=== PATIENT | female | born 1960 | race Caucasian/White ===

== ENCOUNTER 2017-03-19 18:19 | Emergency (ER) | payer MEDICAID ==
--- NOTE | 2017-03-19 20:09 | EDM.PDOCBH ---
ED HPI GENERAL MEDICAL PROBLEM - General Chief Complaint: Drug or Alcohol Abuse Stated Complaint: EVAL Time Seen by Provider: 03/19/17 19:39 Source of Information: Reports: Patient, Family, RN Notes Reviewed History Limitations: Reports: Intoxication - History of Present Illness INITIAL COMMENTS - FREE TEXT/NARRATIVE: 56-year-old female presents emergency department today with her parents concern about alcohol use, she has a long history of alcohol abuse and intoxication she has been drinking today parents found a half gallon of gin empty bottle into full half gallons of [place] at her apartment they believe she was drinking today she did admit to that she denies any suicidal ideation or homicidal ideation she has a history of alcohol withdrawal has been through treatment multiple times she is unwilling to go to treatment at this time. She is willing to provide blood work and urine Denies Pain Score (Numeric/FACES): 0 - Related Data Allergies Allergy/AdvReac Type Severity Reaction Status Date / Time Fish Containing Products Allergy Anaphylactic Verified 03/19/17 18:44 Shock nut - unspecified Allergy Anaphylactic Verified 03/19/17 18:44 Shock Home Meds: Home Meds Albuterol Sulfate [Ventolin Hfa] 1 - 2 puff INH Q4H PRN 03/19/17 [History] Doxepin [SINEquan] 50 mg PO BEDTIME 03/19/17 [History] EPINEPHrine [Epinephrine] 1 mg INJECT ASDIRECTED 03/19/17 [History] QUEtiapine [SEROquel] 100 mg PO BEDTIME 03/19/17 [History] Past Medical History HEENT History: Reports: Impaired Vision Respiratory History: Reports: Asthma 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: Psychiatric History: Reports: Addiction, Anxiety, Depression - Infectious Disease History Infectious Disease History: Reports: Chicken Pox - Past Surgical History HEENT Surgical History: Reports: Tonsillectomy Social & Family History - Tobacco Use Smoking Status *Q: Current Some Day Smoker Years of Tobacco use: 30 Packs/Tins Daily: 0.5 - Caffeine Use Caffeine Use: Reports: Coffee - Alcohol Use Days Per Week of Alcohol Use: 7 Number of Drinks Per Day: 7 Total Drinks Per Week: 49 - Recreational Drug Use Recreational Drug Use: No ED ROS GENERAL - Review of Systems Review Of Systems: See Below Constitutional: Reports: No Symptoms HEENT: Reports: No Symptoms Respiratory: Reports: No Symptoms Cardiovascular: Reports: No Symptoms GI/Abdominal: Reports: No Symptoms : Reports: No Symptoms Psychiatric: Reports: Agitation, Cravings, Depression. Denies: Homicidal Ideation, Suicidal Ideation ED EXAM, BEHAVIORAL HEALTH - Physical Exam Exam: See Below Exam Limited By: Intoxication General Appearance: Alert, No Apparent Distress Respiratory/Chest: No Respiratory Distress Psychiatric: Alert, Depressed Mood, Inattentive, Poor Eye Contact. No: Homicidal Thoughts, Suicidal Plan, Suicidal Thoughts, Auditory Hallucinations, Visual Hallucinations, Grandiose Thoughts, Pressured Speech, Paranoid Thoughts COURSE, BEHAVIORAL HEALTH COMP - Course Vital Signs: Last Vital Signs Temp 96.8 F 03/19/17 18:42 Pulse 101 H 03/19/17 18:42 Resp 16 03/19/17 18:42 BP 136/87 03/19/17 18:42 Pulse Ox 94 L 03/19/17 18:42 Orders, Labs, Meds: Laboratory Tests 03/19/17 03/19/17 03/19/17 Range/Units 20:18 20:18 20:18 WBC 3.2 L (4.5-11.0) K/uL RBC 4.32 (3.30-5.50) M/uL Hgb 14.2 (12.0-15.0) g/dL Hct 40.9 (36.0-48.0) % MCV 95 (80-98) fL MCH 33 H (27-31) pg MCHC 35 (32-36) % Plt Count 283 (150-400) K/uL Neut % (Auto) 46 (36-66) % Lymph % (Auto) 40 (24-44) % [place] % (Auto) 8 H (2-6) % Eos % (Auto) 4 (2-4) % Baso % (Auto) 4 H (0-1) % Sodium 146 (140-148) mmol/L Potassium 3.5 L (3.6-5.2) mmol/L Chloride 106 (100-108) mmol/L Carbon Dioxide 27 (21-32) mmol/L Anion Gap 16.5 H (5.0-14.0) mmol/L BUN 5 L (7-18) mg/dL Creatinine 0.6 (0.6-1.0) mg/dL Est Cr Clr Drug Dosing 78.06 mL/min Estimated GFR (MDRD) > 60 (>60) Glucose 90 (74-106) mg/dL Calcium 8.5 (8.5-10.1) mg/dL Total Bilirubin 0.6 (0.2-1.0) mg/dL AST 59 H (15-37) U/L ALT 45 (12-78) U/L Alkaline Phosphatase 126 H (46-116) U/L Total Protein 6.9 (6.4-8.2) g/dL Albumin 3.5 (3.4-5.0) g/dL Globulin 3.4 (2.3-3.5) g/dL Albumin/Globulin Ratio 1.0 L (1.2-2.2) TSH, Ultra Sensitive 7.955 H (0.358-3.740) uIU/mL Urine Color Urine Appearance Urine pH (4.5-8.0) Ur Specific [place] (1.008-1.030) Urine Protein (NEGATIVE) mg/dL Urine Glucose (UA) (NEGATIVE) mg/dL Urine Ketones (NEGATIVE) mg/dL Urine Occult Blood (NEGATIVE) Urine Nitrite (NEGATIVE) Urine Bilirubin (NEGATIVE) Urine Urobilinogen (NORMAL) mg/dL Ur Leukocyte Esterase (NEGATIVE) Urine RBC (0-5) Urine WBC (0-5) Ur Epithelial Cells Amorphous Sediment Urine Bacteria Urine Mucus Salicylates (2.0-20.0) mg/dL Urine Opiates Screen (NEGATIVE) Ur Oxycodone Screen (NEGATIVE) Urine Methadone Screen (NEGATIVE) Ur Propoxyphene Screen (NEGATIVE) Acetaminophen 0.0 L (10.0-30.0) ug/mL Ur Barbiturates Screen (NEGATIVE) Ur Tricyclics Screen (NEGATIVE) Ur Phencyclidine Scrn (NEGATIVE) Ur Amphetamine Screen (NEGATIVE) U Methamphetamines Scrn (NEGATIVE) Urine MDMA Screen (NEGATIVE) U Benzodiazepines Scrn (NEGATIVE) U Cocaine Metab Screen (NEGATIVE) U Marijuana (THC) Screen (NEGATIVE) Ethyl Alcohol mg/dL 03/19/17 03/19/17 03/19/17 Range/Units 20:18 20:18 22:16 WBC (4.5-11.0) K/uL RBC (3.30-5.50) M/uL Hgb (12.0-15.0) g/dL Hct (36.0-48.0) % MCV (80-98) fL MCH (27-31) pg MCHC (32-36) % Plt Count (150-400) K/uL Neut % (Auto) (36-66) % Lymph % (Auto) (24-44) % [place] % (Auto) (2-6) % Eos % (Auto) (2-4) % Baso % (Auto) (0-1) % Sodium (140-148) mmol/L Potassium (3.6-5.2) mmol/L Chloride (100-108) mmol/L Carbon Dioxide (21-32) mmol/L Anion Gap (5.0-14.0) mmol/L BUN (7-18) mg/dL Creatinine (0.6-1.0) mg/dL Est Cr Clr Drug Dosing mL/min Estimated GFR (MDRD) (>60) Glucose (74-106) mg/dL Calcium (8.5-10.1) mg/dL Total Bilirubin (0.2-1.0) mg/dL AST (15-37) U/L ALT (12-78) U/L Alkaline Phosphatase (46-116) U/L Total Protein (6.4-8.2) g/dL Albumin (3.4-5.0) g/dL Globulin (2.3-3.5) g/dL Albumin/Globulin Ratio (1.2-2.2) TSH, Ultra Sensitive (0.358-3.740) uIU/mL Urine Color Urine Appearance Urine pH (4.5-8.0) Ur Specific [place] (1.008-1.030) Urine Protein (NEGATIVE) mg/dL Urine Glucose (UA) (NEGATIVE) mg/dL Urine Ketones (NEGATIVE) mg/dL Urine Occult Blood (NEGATIVE) Urine Nitrite (NEGATIVE) Urine Bilirubin (NEGATIVE) Urine Urobilinogen (NORMAL) mg/dL Ur Leukocyte Esterase (NEGATIVE) Urine RBC (0-5) Urine WBC (0-5) Ur Epithelial Cells Amorphous Sediment Urine Bacteria Urine Mucus Salicylates 1.1 L (2.0-20.0) mg/dL Urine Opiates Screen Negative (NEGATIVE) Ur Oxycodone Screen Negative (NEGATIVE) Urine Methadone Screen Negative (NEGATIVE) Ur Propoxyphene Screen Negative (NEGATIVE) Acetaminophen (10.0-30.0) ug/mL Ur Barbiturates Screen Negative (NEGATIVE) Ur Tricyclics Screen Positive H (NEGATIVE) Ur Phencyclidine Scrn Negative (NEGATIVE) Ur Amphetamine Screen Negative (NEGATIVE) U Methamphetamines Scrn Negative (NEGATIVE) Urine MDMA Screen Negative (NEGATIVE) U Benzodiazepines Scrn Negative (NEGATIVE) U Cocaine Metab Screen Negative (NEGATIVE) U Marijuana (THC) Screen Negative (NEGATIVE) Ethyl Alcohol 396 mg/dL 03/19/17 03/19/17 Range/Units 22:16 22:35 WBC (4.5-11.0) K/uL RBC (3.30-5.50) M/uL Hgb (12.0-15.0) g/dL Hct (36.0-48.0) % MCV (80-98) fL MCH (27-31) pg MCHC (32-36) % Plt Count (150-400) K/uL Neut % (Auto) (36-66) % Lymph % (Auto) (24-44) % [place] % (Auto) (2-6) % Eos % (Auto) (2-4) % Baso % (Auto) (0-1) % Sodium (140-148) mmol/L Potassium (3.6-5.2) mmol/L Chloride (100-108) mmol/L Carbon Dioxide (21-32) mmol/L Anion Gap (5.0-14.0) mmol/L BUN (7-18) mg/dL Creatinine (0.6-1.0) mg/dL Est Cr Clr Drug Dosing mL/min Estimated GFR (MDRD) (>60) Glucose (74-106) mg/dL Calcium (8.5-10.1) mg/dL Total Bilirubin (0.2-1.0) mg/dL AST (15-37) U/L ALT (12-78) U/L Alkaline Phosphatase (46-116) U/L Total Protein (6.4-8.2) g/dL Albumin (3.4-5.0) g/dL Globulin (2.3-3.5) g/dL Albumin/Globulin Ratio (1.2-2.2) TSH, Ultra Sensitive (0.358-3.740) uIU/mL Urine Color Yellow Urine Appearance Clear Urine pH 8.0 (4.5-8.0) Ur Specific [place] 1.015 (1.008-1.030) Urine Protein Negative (NEGATIVE) mg/dL Urine Glucose (UA) Normal (NEGATIVE) mg/dL Urine Ketones Negative (NEGATIVE) mg/dL Urine Occult Blood Negative (NEGATIVE) Urine Nitrite Negative (NEGATIVE) Urine Bilirubin Negative (NEGATIVE) Urine Urobilinogen Normal (NORMAL) mg/dL Ur Leukocyte Esterase Negative (NEGATIVE) Urine RBC 0-5 (0-5) Urine WBC 0-5 (0-5) Ur Epithelial Cells Few Amorphous Sediment Few Urine Bacteria Rare Urine Mucus Few Salicylates (2.0-20.0) mg/dL Urine Opiates Screen (NEGATIVE) Ur Oxycodone Screen (NEGATIVE) Urine Methadone Screen (NEGATIVE) Ur Propoxyphene Screen (NEGATIVE) Acetaminophen (10.0-30.0) ug/mL Ur Barbiturates Screen (NEGATIVE) Ur Tricyclics Screen (NEGATIVE) Ur Phencyclidine Scrn (NEGATIVE) Ur Amphetamine Screen (NEGATIVE) U Methamphetamines Scrn (NEGATIVE) Urine MDMA Screen (NEGATIVE) U Benzodiazepines Scrn (NEGATIVE) U Cocaine Metab Screen (NEGATIVE) U Marijuana (THC) Screen (NEGATIVE) Ethyl Alcohol 297 mg/dL Departure - Departure Time of Disposition: 23:02 Disposition: DC/Tfer to Inpt Rehab Fac 62 Condition: Fair Clinical Impression: Alcohol abuse - Discharge Information Referrals: PCP,None [Primary Care Provider] - Forms: ED Department Discharge Additional Instructions: Please report to [facility] for further treatment - Assessment/Plan Plan: Assessment Acuity = acute Site and laterality = alcohol abuse and intoxication Etiology = EtOH Manifestations = memory issues Location of injury = Home Lab values = WBC low at 3.2 consistent with a leukopenia AST elevated 59 consistent elevated liver enzymes TSH elevated 7.955 uncertain etiology urine drug screen positive for tricyclics urinalysis unremarkable alcohol initially 396 after 2 hours 297 Plan She is in agreement to go to [facility] for detoxification family will consult social media specialist and pursue long-term alcohol treatment plans This note was dictated using [employer] voice recognition software please call with any questions on syntax or alina.
== END 2017-03-19 23:06 ==
LOC: JP.ED 18:19
DX: F10.129 Alcohol abuse with intoxication, unspecified (principal); J45.909 Unspecified asthma, uncomplicated; F32.9 Major depressive disorder, single episode, unspecified; F41.9 Anxiety disorder, unspecified; F17.210 Nicotine dependence, cigarettes, uncomplicated; Z91.013 Allergy to seafood; Z91.018 Allergy to other foods; Z79.899 Other long term (current) drug therapy; Y90.8 Blood alcohol level of 240 mg/100 ml or more
CPT/HCPCS: 36415; 80053; 80305; 81001; 84443; 85025; 99285; G0480

== ENCOUNTER 2017-04-29 14:57 | Emergency (ER) | payer MEDICAID ==
--- NOTE | 2017-04-29 15:38 | EDM.PDOCBH ---
ED HPI GENERAL MEDICAL PROBLEM - General Chief Complaint: Drug or Alcohol Abuse Stated Complaint: EVAL Time Seen by Provider: 04/29/17 15:25 Source of Information: Reports: Patient, Family History Limitations: Reports: Intoxication - History of Present Illness INITIAL COMMENTS - FREE TEXT/NARRATIVE: 56-year-old chronic alcoholic was brought in by her father after several days of heavy drinking. She was sent up to [facility] detox a month ago and the father has been working on getting a rule 25 to send the patient to nursing home treatment and he thinks he is close to getting it accepted. She wasn't answering her phone today however so he went into check on her and there were 4 bottles of hard liquor in the apartment, several of them empty. Patient herself is not complaining of vomiting or pain but admits to drinking. She is willing to go to detox. 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: Reports: Asthma 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: Psychiatric History: Reports: Addiction, Anxiety, Depression Other Psychiatric History: ADJUSTMENT DISORDER - Infectious Disease History Infectious Disease History: Reports: Chicken Pox - Past Surgical History HEENT Surgical History: Reports: Tonsillectomy Social & Family History - Tobacco Use Smoking Status *Q: Unknown Ever Smoked Years of Tobacco use: 30 Packs/Tins Daily: 0.5 - Caffeine Use Caffeine Use: Reports: Coffee - Alcohol Use Days Per Week of Alcohol Use: 7 Number of Drinks Per Day: 7 Total Drinks Per Week: 49 - Recreational Drug Use Recreational Drug Use: No ED ROS GENERAL - Review of Systems Review Of Systems: See Below Constitutional: Denies: Fever, Chills Respiratory: Denies: Shortness of Breath, Cough Cardiovascular: Denies: Chest Pain GI/Abdominal: Denies: Abdominal Pain, Nausea, Vomiting Skin: Reports: Other (Hypererythema of the face) Neurological: Reports: Other (Patient is suffering some significant short-term memory problems from the chronic alcoholism) Psychiatric: Reports: Anxiety ED EXAM, BEHAVIORAL HEALTH - Physical Exam Exam: See Below Exam Limited By: Intoxication General Appearance: Alert, No Apparent Distress Eye Exam: Bilateral Eye: EOMI (No jaundice) Throat/Mouth: Normal Inspection Respiratory/Chest: No Respiratory Distress, Lungs Clear Cardiovascular: Regular Rate, Rhythm, Extra Beats (Occasional ectopic beats) GI/Abdominal: Normal Bowel Sounds, Soft, Non-Tender Extremities: No: Pedal Edema Neurological: Alert, No Motor/Sensory Deficits, Oriented x 3 Psychiatric: Flat Affect COURSE, BEHAVIORAL HEALTH COMP - Course Vital Signs: Last Vital Signs Temp 98.2 F 04/29/17 17:13 Pulse 112 H 04/29/17 17:13 Resp 16 04/29/17 17:13 BP 117/77 04/29/17 17:13 Pulse Ox 95 04/29/17 17:13 Orders, Labs, Meds: Laboratory Tests 04/29/17 04/29/17 04/29/17 Range/Units 15:53 15:53 15:53 WBC 4.1 L (4.5-11.0) K/uL RBC 4.47 (3.30-5.50) M/uL Hgb 15.0 (12.0-15.0) g/dL Hct 43.0 (36.0-48.0) % MCV 96 (80-98) fL MCH 34 H (27-31) pg MCHC 35 (32-36) % Plt Count 213 (150-400) K/uL Neut % (Auto) 51 (36-66) % Lymph % (Auto) 39 (24-44) % [place] % (Auto) 4 (2-6) % Eos % (Auto) 4 (2-4) % Baso % (Auto) 2 H (0-1) % Sodium 144 (140-148) mmol/L Potassium 4.0 (3.6-5.2) mmol/L Chloride 104 (100-108) mmol/L Carbon Dioxide 21 (21-32) mmol/L Anion Gap 18.7 H (5.0-14.0) mmol/L BUN 9 D (7-18) mg/dL Creatinine 0.6 (0.6-1.0) mg/dL Est Cr Clr Drug Dosing 78.06 mL/min Estimated GFR (MDRD) > 60 (>60) Glucose 72 L (74-106) mg/dL Calcium 8.4 L (8.5-10.1) mg/dL Total Bilirubin 0.5 (0.2-1.0) mg/dL AST 48 H (15-37) U/L ALT 28 (12-78) U/L Alkaline Phosphatase 119 H (46-116) U/L Total Protein 7.3 (6.4-8.2) g/dL Albumin 3.5 (3.4-5.0) g/dL Globulin 3.8 H (2.3-3.5) g/dL Albumin/Globulin Ratio 0.9 L (1.2-2.2) Ethyl Alcohol 343 mg/dL Re-Assessment/Re-Exam: CBC, CMP and EtOH were obtained. Hopefully she can be transferred back out to [place] and when discharged will go directly to long-term treatment. EtOH is 0.363, the rest of her labs showed no significant issues preventing her from going to detox. Her father is willing to take her out there. Departure - Departure Time of Disposition: 17:16 Disposition: DC/Tfer to Other Condition: Fair Clinical Impression: Alcohol abuse Alcohol intoxication Qualifiers: Complication of substance-induced condition: with unspecified complication Qualified Code(s): F10.929 - Alcohol use, unspecified with intoxication, unspecified - Discharge Information Instructions: Alcohol Intoxication, [id number] Referrals: Sagrario Arevalo MD [Primary Care Provider] - Forms: ED Department Discharge Care Plan Goals: Patient will be transferred to [place] by her father for detox and hopefully extended chemical dependency treatment very soon.
== END 2017-04-29 17:17 | disposition other institution (70) ==
LOC: JP.ED 14:57
DX: F10.129 Alcohol abuse with intoxication, unspecified (principal); Y90.8 Blood alcohol level of 240 mg/100 ml or more; Z91.013 Allergy to seafood; Z91.018 Allergy to other foods
CPT/HCPCS: 36415; 80053; 85025; 99284; G0480

== ENCOUNTER 2017-08-01 13:24 | Emergency (ER) | payer MEDICAID ==
--- NOTE | 2017-08-01 13:59 | EDM.PDOC ---
ED HPI GENERAL MEDICAL PROBLEM - General Chief Complaint: Drug or Alcohol Abuse Stated Complaint: DRINKING NEEDS HELP Time Seen by Provider: 08/01/17 13:50 Source of Information: Reports: Patient, Family History Limitations: Reports: No Limitations - History of Present Illness INITIAL COMMENTS - FREE TEXT/NARRATIVE: pt has a long history of etoh abuse and many failures in terms of treatment. She did go through a period of a 2 year sobrietry. She has moved to a apartment and was trying to do outpt treatment. She has failed to continue to go and she is very intoxicated today. She has grown children and they do not live around here. Onset: Other ( Pt has a etoh problem for a number of years. ) Duration: Week(s): Location: Reports: Generalized Associated Symptoms: Reports: Other (pt has been drinking for a number of days. 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: Psychiatric History: Reports: Addiction, Anxiety, Depression Other Psychiatric History: ADJUSTMENT DISORDER - Infectious Disease History Infectious Disease History: Reports: Chicken Pox - Past Surgical History HEENT Surgical History: Reports: Tonsillectomy Social & Family History - Caffeine Use Caffeine Use: Reports: Coffee ED ROS GENERAL - Review of Systems Review Of Systems: See Below Constitutional: Reports: No Symptoms HEENT: Reports: No Symptoms Respiratory: Reports: No Symptoms Cardiovascular: Reports: No Symptoms Endocrine: Reports: No Symptoms GI/Abdominal: Reports: No Symptoms, Other (pt has not been eating well. ) : Reports: No Symptoms Musculoskeletal: Reports: No Symptoms Skin: Reports: No Symptoms Neurological: Reports: Other ( at first she was not willing to communicate but she did open open and talk. She is will to go to detox. ) - Physical Exam Exam: See Below Text/Narrative:: Pt is intoxicated but she is communicating. She is willinf to go to detox and treatment. Her dad is with her and is considering a committment. I discussed with her the possibly of a skilled nursing house. Exam Limited By: No Limitations General Appearance: Alert, Anxious, Other (pupils equal and reactive) Ears: Normal TMs Nose: Normal Inspection Throat/Mouth: Normal Inspection Head Exam: Atraumatic Neck: Normal Inspection Respiratory/Chest: No Respiratory Distress Cardiovascular: Regular Rate, Rhythm GI/Abdominal: Soft, Non-Tender (Female) Exam: Deferred Rectal (Female) Exam: Deferred Neuro Exam (Abbreviated): Alert, Oriented, Normal Cognition, Other (pt is intoxicated) Back Exam: Normal Inspection Extremities: Normal Inspection Psychiatric: Normal Affect Course - Vital Signs Last Recorded V/S: Last Vital Signs Temp 36.2 C 08/01/17 14:00 Pulse 125 H 08/01/17 14:00 Resp 18 08/01/17 14:00 BP 165/112 H 08/01/17 14:00 Pulse Ox 96 08/01/17 14:00 - Orders/Labs/Meds Orders: Active Orders 24 hr Category Date Time Status CULTURE URINE [RM] Stat Lab 08/01/17 14:58 Received DRUG SCREEN, URINE [URCHEM] Stat Lab 08/01/17 14:20 Ordered UA W/MICROSCOPIC [URIN] Urgent Lab 08/01/17 14:20 Ordered Labs: Laboratory Tests 08/01/17 08/01/17 08/01/17 Range/Units 13:51 13:51 13:51 WBC 6.0 (4.5-11.0) K/uL RBC 5.62 H (3.30-5.50) M/uL Hgb 16.9 H (12.0-15.0) g/dL Hct 47.7 (36.0-48.0) % MCV 85 (80-98) fL MCH 30 (27-31) pg MCHC 35 (32-36) % Plt Count 279 (150-400) K/uL Neut % (Auto) 53 (36-66) % Lymph % (Auto) 33 (24-44) % [place] % (Auto) 5 (2-6) % Eos % (Auto) 7 H (2-4) % Baso % (Auto) 3 H (0-1) % Sodium 139 L (140-148) mmol/L Potassium 3.5 L (3.6-5.2) mmol/L Chloride 101 (100-108) mmol/L Carbon Dioxide 23 (21-32) mmol/L Anion Gap 18.5 H (5.0-14.0) mmol/L BUN 4 L D (7-18) mg/dL Creatinine 0.8 (0.6-1.0) mg/dL Est Cr Clr Drug Dosing 58.55 mL/min Estimated GFR (MDRD) > 60 (>60) Glucose 93 (74-106) mg/dL Calcium 8.3 L (8.5-10.1) mg/dL Total Bilirubin 0.6 (0.2-1.0) mg/dL AST 40 H (15-37) U/L ALT 31 (12-78) U/L Alkaline Phosphatase 117 H (46-116) U/L Total Protein 8.3 H (6.4-8.2) g/dL Albumin 4.1 (3.4-5.0) g/dL Globulin 4.2 H (2.3-3.5) g/dL Albumin/Globulin Ratio 1.0 L (1.2-2.2) Urine Color Urine Appearance Urine pH (4.5-8.0) Ur Specific [place] (1.008-1.030) Urine Protein (NEGATIVE) mg/dL Urine Glucose (UA) (NEGATIVE) mg/dL Urine Ketones (NEGATIVE) mg/dL Urine Occult Blood (NEGATIVE) Urine Nitrite (NEGATIVE) Urine Bilirubin (NEGATIVE) Urine Urobilinogen (NORMAL) mg/dL Ur Leukocyte Esterase (NEGATIVE) Urine RBC (0-5) Urine WBC (0-5) Ur Epithelial Cells Amorphous Sediment Urine Bacteria Urine Mucus Urine Opiates Screen (NEGATIVE) Ur Oxycodone Screen (NEGATIVE) Urine Methadone Screen (NEGATIVE) Ur Propoxyphene Screen (NEGATIVE) Ur Barbiturates Screen (NEGATIVE) Ur Tricyclics Screen (NEGATIVE) Ur Phencyclidine Scrn (NEGATIVE) Ur Amphetamine Screen (NEGATIVE) U Methamphetamines Scrn (NEGATIVE) Urine MDMA Screen (NEGATIVE) U Benzodiazepines Scrn (NEGATIVE) U Cocaine Metab Screen (NEGATIVE) U Marijuana (THC) Screen (NEGATIVE) Ethyl Alcohol 314 mg/dL 08/01/17 08/01/17 Range/Units 14:20 14:20 WBC (4.5-11.0) K/uL RBC (3.30-5.50) M/uL Hgb (12.0-15.0) g/dL Hct (36.0-48.0) % MCV (80-98) fL MCH (27-31) pg MCHC (32-36) % Plt Count (150-400) K/uL Neut % (Auto) (36-66) % Lymph % (Auto) (24-44) % [place] % (Auto) (2-6) % Eos % (Auto) (2-4) % Baso % (Auto) (0-1) % Sodium (140-148) mmol/L Potassium (3.6-5.2) mmol/L Chloride (100-108) mmol/L Carbon Dioxide (21-32) mmol/L Anion Gap (5.0-14.0) mmol/L BUN (7-18) mg/dL Creatinine (0.6-1.0) mg/dL Est Cr Clr Drug Dosing mL/min Estimated GFR (MDRD) (>60) Glucose (74-106) mg/dL Calcium (8.5-10.1) mg/dL Total Bilirubin (0.2-1.0) mg/dL AST (15-37) U/L ALT (12-78) U/L Alkaline Phosphatase (46-116) U/L Total Protein (6.4-8.2) g/dL Albumin (3.4-5.0) g/dL Globulin (2.3-3.5) g/dL Albumin/Globulin Ratio (1.2-2.2) Urine Color Yellow Urine Appearance Cloudy Urine pH 5.0 (4.5-8.0) Ur Specific [place] 1.010 (1.008-1.030) Urine Protein Trace (NEGATIVE) mg/dL Urine Glucose (UA) Normal (NEGATIVE) mg/dL Urine Ketones 50 H (NEGATIVE) mg/dL Urine Occult Blood Negative (NEGATIVE) Urine Nitrite Negative (NEGATIVE) Urine Bilirubin Negative (NEGATIVE) Urine Urobilinogen Normal (NORMAL) mg/dL Ur Leukocyte Esterase Large (NEGATIVE) Urine RBC 0-5 (0-5) Urine WBC 5-10 H (0-5) Ur Epithelial Cells Many Amorphous Sediment Not seen Urine Bacteria Rare Urine Mucus Not seen Urine Opiates Screen Negative (NEGATIVE) Ur Oxycodone Screen Negative (NEGATIVE) Urine Methadone Screen Negative (NEGATIVE) Ur Propoxyphene Screen Negative (NEGATIVE) Ur Barbiturates Screen Negative (NEGATIVE) Ur Tricyclics Screen Negative (NEGATIVE) Ur Phencyclidine Scrn Negative (NEGATIVE) Ur Amphetamine Screen Negative (NEGATIVE) U Methamphetamines Scrn Negative (NEGATIVE) Urine MDMA Screen Negative (NEGATIVE) U Benzodiazepines Scrn Negative (NEGATIVE) U Cocaine Metab Screen Negative (NEGATIVE) U Marijuana (THC) Screen Negative (NEGATIVE) Ethyl Alcohol mg/dL Meds: Medications Discontinued Medications Generic Name Dose Route Start Last Admin Trade Name Freq PRN Reason Stop Dose Admin Lorazepam 0.5 mg 08/01/17 15:14 Ativan PO 08/01/17 15:15 ONETIME ONE - Re-Assessments/Exams Free Text/Narrative Re-Assessment/Exam: 08/01/17 15:26 etoh was .315. Her other labs look ok. Her drug screen is neg. Departure - Departure Time of Disposition: 15:14 Disposition: Home, Self-Care 01 Condition: Fair Clinical Impression: Intoxication - Discharge Information Referrals: Sagrario Arevalo MD [Primary Care Provider] - Forms: ED Department Discharge Care Plan Goals: transfer [facility] - My Orders Last 24 Hours: My Active Orders 08/01/17 14:20 DRUG SCREEN, URINE [URCHEM] Stat UA W/MICROSCOPIC [URIN] Urgent 08/01/17 14:58 CULTURE URINE [RM] Stat - Assessment/Plan Last 24 Hours: My Active Orders 08/01/17 14:20 DRUG SCREEN, URINE [URCHEM] Stat UA W/MICROSCOPIC [URIN] Urgent 08/01/17 14:58 CULTURE URINE [RM] Stat
[2017-08-01] MEDS ORDERED: LORazepam 0.5 MG Tab PO ONE (15:14)
== END 2017-08-01 15:49 | disposition home or self-care (01) ==
LOC: JP.ED 13:24
DX: F10.129 Alcohol abuse with intoxication, unspecified (principal); Y90.8 Blood alcohol level of 240 mg/100 ml or more; F41.9 Anxiety disorder, unspecified; F32.9 Major depressive disorder, single episode, unspecified; J45.909 Unspecified asthma, uncomplicated; Z79.899 Other long term (current) drug therapy; Z91.013 Allergy to seafood; Z91.018 Allergy to other foods
CPT/HCPCS: 36415; 80053; 80305; 81001; 85025; 87086; 99284; A9270; G0480

== ENCOUNTER 2018-11-07 10:13 | Observation (INO) | payer MEDICAID ==
--- NOTE | 2018-11-07 10:42 | EDM.PDOC ---
ED HPI GENERAL MEDICAL PROBLEM - General Chief Complaint: Drug or Alcohol Abuse Stated Complaint: TOO MANY MEDS Time Seen by Provider: 11/07/18 10:33 Source of Information: Reports: EMS, Family History Limitations: Reports: Altered Mental Status - History of Present Illness INITIAL COMMENTS - FREE TEXT/NARRATIVE: Patient presents from home by EMS after being found poorly responsive by family this morning. Last known well time was last night. She was at her parents residents all day yesterday and had dinner with some last night. She wanted to return to her apartment and her parents brought her there later in the evening. She is a recovering alcoholic and has had some alcohol use incidents recently. She is under mandated rehabilitation for alcoholism and [place] [facility] [place] [facility] [place]. When family arrived at her apartment, found her as she is now. Patient is not an accurate historian and the majority of details are obtained from paramedics and also her parents, who arrived later. She gave some one-word answers to questions when I saw her on arrival. Later, her mother was at the bedside and patient would turn her head toward her mother and just repeat the word "mom" over and over. When asked if she hurts anywhere she says no. When asked if she had any questions for me she said no however given current mental status review of systems will be unreliable. An empty bottle of Lunesta with a fill date of 21 October, was found along with an empty bottle of naproxen tablets. Onset: Unknown/Unsure Severity: Moderate Treatments CLINICAL NEUROPSYCHOLOGIST: Reports: IV/IO - Related Data Allergies Allergy/AdvReac Type Severity Reaction Status Date / Time Fish Containing Products Allergy Anaphylactic Verified 11/07/18 10:24 Shock nut - unspecified Allergy Anaphylactic Verified 11/07/18 10:24 Shock Home Meds: Home Meds Albuterol Sulfate [Ventolin Hfa] 1 - 2 puff INH Q4H PRN 03/19/17 [History] Doxepin [SINEquan] 75 mg PO BEDTIME 03/19/17 [History] EPINEPHrine [Epinephrine] 1 mg INJECT ASDIRECTED 03/19/17 [History] Eszopiclone 2 mg PO BEDTIME 08/01/17 [History] Past Medical History HEENT History: Reports: Impaired Vision Respiratory History: Reports: Asthma RESEARCH STATISTICIAN History: Reports: Neurological History: Reports: Seizure Other Neuro History: with ETOH withdrawl Psychiatric History: Reports: Addiction, Anxiety, Depression Other Psychiatric History: ADJUSTMENT DISORDER Dermatologic History: Reports: Eczema - Infectious Disease History Infectious Disease History: Reports: Chicken Pox - Past Surgical History HEENT Surgical History: Reports: Tonsillectomy Social & Family History - Tobacco Use Smoking Status *Q: Unknown Ever Smoked - Caffeine Use Caffeine Use: Reports: Coffee ED ROS GENERAL - Review of Systems Review Of Systems: Unable To Obtain - Physical Exam Exam: See Below Exam Limited By: Altered Mental Status General Appearance: Lethargic Throat/Mouth: Normal Inspection Head Exam: Facial Ecchymosis (Right temporal, maxillary, mandibular region) Neck: Supple, Other (She moves her head from side to side and briefly flexes the neck voluntarily and does not appear to have any painful location.) Respiratory/Chest: No Respiratory Distress, Lungs Clear Cardiovascular: Regular Rate, Rhythm GI/Abdominal: Soft, Non-Tender Neuro Exam (Abbreviated): Confused, Slow to Respond Extremities: Other (Apparently nontender according to palpation however there are multiple small bruises and abrasions were the lower extremities. She was lying on cart in the emergency department with her ankles crossed by her own volition.) Psychiatric: Other (Diminished responsiveness as noted.) Skin Exam: Warm Course - Vital Signs Last Recorded V/S: Last Vital Signs Temp 35.2 C L 11/07/18 10:23 Pulse 119 H 11/07/18 15:16 Resp 22 H 11/07/18 15:16 BP 94/49 L 11/07/18 15:16 Pulse Ox 95 11/07/18 11:15 - Orders/Labs/Meds Orders: Active Orders 24 hr Category Date Time Status Patient Status Manage Transfer [TRANSFER] Routine ADT 11/07/18 14:52 Active Potassium Chloride 20 meq Med 11/07/18 15:00 Active Lidocaine 1% [Xylocaine 1%] 2 ml Sodium Chloride 0.9% [Normal Saline] 100 ml IV Q2H Sodium Chloride 0.9% [Normal Saline] 1,000 ml Med 11/07/18 11:00 Ordered IV ASDIRECTED Resuscitation Status Routine Resus Stat 11/07/18 14:55 Ordered Medication Orders Sodium Chloride (Normal Saline) 1,000 mls @ 250 mls/hr IV ASDIRECTED JUSTO Last Admin: 11/07/18 11:25 Dose: 250 mls/hr Potassium Chloride 20 meq/Lidocaine HCl 2 ml/ Sodium Chloride 112 mls @ 50 mls/ hr IV Q2H JUSTO Stop: 11/07/18 16:59 Last Admin: 11/07/18 15:27 Dose: 50 mls/hr Labs: Laboratory Tests 11/07/18 11/07/18 11/07/18 Range/Units 11:04 11:04 11:04 Sodium 139 L (140-148) mmol/L Potassium 2.8 L* (3.6-5.2) mmol/L Chloride 98 L (100-108) mmol/L Carbon Dioxide 21 (21-32) mmol/L Anion Gap 22.8 H (5.0-14.0) mmol/L BUN 18 D (7-18) mg/dL Creatinine 0.7 (0.6-1.0) mg/dL Est Cr Clr Drug Dosing 65.37 mL/min Estimated GFR (MDRD) > 60 (>60) Glucose 83 (74-106) mg/dL Calcium 8.8 (8.5-10.1) mg/dL Total Bilirubin 0.9 (0.2-1.0) mg/dL AST 22 (15-37) U/L ALT 26 (12-78) U/L Alkaline Phosphatase 82 (46-116) U/L Total Protein 7.9 (6.4-8.2) g/dL Albumin 4.2 (3.4-5.0) g/dL Globulin 3.7 H (2.3-3.5) g/dL Albumin/Globulin Ratio 1.1 L (1.2-2.2) Lipase 263 (73-393) U/L Urine Color (YELLOW) Urine Appearance (CLEAR) Urine pH (5.0-8.0) Ur Specific [place] (1.008-1.030) Urine Protein (NEGATIVE) mg/dL Urine Glucose (UA) (NEGATIVE) mg/dL Urine Ketones (NEGATIVE) mg/dL Urine Occult Blood (NEGATIVE) Urine Nitrite (NEGATIVE) Urine Bilirubin (NEGATIVE) Urine Urobilinogen (0.2-1.0) EU/dL Ur Leukocyte Esterase (NEGATIVE) Urine RBC (0-5) Urine WBC (0-5) Ur Epithelial Cells Amorphous Sediment Urine Bacteria Urine Mucus Salicylates 0.9 L (2.0-20.0) mg/dL Urine Opiates Screen (NEGATIVE) Ur Oxycodone Screen (NEGATIVE) Urine Methadone Screen (NEGATIVE) Ur Propoxyphene Screen (NEGATIVE) Acetaminophen 2.7 L (10.0-30.0) ug/mL Ur Barbiturates Screen (NEGATIVE) Ur Tricyclics Screen (NEGATIVE) Ur Phencyclidine Scrn (NEGATIVE) Ur Amphetamine Screen (NEGATIVE) U Methamphetamines Scrn (NEGATIVE) Urine MDMA Screen (NEGATIVE) U Benzodiazepines Scrn (NEGATIVE) U Cocaine Metab Screen (NEGATIVE) U Marijuana (THC) Screen (NEGATIVE) Ethyl Alcohol 458 mg/dL 11/07/18 11/07/18 Range/Units 11:24 11:24 Sodium (140-148) mmol/L Potassium (3.6-5.2) mmol/L Chloride (100-108) mmol/L Carbon Dioxide (21-32) mmol/L Anion Gap (5.0-14.0) mmol/L BUN (7-18) mg/dL Creatinine (0.6-1.0) mg/dL Est Cr Clr Drug Dosing mL/min Estimated GFR (MDRD) (>60) Glucose (74-106) mg/dL Calcium (8.5-10.1) mg/dL Total Bilirubin (0.2-1.0) mg/dL AST (15-37) U/L ALT (12-78) U/L Alkaline Phosphatase (46-116) U/L Total Protein (6.4-8.2) g/dL Albumin (3.4-5.0) g/dL Globulin (2.3-3.5) g/dL Albumin/Globulin Ratio (1.2-2.2) Lipase (73-393) U/L Urine Color Yellow (YELLOW) Urine Appearance Clear (CLEAR) Urine pH 5.5 (5.0-8.0) Ur Specific [place] 1.025 (1.008-1.030) Urine Protein Negative (NEGATIVE) mg/dL Urine Glucose (UA) Negative (NEGATIVE) mg/dL Urine Ketones 15 H (NEGATIVE) mg/dL Urine Occult Blood Negative (NEGATIVE) Urine Nitrite Negative (NEGATIVE) Urine Bilirubin Negative (NEGATIVE) Urine Urobilinogen 0.2 (0.2-1.0) EU/dL Ur Leukocyte Esterase Negative (NEGATIVE) Urine RBC Not seen (0-5) Urine WBC Not seen (0-5) Ur Epithelial Cells Not seen Amorphous Sediment Rare Urine Bacteria Not seen Urine Mucus Not seen Salicylates (2.0-20.0) mg/dL Urine Opiates Screen Negative (NEGATIVE) Ur Oxycodone Screen Presumptive positive H (NEGATIVE) Urine Methadone Screen Negative (NEGATIVE) Ur Propoxyphene Screen Negative (NEGATIVE) Acetaminophen (10.0-30.0) ug/mL Ur Barbiturates Screen Negative (NEGATIVE) Ur Tricyclics Screen Presumptive positive H (NEGATIVE) Ur Phencyclidine Scrn Negative (NEGATIVE) Ur Amphetamine Screen Negative (NEGATIVE) U Methamphetamines Scrn Negative (NEGATIVE) Urine MDMA Screen Negative (NEGATIVE) U Benzodiazepines Scrn Negative (NEGATIVE) U Cocaine Metab Screen Negative (NEGATIVE) U Marijuana (THC) Screen Negative (NEGATIVE) Ethyl Alcohol mg/dL Meds: Medications Generic Name Dose Route Start Last Admin Trade Name Freq PRN Reason Stop Dose Admin Sodium Chloride 1,000 mls @ 250 mls/hr 11/07/18 11:00 11/07/18 11:25 Normal Saline IV 250 mls/hr ASDIRECTED JUSTO Administration Potassium Chloride 20 meq/ 112 mls @ 50 mls/hr 11/07/18 15:00 11/07/18 15:27 Lidocaine HCl 2 ml/ Sodium IV 11/07/18 16:59 50 mls/hr Chloride Q2H JUSTO Administration Discontinued Medications Generic Name Dose Route Start Last Admin Trade Name Freq PRN Reason Stop Dose Admin Potassium Chloride 40 meq 11/07/18 14:50 11/07/18 15:27 Klor-Con M20 PO 11/07/18 14:51 40 meq ONETIME ONE Administration - Re-Assessments/Exams Free Text/Narrative Re-Assessment/Exam: 11/07/18 11:01 Patient will be given normal saline at 250 mL per hour. We will need to scan the brain and the facial bones. She is moving her head from side to side and flexing the neck without apparent pain or limitation. It is uncertain whether this was an accidental or intentional medication ingestion event? On return from CT scanning, she was verbalizing phrases rather than single word replies. 11/07/18 11:17 11/07/18 12:26 I returned to the room to review lab tests with the patient. When I called her name, she did open her eyes and listened to me. I explained that her blood alcohol was high and that her potassium level was low and that we would need to have her in the hospital to get her feeling better. She then sat up and stated that she needed to go and she needed to get her clothes on. I explained that I was concerned for her health and we needed to have her in the hospital. She became somewhat more agitated. Her mother came to the bedside and was able to calm her and get her to lie down again. I will review her case with hospital service. 11/07/18 15:34 Dr. Bain came to evaluate the patient. He spoke with her parents and also explained care plan with patient. She remained in stable condition while in the department. Departure - Departure Time of Disposition: 15:39 Disposition: Admitted As Inpatient 65 Condition: Fair Clinical Impression: Altered mental status, Contusion of face, Alcohol abuse, Hypokalemia Alcohol intoxication Qualifiers: Complication of substance-induced condition: with unspecified complication Qualified Code(s): F10.929 - Alcohol use, unspecified with intoxication, unspecified - Discharge Information Referrals: PCP,None [Primary Care Provider] - - My Orders Last 24 Hours: My Active Orders 11/07/18 11:00 Sodium Chloride 0.9% [Normal Saline] 1,000 ml IV ASDIRECTED - Assessment/Plan Last 24 Hours: My Active Orders 11/07/18 11:00 Sodium Chloride 0.9% [Normal Saline] 1,000 ml IV ASDIRECTED
[2018-11-07] MEDS ORDERED: Sodium Chloride 0.9% 1,000 ML IV SCH ×2 (11:00→15:52)
[2018-11-07 11:27] LABS: ACETAMINOPHEN 2.7 ug/mL (10.0-30.0)
--- NOTE | 2018-11-07 12:17 | CRLCT ---
INDICATION: Altered level of consciousness Technique: Non-contrast head CT scan. Findings: No abnormal foci of altered attenuation in the brain parenchyma. No midline shift or mass effect. No hydrocephalus. No abnormal extra-axial fluid collections. No abnormalities identified in the visualized portions of the paranasal sinuses, skull, and scalp. Impression: No evidence of acute intracranial abnormalities. Dictated by: Agustin Smith MD @ 11/07/2018 12:15:37 (Electronically Signed)
--- NOTE | 2018-11-07 12:24 | CRLCT ---
INDICATION: Facial trauma. TECHNIQUE: Noncontrast CT scan of the facial bones with re-formatted images obtained. FINDINGS: No facial bone fractures identified. The paranasal sinuses are well pneumatized and show no air-fluid levels or significant mucous membrane thickening. No other bony or soft tissue abnormalities are identified. Impression : 1. No facial bone fractures identified. Dictated by Agustin Smith MD @ 11/07/2018 12:23:20 PM Dictated by: Agustin Smith MD @ 11/07/2018 12:23:32 (Electronically Signed)
[2018-11-07] MEDS ORDERED: Potassium Chloride 20 MEQ Tab.ER PO ONE (14:50)
[2018-11-07] MEDS ORDERED: Potassium Chloride 20 MEQ, Lidocaine 1% 2 ML in Sodium Chloride 0.9% 100 ML IV SCH (15:00)
--- NOTE | 2018-11-07 15:04 | PCM.HP.2 ---
H&P History of Present Illness - General Date of Service: 11/07/18 Admit Problem/Dx: Admission Diagnosis/Problem Admission Diagnosis/Problem Alcohol intoxication Source of Information: Patient, Family, Provider History Limitations: Reports: No Limitations - History of Present Illness Initial Comments - Free Text/Narative: CC: unresponsive HPI: Mary presents to the emergency room today after being found unresponsive at her home by her parents. Her parents report that they found her yesterday morning very intoxicated. They brought her to their home for the day to let her sober up but took her home about 7 PM. The patient does report to drinking last night but is not sure how much she drank. When her parents found her this morning she had empty pill bottles including Lunesta laying next to her. When I ask her why she took these medications she does not answer. I specifically asked if she took them to hurt herself and she did not answer the question. Initially she was very unresponsive this morning but has perked up as the day has progressed. She does admit to feeling depressed and feels hopeless and helpless. When specifically asked if she is suicidal she says she has not. Her father is very concerned that she took the pills in an attempt to harm herself but she does not say that she did. She keeps telling me that she just wants to sleep. She says that "everything" gets better when she sleeps. She will not further elaborate on that. I asked about anxiety or depression or something else that causes her to want to sleep or be intoxicated and she will not further elaborate. She has a long history of heavy alcohol use and abuse. She has been through treatment multiple times. She has had periods of sobriety following treatment. Last treatment was about 3 months ago. Her parents report that they check on her every day for nearly every day but she does have her own apartment and they do not see her every day. They seem very frustrated and saddened by her long-standing heavy alcohol use and father has discussed the potential for pursuing civil commitment. In the emergency room she was noted to be very intoxicated with a blood alcohol level of more than 400. Urine drug screen was positive for tricyclics and oxycodone. The patient is elusive when asked about these medications specifically. Initially she was obtunded and unable to speak in 1 and 2 and 3 word sentences. She is able to communicate now. Was control has been contacted and they recommended hydration and repeat laboratory testing but did not think there would be any adverse effects from her ingestion other than somnolence. She will be admitted to the intensive care unit for close monitoring. She does have a history of seizures with alcohol withdrawal. Potassium was also low at 2.8. - Related Data Allergies/Adverse Reactions: Allergies Allergy/AdvReac Type Severity Reaction Status Date / Time Fish Containing Products Allergy Anaphylactic Verified 11/07/18 10:24 Shock nut - unspecified Allergy Anaphylactic Verified 11/07/18 10:24 Shock Home Medications: Home Meds Albuterol Sulfate [Ventolin Hfa] 1 - 2 puff INH Q4H PRN 03/19/17 [History] Doxepin [SINEquan] 75 mg PO BEDTIME 03/19/17 [History] EPINEPHrine [Epinephrine] 1 mg INJECT ASDIRECTED 03/19/17 [History] Eszopiclone 2 mg PO BEDTIME 08/01/17 [History] Past Medical History HEENT History: Reports: Impaired Vision Respiratory History: Reports: Asthma [employer] History: Reports: Neurological History: Reports: Seizure Other Neuro History: with ETOH withdrawl Psychiatric History: Reports: Addiction, Anxiety, Depression Other Psychiatric History: ADJUSTMENT DISORDER Dermatologic History: Reports: Eczema - Infectious Disease History Infectious Disease History: Reports: Chicken Pox - Past Surgical History HEENT Surgical History: Reports: Tonsillectomy Social & Family History - Family History Cardiac: Denies: CAD - Tobacco Use Smoking Status *Q: Unknown Ever Smoked - Caffeine Use Caffeine Use: Reports: Coffee - Alcohol Use Alcohol Use History: Yes H&P Review of Systems - Review of Systems: Review Of Systems: See Below Free Text/Narrative: A complete 12 point review of systems was obtained. Pertinent positives and negatives are noted in the history of present illness. All other systems were reviewed and were negative except as noted. Exam - Exam Exam: See Below - Vital Signs Vital Signs: Last Vital Signs Temp 35.2 C L 11/07/18 10:23 Pulse 104 H 11/07/18 12:45 Resp 21 H 11/07/18 12:45 BP 99/52 L 11/07/18 12:45 Pulse Ox 95 11/07/18 11:15 Weight: 58.6 kg - Exam Quality Assessment: No: Supplemental Oxygen General: Alert, Oriented, Cooperative, Mild Distress HEENT: Conjunctiva Clear. No: Mucosa Moist & [place] (dry), Scleral Icterus Neck: Supple, Trachea Midline Lungs: Clear to Auscultation, Normal Respiratory Effort Cardiovascular: Regular Rhythm, Tachycardia GI/Abdominal Exam: Normal Bowel Sounds, Soft, Non-Tender, No Distention. No: Hepatomegaly Extremities: No Pedal Edema. No: Increased Warmth Peripheral Pulses: 2+: Dorsalis Pedis (L), Dorsalis Pedis (R) Skin: Warm, Dry Neuro Extensive - Mental Status: Alert, Oriented x3, Nl Response to Commands Neuro Extensive - Motor, Sensory, Reflexes: No: Dysarthria, Abnormal Motor Psychiatric: Alert, Anxious, Other (tearful ) - Patient Data Lab Results Last 24 hrs: Laboratory Results - last 24 hr 11/07/18 11/07/18 11/07/18 Range/Units 11:04 11:04 11:04 Sodium 139 L (140-148) mmol/L Potassium 2.8 L* (3.6-5.2) mmol/L Chloride 98 L (100-108) mmol/L Carbon Dioxide 21 (21-32) mmol/L Anion Gap 22.8 H (5.0-14.0) mmol/L BUN 18 D (7-18) mg/dL Creatinine 0.7 (0.6-1.0) mg/dL Est Cr Clr Drug Dosing 65.37 mL/min Estimated GFR (MDRD) > 60 (>60) Glucose 83 (74-106) mg/dL Calcium 8.8 (8.5-10.1) mg/dL Total Bilirubin 0.9 (0.2-1.0) mg/dL AST 22 (15-37) U/L ALT 26 (12-78) U/L Alkaline Phosphatase 82 (46-116) U/L Total Protein 7.9 (6.4-8.2) g/dL Albumin 4.2 (3.4-5.0) g/dL Globulin 3.7 H (2.3-3.5) g/dL Albumin/Globulin Ratio 1.1 L (1.2-2.2) Lipase 263 (73-393) U/L Urine Color (YELLOW) Urine Appearance (CLEAR) Urine pH (5.0-8.0) Ur Specific [place] (1.008-1.030) Urine Protein (NEGATIVE) mg/dL Urine Glucose (UA) (NEGATIVE) mg/dL Urine Ketones (NEGATIVE) mg/dL Urine Occult Blood (NEGATIVE) Urine Nitrite (NEGATIVE) Urine Bilirubin (NEGATIVE) Urine Urobilinogen (0.2-1.0) EU/dL Ur Leukocyte Esterase (NEGATIVE) Urine RBC (0-5) Urine WBC (0-5) Ur Epithelial Cells Amorphous Sediment Urine Bacteria Urine Mucus Salicylates 0.9 L (2.0-20.0) mg/dL Urine Opiates Screen (NEGATIVE) Ur Oxycodone Screen (NEGATIVE) Urine Methadone Screen (NEGATIVE) Ur Propoxyphene Screen (NEGATIVE) Acetaminophen 2.7 L (10.0-30.0) ug/mL Ur Barbiturates Screen (NEGATIVE) Ur Tricyclics Screen (NEGATIVE) Ur Phencyclidine Scrn (NEGATIVE) Ur Amphetamine Screen (NEGATIVE) U Methamphetamines Scrn (NEGATIVE) Urine MDMA Screen (NEGATIVE) U Benzodiazepines Scrn (NEGATIVE) U Cocaine Metab Screen (NEGATIVE) U Marijuana (THC) Screen (NEGATIVE) Ethyl Alcohol 458 mg/dL 11/07/18 11/07/18 Range/Units 11:24 11:24 Sodium (140-148) mmol/L Potassium (3.6-5.2) mmol/L Chloride (100-108) mmol/L Carbon Dioxide (21-32) mmol/L Anion Gap (5.0-14.0) mmol/L BUN (7-18) mg/dL Creatinine (0.6-1.0) mg/dL Est Cr Clr Drug Dosing mL/min Estimated GFR (MDRD) (>60) Glucose (74-106) mg/dL Calcium (8.5-10.1) mg/dL Total Bilirubin (0.2-1.0) mg/dL AST (15-37) U/L ALT (12-78) U/L Alkaline Phosphatase (46-116) U/L Total Protein (6.4-8.2) g/dL Albumin (3.4-5.0) g/dL Globulin (2.3-3.5) g/dL Albumin/Globulin Ratio (1.2-2.2) Lipase (73-393) U/L Urine Color Yellow (YELLOW) Urine Appearance Clear (CLEAR) Urine pH 5.5 (5.0-8.0) Ur Specific [place] 1.025 (1.008-1.030) Urine Protein Negative (NEGATIVE) mg/dL Urine Glucose (UA) Negative (NEGATIVE) mg/dL Urine Ketones 15 H (NEGATIVE) mg/dL Urine Occult Blood Negative (NEGATIVE) Urine Nitrite Negative (NEGATIVE) Urine Bilirubin Negative (NEGATIVE) Urine Urobilinogen 0.2 (0.2-1.0) EU/dL Ur Leukocyte Esterase Negative (NEGATIVE) Urine RBC Not seen (0-5) Urine WBC Not seen (0-5) Ur Epithelial Cells Not seen Amorphous Sediment Rare Urine Bacteria Not seen Urine Mucus Not seen Salicylates (2.0-20.0) mg/dL Urine Opiates Screen Negative (NEGATIVE) Ur Oxycodone Screen Presumptive positive H (NEGATIVE) Urine Methadone Screen Negative (NEGATIVE) Ur Propoxyphene Screen Negative (NEGATIVE) Acetaminophen (10.0-30.0) ug/mL Ur Barbiturates Screen Negative (NEGATIVE) Ur Tricyclics Screen Presumptive positive H (NEGATIVE) Ur Phencyclidine Scrn Negative (NEGATIVE) Ur Amphetamine Screen Negative (NEGATIVE) U Methamphetamines Scrn Negative (NEGATIVE) Urine MDMA Screen Negative (NEGATIVE) U Benzodiazepines Scrn Negative (NEGATIVE) U Cocaine Metab Screen Negative (NEGATIVE) U Marijuana (THC) Screen Negative (NEGATIVE) Ethyl Alcohol mg/dL Result Diagrams: 11/07/18 11:04 *Q Meaningful Use (ADM) - VTE Risk Assess *Q Each Risk Factor Represents 1 Point: Age 41 - 59 years Total Score 1 Point Risk Factors: 1 Each Risk Factor Represents 2 Points: None Total Score 2 Point Risk Factors: 0 Each Risk Factor Represents 3 Points: None Total Score 3 Point Risk Factors: 0 Each Risk Factor Represents 5 Points: None Total Score 5 Point Risk Factors: 0 Venous Thromboembolism Risk Factor Score *Q: 1 - Problem List (1) Alcohol abuse with intoxication SNOMED Code(s): 36091902 ICD Code: F10.129 - ALCOHOL ABUSE WITH INTOXICATION, UNSPECIFIED Status: Acute Current Visit: Yes (2) Major depression SNOMED Code(s): 952768703 ICD Code: F32.9 - MAJOR DEPRESSIVE DISORDER, SINGLE EPISODE, UNSPECIFIED Status: Suspected Current Visit: Yes Qualifiers: Major depression recurrence: recurrent Active/Remission status: currently active Major depression episode severity: severe Psychotic features: without psychotic features Qualified Code(s): F33.2 - Major depressive disorder, recurrent severe without psychotic features (3) Hypokalemia SNOMED Code(s): 20142201 ICD Code: E87.6 - HYPOKALEMIA Status: Acute Current Visit: Yes Problem List Initiated/Reviewed/Updated: Yes Orders Last 24hrs: Active Orders 24 hr Category Date Time Status Patient Status Manage Transfer [TRANSFER] Routine ADT 11/07/18 14:52 Ordered Potassium Chloride 20 meq Med 11/07/18 15:00 Active Lidocaine 1% [Xylocaine 1%] 2 ml Sodium Chloride 0.9% [Normal Saline] 100 ml IV Q2H Sodium Chloride 0.9% [Normal Saline] 1,000 ml Med 11/07/18 11:00 Active IV ASDIRECTED Resuscitation Status Routine Resus Stat 11/07/18 14:55 Ordered Medication Orders Sodium Chloride (Normal Saline) 1,000 mls @ 250 mls/hr IV ASDIRECTED JUSTO Last Admin: 11/07/18 11:25 Dose: 250 mls/hr Potassium Chloride 20 meq/Lidocaine HCl 2 ml/ Sodium Chloride 112 mls @ 50 mls/ hr IV Q2H JUSTO Stop: 11/07/18 16:59 Assessment/Plan Comment:: ASSESSMENT AND PLAN - Alcohol abuse with intoxication - long-standing history of use with multiple attempts at treatment. Patient continues to drink in large quantities when she is able. She continues to be intoxicated. -Supplement thiamine and folate -Hydration -Seizure precautions -CIWAA protocol -Gabapentin 400 mg 3 times a day -Reassess tomorrow when she is sober Suspected major depression - patient makes a statement saying she has hopeless and helpless. She does not admit to being suicidal at this time. Her father is concerned that the pill ingestion was an attempt at suicide but she does not endorse this currently. So far she has been elusive about the reason for her drinking but appears to be depressed. She will need to be reevaluated when she is sober. Crisis team evaluation may be considered as well. -Recheck acetaminophen, salicylate and hepatic panel labs this evening -Reassess in the morning Hypokalemia - she is receiving supplementation currently and we will recheck her labs in the morning and provide additional supplementation if needed. Maintenance issues - - DVT prophylaxis - mechanical - GI prophylaxis - not indicated - Nutrition - regular diet - Calvillo catheter - not indicated CODE STATUS - full code Admission justification - patient will be referred observation status for close monitoring, seizure precautions and reevaluation when she is sober Disposition - disposition pending at this time Primary care physician - she has received psychological care through a [facility] Surendra Bain M.D. - Mortality Measure Prognosis:: Poor
[2018-11-07] MEDS ORDERED: Ondansetron 4 MG Tab.DIS PO PRN (15:52)
[2018-11-07] MEDS ORDERED: Acetaminophen 325 MG Tab PO PRN (15:52)
[2018-11-07] MEDS ORDERED: Magnesium Hydroxide 400 MG/5 ML Susp 30 ML Cup PO PRN (15:52)
[2018-11-07] MEDS ORDERED: LORazepam 2 MG/ML SDV IV SCH (15:52)
[2018-11-07] MEDS ORDERED: Ibuprofen 600 MG Tab PO PRN (15:52)
[2018-11-07] MEDS ORDERED: Ondansetron 4 MG/2 ML SDV IV PRN (15:52)
[2018-11-07] MEDS: LORazepam 1 MG Tab PO SCH ×2 (16:44→20:31)
[2018-11-07] MEDS: Folic Acid 1 MG Tab PO SCH (17:17)
[2018-11-07] MEDS: Gabapentin 400 MG Cap PO SCH ×2 (17:17→20:28)
[2018-11-07] MEDS: Thiamine 100 MG Tab PO SCH (17:18)
[2018-11-07 17:40] LABS: ACETAMINOPHEN 1.4 ug/mL (10.0-30.0)
[2018-11-07] MEDS ORDERED: Melatonin 3 MG Tab PO SCH (21:00)
[2018-11-08] MEDS: LORazepam 1 MG Tab PO SCH (01:49)
[2018-11-08] MEDS: Thiamine 100 MG Tab PO SCH (08:32)
[2018-11-08] MEDS: Gabapentin 400 MG Cap PO SCH ×2 (08:32→13:21)
[2018-11-08] MEDS: Folic Acid 1 MG Tab PO SCH (08:32)
--- NOTE | 2018-11-08 10:09 | PCM.PN ---
- Patient Data Vitals - Most Recent: Last Vital Signs Temp 35.8 C 11/08/18 01:50 Pulse 86 11/08/18 08:00 Resp 25 H 11/08/18 08:00 BP 135/89 11/08/18 04:00 Pulse Ox 95 11/08/18 04:00 Weight - Most Recent: 58.6 kg I&O - Last 24 Hours: Intake & Output 11/07/18 11/08/18 11/08/18 22:59 06:59 14:59 Intake Total 899 1364 Balance 899 1364 Lab Results Last 24 Hours: Laboratory Results - last 24 hr 11/07/18 11/07/18 11/07/18 Range/Units 11:04 11:04 11:04 WBC (4.5-11.0) K/uL RBC (3.30-5.50) M/uL Hgb (12.0-15.0) g/dL Hct (36.0-48.0) % MCV (80-98) fL MCH (27-31) pg MCHC (32-36) % Plt Count (150-400) K/uL PT (9.5-12.0) sec INR (0.80-1.20) Sodium 139 L (140-148) mmol/L Potassium 2.8 L* (3.6-5.2) mmol/L Chloride 98 L (100-108) mmol/L Carbon Dioxide 21 (21-32) mmol/L Anion Gap 22.8 H (5.0-14.0) mmol/L BUN 18 D (7-18) mg/dL Creatinine 0.7 (0.6-1.0) mg/dL Est Cr Clr Drug Dosing 65.37 mL/min Estimated GFR (MDRD) > 60 (>60) Glucose 83 (74-106) mg/dL Calcium 8.8 (8.5-10.1) mg/dL Total Bilirubin 0.9 (0.2-1.0) mg/dL Direct Bilirubin (0.0-0.2) mg/dL Indirect Bilirubin AST 22 (15-37) U/L ALT 26 (12-78) U/L Alkaline Phosphatase 82 (46-116) U/L Total Protein 7.9 (6.4-8.2) g/dL Albumin 4.2 (3.4-5.0) g/dL Globulin 3.7 H (2.3-3.5) g/dL Albumin/Globulin Ratio 1.1 L (1.2-2.2) Lipase 263 (73-393) U/L Urine Color (YELLOW) Urine Appearance (CLEAR) Urine pH (5.0-8.0) Ur Specific [place] (1.008-1.030) Urine Protein (NEGATIVE) mg/dL Urine Glucose (UA) (NEGATIVE) mg/dL Urine Ketones (NEGATIVE) mg/dL Urine Occult Blood (NEGATIVE) Urine Nitrite (NEGATIVE) Urine Bilirubin (NEGATIVE) Urine Urobilinogen (0.2-1.0) EU/dL Ur Leukocyte Esterase (NEGATIVE) Urine RBC (0-5) Urine WBC (0-5) Ur Epithelial Cells Amorphous Sediment Urine Bacteria Urine Mucus Salicylates 0.9 L (2.0-20.0) mg/dL Urine Opiates Screen (NEGATIVE) Ur Oxycodone Screen (NEGATIVE) Urine Methadone Screen (NEGATIVE) Ur Propoxyphene Screen (NEGATIVE) Acetaminophen 2.7 L (10.0-30.0) ug/mL Ur Barbiturates Screen (NEGATIVE) Ur Tricyclics Screen (NEGATIVE) Ur Phencyclidine Scrn (NEGATIVE) Ur Amphetamine Screen (NEGATIVE) U Methamphetamines Scrn (NEGATIVE) Urine MDMA Screen (NEGATIVE) U Benzodiazepines Scrn (NEGATIVE) U Cocaine Metab Screen (NEGATIVE) U Marijuana (THC) Screen (NEGATIVE) Ethyl Alcohol 458 mg/dL 11/07/18 11/07/18 11/07/18 Range/Units 11:24 11:24 17:00 WBC (4.5-11.0) K/uL RBC (3.30-5.50) M/uL Hgb (12.0-15.0) g/dL Hct (36.0-48.0) % MCV (80-98) fL MCH (27-31) pg MCHC (32-36) % Plt Count (150-400) K/uL PT 10.4 (9.5-12.0) sec INR 0.96 (0.80-1.20) Sodium (140-148) mmol/L Potassium (3.6-5.2) mmol/L Chloride (100-108) mmol/L Carbon Dioxide (21-32) mmol/L Anion Gap (5.0-14.0) mmol/L BUN (7-18) mg/dL Creatinine (0.6-1.0) mg/dL Est Cr Clr Drug Dosing mL/min Estimated GFR (MDRD) (>60) Glucose (74-106) mg/dL Calcium (8.5-10.1) mg/dL Total Bilirubin (0.2-1.0) mg/dL Direct Bilirubin (0.0-0.2) mg/dL Indirect Bilirubin AST (15-37) U/L ALT (12-78) U/L Alkaline Phosphatase (46-116) U/L Total Protein (6.4-8.2) g/dL Albumin (3.4-5.0) g/dL Globulin (2.3-3.5) g/dL Albumin/Globulin Ratio (1.2-2.2) Lipase (73-393) U/L Urine Color Yellow (YELLOW) Urine Appearance Clear (CLEAR) Urine pH 5.5 (5.0-8.0) Ur Specific [place] 1.025 (1.008-1.030) Urine Protein Negative (NEGATIVE) mg/dL Urine Glucose (UA) Negative (NEGATIVE) mg/dL Urine Ketones 15 H (NEGATIVE) mg/dL Urine Occult Blood Negative (NEGATIVE) Urine Nitrite Negative (NEGATIVE) Urine Bilirubin Negative (NEGATIVE) Urine Urobilinogen 0.2 (0.2-1.0) EU/dL Ur Leukocyte Esterase Negative (NEGATIVE) Urine RBC Not seen (0-5) Urine WBC Not seen (0-5) Ur Epithelial Cells Not seen Amorphous Sediment Rare Urine Bacteria Not seen Urine Mucus Not seen Salicylates (2.0-20.0) mg/dL Urine Opiates Screen Negative (NEGATIVE) Ur Oxycodone Screen Presumptive positive H (NEGATIVE) Urine Methadone Screen Negative (NEGATIVE) Ur Propoxyphene Screen Negative (NEGATIVE) Acetaminophen (10.0-30.0) ug/mL Ur Barbiturates Screen Negative (NEGATIVE) Ur Tricyclics Screen Presumptive positive H (NEGATIVE) Ur Phencyclidine Scrn Negative (NEGATIVE) Ur Amphetamine Screen Negative (NEGATIVE) U Methamphetamines Scrn Negative (NEGATIVE) Urine MDMA Screen Negative (NEGATIVE) U Benzodiazepines Scrn Negative (NEGATIVE) U Cocaine Metab Screen Negative (NEGATIVE) U Marijuana (THC) Screen Negative (NEGATIVE) Ethyl Alcohol mg/dL 11/07/18 11/07/1819 Range/Units 17:00 17:00 05:06 WBC 6.9 (4.5-11.0) K/uL RBC 3.71 (3.30-5.50) M/uL Hgb 11.7 L D (12.0-15.0) g/dL Hct 35.6 L (36.0-48.0) % MCV 96 (80-98) fL MCH 32 H (27-31) pg MCHC 33 (32-36) % Plt Count 201 (150-400) K/uL PT (9.5-12.0) sec INR (0.80-1.20) Sodium (140-148) mmol/L Potassium (3.6-5.2) mmol/L Chloride (100-108) mmol/L Carbon Dioxide (21-32) mmol/L Anion Gap (5.0-14.0) mmol/L BUN (7-18) mg/dL Creatinine (0.6-1.0) mg/dL Est Cr Clr Drug Dosing mL/min Estimated GFR (MDRD) (>60) Glucose (74-106) mg/dL Calcium (8.5-10.1) mg/dL Total Bilirubin 0.7 (0.2-1.0) mg/dL Direct Bilirubin 0.22 H (0.0-0.2) mg/dL Indirect Bilirubin 0.48 AST 27 (15-37) U/L ALT 26 (12-78) U/L Alkaline Phosphatase 75 (46-116) U/L Total Protein 7.0 (6.4-8.2) g/dL Albumin 3.7 (3.4-5.0) g/dL Globulin 3.3 (2.3-3.5) g/dL Albumin/Globulin Ratio 1.1 L (1.2-2.2) Lipase (73-393) U/L Urine Color (YELLOW) Urine Appearance (CLEAR) Urine pH (5.0-8.0) Ur Specific [place] (1.008-1.030) Urine Protein (NEGATIVE) mg/dL Urine Glucose (UA) (NEGATIVE) mg/dL Urine Ketones (NEGATIVE) mg/dL Urine Occult Blood (NEGATIVE) Urine Nitrite (NEGATIVE) Urine Bilirubin (NEGATIVE) Urine Urobilinogen (0.2-1.0) EU/dL Ur Leukocyte Esterase (NEGATIVE) Urine RBC (0-5) Urine WBC (0-5) Ur Epithelial Cells Amorphous Sediment Urine Bacteria Urine Mucus Salicylates 1.0 L (2.0-20.0) mg/dL Urine Opiates Screen (NEGATIVE) Ur Oxycodone Screen (NEGATIVE) Urine Methadone Screen (NEGATIVE) Ur Propoxyphene Screen (NEGATIVE) Acetaminophen 1.4 L (10.0-30.0) ug/mL Ur Barbiturates Screen (NEGATIVE) Ur Tricyclics Screen (NEGATIVE) Ur Phencyclidine Scrn (NEGATIVE) Ur Amphetamine Screen (NEGATIVE) U Methamphetamines Scrn (NEGATIVE) Urine MDMA Screen (NEGATIVE) U Benzodiazepines Scrn (NEGATIVE) U Cocaine Metab Screen (NEGATIVE) U Marijuana (THC) Screen (NEGATIVE) Ethyl Alcohol mg/dL 11/08/18 Range/Units 05:06 WBC (4.5-11.0) K/uL RBC (3.30-5.50) M/uL Hgb (12.0-15.0) g/dL Hct (36.0-48.0) % MCV (80-98) fL MCH (27-31) pg MCHC (32-36) % Plt Count (150-400) K/uL PT (9.5-12.0) sec INR (0.80-1.20) Sodium 142 (140-148) mmol/L Potassium 3.7 (3.6-5.2) mmol/L Chloride 110 H (100-108) mmol/L Carbon Dioxide 21 (21-32) mmol/L Anion Gap 14.7 H (5.0-14.0) mmol/L BUN 20 H (7-18) mg/dL Creatinine 0.7 (0.6-1.0) mg/dL Est Cr Clr Drug Dosing 65.30 mL/min Estimated GFR (MDRD) > 60 (>60) Glucose 100 (74-106) mg/dL Calcium 8.2 L (8.5-10.1) mg/dL Total Bilirubin (0.2-1.0) mg/dL Direct Bilirubin (0.0-0.2) mg/dL Indirect Bilirubin AST (15-37) U/L ALT (12-78) U/L Alkaline Phosphatase (46-116) U/L Total Protein (6.4-8.2) g/dL Albumin (3.4-5.0) g/dL Globulin (2.3-3.5) g/dL Albumin/Globulin Ratio (1.2-2.2) Lipase (73-393) U/L Urine Color (YELLOW) Urine Appearance (CLEAR) Urine pH (5.0-8.0) Ur Specific [place] (1.008-1.030) Urine Protein (NEGATIVE) mg/dL Urine Glucose (UA) (NEGATIVE) mg/dL Urine Ketones (NEGATIVE) mg/dL Urine Occult Blood (NEGATIVE) Urine Nitrite (NEGATIVE) Urine Bilirubin (NEGATIVE) Urine Urobilinogen (0.2-1.0) EU/dL Ur Leukocyte Esterase (NEGATIVE) Urine RBC (0-5) Urine WBC (0-5) Ur Epithelial Cells Amorphous Sediment Urine Bacteria Urine Mucus Salicylates (2.0-20.0) mg/dL Urine Opiates Screen (NEGATIVE) Ur Oxycodone Screen (NEGATIVE) Urine Methadone Screen (NEGATIVE) Ur Propoxyphene Screen (NEGATIVE) Acetaminophen (10.0-30.0) ug/mL Ur Barbiturates Screen (NEGATIVE) Ur Tricyclics Screen (NEGATIVE) Ur Phencyclidine Scrn (NEGATIVE) Ur Amphetamine Screen (NEGATIVE) U Methamphetamines Scrn (NEGATIVE) Urine MDMA Screen (NEGATIVE) U Benzodiazepines Scrn (NEGATIVE) U Cocaine Metab Screen (NEGATIVE) U Marijuana (THC) Screen (NEGATIVE) Ethyl Alcohol mg/dL Med Orders - Current: Current Medications Acetaminophen (Tylenol) 650 mg PO Q4H PRN PRN Reason: Pain (Mild 1-3)/fever Folic Acid (Folic Acid) 1 mg PO DAILY [facility] Last Admin: 11/08/18 08:32 Dose: 1 mg Gabapentin (Neurontin) 400 mg PO TID [facility] Last Admin: 11/08/18 08:32 Dose: 400 mg Ibuprofen (Motrin) 600 mg PO Q6H PRN PRN Reason: Pain/Fever Lorazepam (Ativan) 0 mg IV ASDIRECTED [facility]; Protocol Lorazepam (Ativan) 0 mg PO ASDIRECTED [facility]; Protocol Last Admin: 11/08/18 01:49 Dose: 1 mg Magnesium Hydroxide (Milk Of Magnesia) 30 ml PO Q12H PRN PRN Reason: Constipation Melatonin (Melatonin) 9 mg PO BEDTIME [facility] Last Admin: 11/07/18 20:28 Dose: 9 mg Ondansetron HCl (Zofran Odt) 4 mg PO Q6H PRN PRN Reason: Nausea able to take PO Ondansetron HCl (Zofran) 4 mg IV Q6H PRN PRN Reason: Nausea/Vomiting Senna/Docusate Sodium (Senna Plus) 1 tab PO BID PRN PRN Reason: Constipation Thiamine HCl (Vitamin B-1) 100 mg PO DAILY [facility] Last Admin: 11/08/18 08:32 Dose: 100 mg Discontinued Medications Sodium Chloride (Normal Saline) 1,000 mls @ 250 mls/hr IV ASDIRECTED [facility] Last Admin: 11/07/18 11:25 Dose: 250 mls/hr Potassium Chloride 20 meq/Lidocaine HCl 2 ml/ Sodium Chloride 112 mls @ 50 mls/ hr IV Q2H [facility] Stop: 11/07/18 16:59 Last Admin: 11/07/18 15:27 Dose: 50 mls/hr Sodium Chloride (Normal Saline) 1,000 mls @ 100 mls/hr IV ASDIRECTED [facility] Last Admin: 11/08/18 01:46 Dose: 100 mls/hr Potassium Chloride (Klor-Con M20) 40 meq PO ONETIME ONE Stop: 11/07/18 14:51 Last Admin: 11/07/18 15:27 Dose: 40 meq - Problem List & Annotations (1) Alcohol abuse with intoxication SNOMED Code(s): 09443949 Code(s): F10.129 - ALCOHOL ABUSE WITH INTOXICATION, UNSPECIFIED Status: Acute Current Visit: Yes (2) Major depression SNOMED Code(s): 919406330 Code(s): F32.9 - MAJOR DEPRESSIVE DISORDER, SINGLE EPISODE, UNSPECIFIED Status: Suspected Current Visit: Yes Qualifiers: Major depression recurrence: recurrent Active/Remission status: currently active Major depression episode severity: severe Psychotic features: without psychotic features Qualified Code(s): F33.2 - Major depressive disorder, recurrent severe without psychotic features (3) Hypokalemia SNOMED Code(s): 70547264 Code(s): E87.6 - HYPOKALEMIA Status: Acute Current Visit: Yes - My Orders Last 24 Hours: My Active Orders 11/07/18 14:55 Resuscitation Status Routine 11/07/18 15:52 Patient Status [ADT] Routine Antiembolic Devices [RC] .Routine Bedrest Bedside Commode [RC] ASDIRECTED CIWAA Assessment [RC] Q4H Cardiac Monitoring [RC] Q6H Intake and Output [RC] QSHIFT Notify Provider Vital Signs [RC] ASDIRECTED Notify Provider [RC] PRN Oxygen Therapy [RC] PRN VTE/DVT Education [RC] Per Unit Routine Vital Signs [RC] Q4H Acetaminophen [Tylenol] 650 mg PO Q4H PRN Docusate Sodium/Sennosides [Senna Plus] 1 tab PO BID PRN Ibuprofen [Motrin] 600 mg PO Q6H PRN LORazepam [Ativan] See Protocol IV ASDIRECTED LORazepam [Ativan] See Protocol PO ASDIRECTED Magnesium Hydroxide [Milk of Magnesia] 30 ml PO Q12H PRN Ondansetron [Zofran ODT] 4 mg PO Q6H PRN Ondansetron [Zofran] 4 mg IV Q6H PRN Seizure Precautions [OM.PC] Routine Sequential Compression Device [OM.PC] Routine 11/07/18 17:00 Folic Acid 1 mg PO DAILY Gabapentin [Neurontin] 400 mg PO TID Thiamine [Vitamin B-1] 100 mg PO DAILY 11/07/18 21:00 Melatonin 9 mg PO BEDTIME 11/07/18 Dinner Regular Diet [DIET] 11/08/18 10:09 Discontinue Telemetry Monitoring [Cardiac Monitoring Discontinue] [RC] Click to Edit - Plan Plan:: ASSESSMENT AND PLAN - Alcohol abuse with intoxication - long-standing history of use with multiple attempts at treatment. Patient continues to drink in large quantities when she is able. She continues to be intoxicated. -Supplement thiamine and folate -Hydration -Seizure precautions -CIWAA protocol -Gabapentin 400 mg 3 times a day -Reassess tomorrow when she is sober Suspected major depression - patient makes a statement saying she has hopeless and helpless. She does not admit to being suicidal at this time. Her father is concerned that the pill ingestion was an attempt at suicide but she does not endorse this currently. So far she has been elusive about the reason for her drinking but appears to be depressed. She will need to be reevaluated when she is sober. Crisis team evaluation may be considered as well. -Recheck acetaminophen, salicylate and hepatic panel labs this evening -Reassess in the morning Hypokalemia - she is receiving supplementation currently and we will recheck her labs in the morning and provide additional supplementation if needed. Maintenance issues - - DVT prophylaxis - mechanical - GI prophylaxis - not indicated - Nutrition - regular diet - Calvillo catheter - not indicated CODE STATUS - full code Admission justification - patient will be referred observation status for close monitoring, seizure precautions and reevaluation when she is sober Disposition - disposition pending at this time Primary care physician - she has received psychological care through [facility] Surendra Bain M.D.
--- NOTE | 2018-11-08 14:22 | PCM.DCSUM1 ---
Discharge Summary - Hospital Course Brief History: 58-year-old female with history of alcohol abuse and dependence who presented after being found unresponsive and very intoxicated in her apartment. She was admitted for management of alcohol intoxication and further evaluation of her mental health. Diagnosis: Stroke: No - Discharge Data Discharge Date: 11/08/18 Discharge Disposition: Home, Self-Care 01 Condition: Fair - Referral to Home Health Primary Care Physician: PCP None - Discharge Diagnosis/Problem(s) (1) Alcohol abuse with intoxication SNOMED Code(s): 56900546 ICD Code: F10.129 - ALCOHOL ABUSE WITH INTOXICATION, UNSPECIFIED Status: Acute (2) Major depression SNOMED Code(s): 298737620 ICD Code: F32.9 - MAJOR DEPRESSIVE DISORDER, SINGLE EPISODE, UNSPECIFIED Status: Suspected Qualifiers: Major depression recurrence: recurrent Active/Remission status: currently active Major depression episode severity: severe Psychotic features: without psychotic features Qualified Code(s): F33.2 - Major depressive disorder, recurrent severe without psychotic features (3) Hypokalemia SNOMED Code(s): 23231524 ICD Code: E87.6 - HYPOKALEMIA Status: Acute - Patient Summary/Data Hospital Course: Mary presented to the emergency room by ambulance after her father found her unresponsive in her apartment. There was reportedly to empty pill bottles around her when she was found and it was unclear if she had intended to harm herself with medications. Upon arrival to the emergency room she was extremely intoxicated with an alcohol level greater than 400. Her other course of the emergency room stay she did clear some but remained intoxicated though she was more conversant. In the emergency room she did not endorse that she tried to hurt herself with the medications. She was somewhat elusive with questions. We elected to admit her to the intensive care unit for overnight observation. Poison control did recommend supportive cares and repeat laboratory testing. Also noted in the emergency room was hypokalemia which was replaced. Overnight following admission there were no acute issues. The patient did not sleep well but was otherwise stable. By the morning after admission she is sober and more alert and interactive. She does not admit to feeling suicidal. She does not admit that she took any pills to harm herself. She is willing to go to treatment. She does not have an up-to-date rule 25 assessment. We had several discussions with her outpatient mental health treatment facility as well as the [facility]. Additional conversations with her mother and father. We have elected to treat this as an outpatient. She will be going home and will be staying with her parents. The [facility] will be contacting her early next week for a rule 25. Hopefully we can get her into inpatient alcohol treatment and preferably a dual diagnosis facility in the near future. - Patient Instructions Diet: Regular Diet as Tolerated Activity: As Tolerated Showering/Bathing: May Shower Notify Provider of: Increased Pain, Nausea and/or Vomiting Other/Special Instructions: You will be contacted by [facility] next week regarding an appointment for a Rule 25 - Discharge Plan *PRESCRIPTION DRUG MONITORING PROGRAM REVIEWED*: Not Applicable *COPY OF PRESCRIPTION DRUG MONITORING REPORT IN PATIENT MONICA: Not Applicable Prescriptions/Med Rec: Eszopiclone [Lunesta] 2 mg PO BEDTIME #7 tab Home Medications: Home Meds Albuterol Sulfate [Ventolin Hfa] 1 - 2 puff INH Q4H PRN 03/19/17 [History] Doxepin [SINEquan] 75 mg PO BEDTIME 03/19/17 [History] EPINEPHrine [Epinephrine] 1 mg INJECT ASDIRECTED 03/19/17 [History] Eszopiclone 2 mg PO BEDTIME 08/01/17 [History] Eszopiclone [Lunesta] 2 mg PO BEDTIME #7 tab 11/08/18 [Rx] Oxygen Therapy Mode: Room Air Referrals: PCP,None [Primary Care Provider] - (f/u as scheduled with [facility]) - Discharge Summary/Plan Comment DC Time >30 min.: Yes (50 - coordinating outpatient follow up ) - Patient Data Vitals - Most Recent: Last Vital Signs Temp 35.8 C 11/08/18 01:50 Pulse 86 11/08/18 08:00 Resp 25 H 11/08/18 08:00 BP 135/89 11/08/18 04:00 Pulse Ox 95 11/08/18 04:00 Weight - Most Recent: 58.6 kg I&O - Last 24 hours: Intake & Output 11/07/18 11/08/18 11/08/18 22:59 06:59 14:59 Intake Total 899 1364 Balance 899 1364 Lab Results - Last 24 hrs: Laboratory Results - last 24 hr 11/07/18 11/07/1811/07/19 Range/Units 17:00 17:00 17:00 WBC (4.5-11.0) K/uL RBC (3.30-5.50) M/uL Hgb (12.0-15.0) g/dL Hct (36.0-48.0) % MCV (80-98) fL MCH (27-31) pg MCHC (32-36) % Plt Count (150-400) K/uL PT 10.4 (9.5-12.0) sec INR 0.96 (0.80-1.20) Sodium (140-148) mmol/L Potassium (3.6-5.2) mmol/L Chloride (100-108) mmol/L Carbon Dioxide (21-32) mmol/L Anion Gap (5.0-14.0) mmol/L BUN (7-18) mg/dL Creatinine (0.6-1.0) mg/dL Est Cr Clr Drug Dosing mL/min Estimated GFR (MDRD) (>60) Glucose (74-106) mg/dL Calcium (8.5-10.1) mg/dL Total Bilirubin 0.7 (0.2-1.0) mg/dL Direct Bilirubin 0.22 H (0.0-0.2) mg/dL Indirect Bilirubin 0.48 AST 27 (15-37) U/L ALT 26 (12-78) U/L Alkaline Phosphatase 75 (46-116) U/L Total Protein 7.0 (6.4-8.2) g/dL Albumin 3.7 (3.4-5.0) g/dL Globulin 3.3 (2.3-3.5) g/dL Albumin/Globulin Ratio 1.1 L (1.2-2.2) Salicylates 1.0 L (2.0-20.0) mg/dL Acetaminophen 1.4 L (10.0-30.0) ug/mL 11/08/18 11/08/18 Range/Units 05:06 05:06 WBC 6.9 (4.5-11.0) K/uL RBC 3.71 (3.30-5.50) M/uL Hgb 11.7 L D (12.0-15.0) g/dL Hct 35.6 L (36.0-48.0) % MCV 96 (80-98) fL MCH 32 H (27-31) pg MCHC 33 (32-36) % Plt Count 201 (150-400) K/uL PT (9.5-12.0) sec INR (0.80-1.20) Sodium 142 (140-148) mmol/L Potassium 3.7 (3.6-5.2) mmol/L Chloride 110 H (100-108) mmol/L Carbon Dioxide 21 (21-32) mmol/L Anion Gap 14.7 H (5.0-14.0) mmol/L BUN 20 H (7-18) mg/dL Creatinine 0.7 (0.6-1.0) mg/dL Est Cr Clr Drug Dosing 65.30 mL/min Estimated GFR (MDRD) > 60 (>60) Glucose 100 (74-106) mg/dL Calcium 8.2 L (8.5-10.1) mg/dL Total Bilirubin (0.2-1.0) mg/dL Direct Bilirubin (0.0-0.2) mg/dL Indirect Bilirubin AST (15-37) U/L ALT (12-78) U/L Alkaline Phosphatase (46-116) U/L Total Protein (6.4-8.2) g/dL Albumin (3.4-5.0) g/dL Globulin (2.3-3.5) g/dL Albumin/Globulin Ratio (1.2-2.2) Salicylates (2.0-20.0) mg/dL Acetaminophen (10.0-30.0) ug/mL Med Orders - Current: Current Medications Acetaminophen (Tylenol) 650 mg PO Q4H PRN PRN Reason: Pain (Mild 1-3)/fever Folic Acid (Folic Acid) 1 mg PO DAILY [facility] Last Admin: 11/08/18 08:32 Dose: 1 mg Gabapentin (Neurontin) 400 mg PO TID [facility] Last Admin: 11/08/18 13:21 Dose: 400 mg Ibuprofen (Motrin) 600 mg PO Q6H PRN PRN Reason: Pain/Fever Lorazepam (Ativan) 0 mg IV ASDIRECTED [facility]; Protocol Lorazepam (Ativan) 0 mg PO ASDIRECTED [facility]; Protocol Last Admin: 11/08/18 01:49 Dose: 1 mg Magnesium Hydroxide (Milk Of Magnesia) 30 ml PO Q12H PRN PRN Reason: Constipation Melatonin (Melatonin) 9 mg PO BEDTIME [facility] Last Admin: 11/07/18 20:28 Dose: 9 mg Ondansetron HCl (Zofran Odt) 4 mg PO Q6H PRN PRN Reason: Nausea able to take PO Ondansetron HCl (Zofran) 4 mg IV Q6H PRN PRN Reason: Nausea/Vomiting Senna/Docusate Sodium (Senna Plus) 1 tab PO BID PRN PRN Reason: Constipation Thiamine HCl (Vitamin B-1) 100 mg PO DAILY [facility] Last Admin: 11/08/18 08:32 Dose: 100 mg Discontinued Medications Sodium Chloride (Normal Saline) 1,000 mls @ 250 mls/hr IV ASDIRECTED [facility] Last Admin: 11/07/18 11:25 Dose: 250 mls/hr Potassium Chloride 20 meq/Lidocaine HCl 2 ml/ Sodium Chloride 112 mls @ 50 mls/ hr IV Q2H [facility] Stop: 11/07/18 16:59 Last Admin: 11/07/18 15:27 Dose: 50 mls/hr Sodium Chloride (Normal Saline) 1,000 mls @ 100 mls/hr IV ASDIRECTED [facility] Last Admin: 11/08/18 01:46 Dose: 100 mls/hr Potassium Chloride (Klor-Con M20) 40 meq PO ONETIME ONE Stop: 11/07/18 14:51 Last Admin: 11/07/18 15:27 Dose: 40 meq - Exam Quality Assessment: Denies: Supplemental Oxygen General: Reports: Alert, Oriented, Cooperative, No Acute Distress Lungs: Reports: Normal Respiratory Effort GI/Abdominal Exam: Soft, No Distention Extremities: No Pedal Edema Psy/Mental Status: Reports: Alert, Normal Affect. Denies: Agitated
== END 2018-11-08 14:41 | disposition home or self-care (01) ==
LOC: JP.ED 10:13 → JP.ICU 14:52
PROVIDERS: ADMIT Internal Medicine; ATTEND Internal Medicine
DX: F10.129 Alcohol abuse with intoxication, unspecified (principal); F33.2 Major depressive disorder, recurrent severe without psychotic features; E87.6 Hypokalemia; J45.909 Unspecified asthma, uncomplicated; Y90.8 Blood alcohol level of 240 mg/100 ml or more; Z91.013 Allergy to seafood; Z91.018 Allergy to other foods; Z79.899 Other long term (current) drug therapy
CPT/HCPCS: 36415; 70450; 70486; 80048; 80053; 80076; 80305; 80320; 80329; 81001; 83690; 85027; 85610; 96360; 96361; 99285; A9270; J2001; J3480; J7030; G0480

== ENCOUNTER 2018-11-19 15:11 | Emergency (ER) | payer MEDICAID ==
--- NOTE | 2018-11-19 17:00 | EDM.PDOCBH ---
<OfficerArsalan - Last Filed: 11/19/18 16:58> ED HPI GENERAL MEDICAL PROBLEM - General Chief Complaint: Drug or Alcohol Abuse Stated Complaint: DETOX Time Seen by Provider: 11/19/18 16:58 Source of Information: Reports: Patient, Family, RN Notes Reviewed History Limitations: Reports: Intoxication - History of Present Illness INITIAL COMMENTS - FREE TEXT/NARRATIVE: 58-year-old female presents to the emergency department today requesting detoxification, their daughter has a long extensive history of alcohol abuse and dependence has been to multiple teeth treatment programs as well as multiple detoxification facilities. They have been working with the [facility] she does have a social media content specialist as well as [employer]. She has had a rule 25 done she has a bed reserved for her for treatment at [place] in [facility]. She has been intoxicated for the last 5 days after long discussion she is willing to provide blood work and urine and do detoxification - Related Data Allergies Allergy/AdvReac Type Severity Reaction Status Date / Time Fish Containing Products Allergy Anaphylactic Verified 11/07/18 10:24 Shock latex Allergy Rash Verified 11/19/18 15:37 nut - unspecified Allergy Anaphylactic Verified 11/07/18 10:24 Shock Home Meds: Home Meds Albuterol Sulfate [Ventolin Hfa] 1 - 2 puff INH Q4H PRN 03/19/17 [History] Doxepin [SINEquan] 75 mg PO BEDTIME 03/19/17 [History] EPINEPHrine [Epinephrine] 1 mg INJECT ASDIRECTED 03/19/17 [History] Eszopiclone [Lunesta] 2 mg PO BEDTIME #7 tab 11/08/18 [Rx] Cyanocobalamin (Vitamin B-12) [Vitamin B-12] 1,000 mcg SL DAILY 11/19/18 [ History] Past Medical History HEENT History: Reports: Impaired Vision Respiratory History: Reports: Asthma 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: Neurological History: Reports: Seizure Other Neuro History: with ETOH withdrawl Psychiatric History: Reports: Addiction, Anxiety, Depression Other Psychiatric History: ADJUSTMENT DISORDER Dermatologic History: Reports: Eczema - Infectious Disease History Infectious Disease History: Reports: Chicken Pox - Past Surgical History HEENT Surgical History: Reports: Tonsillectomy Social & Family History - Tobacco Use Smoking Status *Q: Current Every Day Smoker Years of Tobacco use: 30 Packs/Tins Daily: 0.4 - Caffeine Use Caffeine Use: Reports: None - Alcohol Use Days Per Week of Alcohol Use: 7 Number of Drinks Per Day: 10 Total Drinks Per Week: 70 - Recreational Drug Use Recreational Drug Use: No ED ROS GENERAL - Review of Systems Review Of Systems: See Below Respiratory: Reports: No Symptoms Cardiovascular: Reports: No Symptoms GI/Abdominal: Reports: No Symptoms Psychiatric: Denies: Homicidal Ideation, Suicidal Ideation ED EXAM, BEHAVIORAL HEALTH - Physical Exam Exam: See Below Exam Limited By: Intoxication General Appearance: Alert, No Apparent Distress Respiratory/Chest: No Respiratory Distress Psychiatric: Alert, Oriented, Restless, Poor Eye Contact. No: Homicidal Thoughts, Suicidal Plan, Suicidal Thoughts COURSE, BEHAVIORAL HEALTH COMP - Course Vital Signs: Last Vital Signs Temp 36.3 C 11/19/18 15:41 Pulse 114 H 11/19/18 18:40 Resp 14 11/19/18 18:40 BP 130/80 11/19/18 18:40 Pulse Ox 95 11/19/18 18:40 Orders, Labs, Meds: Laboratory Tests 11/19/18 11/19/18 11/19/18 Range/Units 17:09 17:10 17:10 WBC 7.3 (4.5-11.0) K/uL RBC 4.49 (3.30-5.50) M/uL Hgb 14.4 D (12.0-15.0) g/dL Hct 42.4 (36.0-48.0) % MCV 94 (80-98) fL MCH 32 H (27-31) pg MCHC 34 (32-36) % Plt Count 314 (150-400) K/uL Neut % (Auto) 57 (36-66) % Lymph % (Auto) 31 (24-44) % Creek % (Auto) 7 H (2-6) % Eos % (Auto) 4 (2-4) % Baso % (Auto) 1 (0-1) % Sodium 141 (140-148) mmol/L Potassium 4.0 (3.6-5.2) mmol/L Chloride 100 (100-108) mmol/L Carbon Dioxide 25 (21-32) mmol/L Anion Gap 16.5 H (5.0-14.0) mmol/L BUN 9 D (7-18) mg/dL Creatinine 0.7 (0.6-1.0) mg/dL Est Cr Clr Drug Dosing 65.30 mL/min Estimated GFR (MDRD) > 60 (>60) Glucose 93 (74-106) mg/dL Calcium 8.6 (8.5-10.1) mg/dL Total Bilirubin 0.6 (0.2-1.0) mg/dL AST 30 (15-37) U/L ALT 30 (12-78) U/L Alkaline Phosphatase 97 (46-116) U/L Total Protein 8.2 (6.4-8.2) g/dL Albumin 4.1 (3.4-5.0) g/dL Globulin 4.1 H (2.3-3.5) g/dL Albumin/Globulin Ratio 1.0 L (1.2-2.2) Urine Opiates Screen Negative (NEGATIVE) Ur Oxycodone Screen Negative (NEGATIVE) Urine Methadone Screen Negative (NEGATIVE) Ur Propoxyphene Screen Negative (NEGATIVE) Ur Barbiturates Screen Negative (NEGATIVE) Ur Tricyclics Screen Presumptive positive H (NEGATIVE) Ur Phencyclidine Scrn Negative (NEGATIVE) Ur Amphetamine Screen Negative (NEGATIVE) U Methamphetamines Scrn Negative (NEGATIVE) Urine MDMA Screen Negative (NEGATIVE) U Benzodiazepines Scrn Negative (NEGATIVE) U Cocaine Metab Screen Negative (NEGATIVE) U Marijuana (THC) Screen Negative (NEGATIVE) Ethyl Alcohol mg/dL 11/19/18 Range/Units 17:10 WBC (4.5-11.0) K/uL RBC (3.30-5.50) M/uL Hgb (12.0-15.0) g/dL Hct (36.0-48.0) % MCV (80-98) fL MCH (27-31) pg MCHC (32-36) % Plt Count (150-400) K/uL Neut % (Auto) (36-66) % Lymph % (Auto) (24-44) % Creek % (Auto) (2-6) % Eos % (Auto) (2-4) % Baso % (Auto) (0-1) % Sodium (140-148) mmol/L Potassium (3.6-5.2) mmol/L Chloride (100-108) mmol/L Carbon Dioxide (21-32) mmol/L Anion Gap (5.0-14.0) mmol/L BUN (7-18) mg/dL Creatinine (0.6-1.0) mg/dL Est Cr Clr Drug Dosing mL/min Estimated GFR (MDRD) (>60) Glucose (74-106) mg/dL Calcium (8.5-10.1) mg/dL Total Bilirubin (0.2-1.0) mg/dL AST (15-37) U/L ALT (12-78) U/L Alkaline Phosphatase (46-116) U/L Total Protein (6.4-8.2) g/dL Albumin (3.4-5.0) g/dL Globulin (2.3-3.5) g/dL Albumin/Globulin Ratio (1.2-2.2) Urine Opiates Screen (NEGATIVE) Ur Oxycodone Screen (NEGATIVE) Urine Methadone Screen (NEGATIVE) Ur Propoxyphene Screen (NEGATIVE) Ur Barbiturates Screen (NEGATIVE) Ur Tricyclics Screen (NEGATIVE) Ur Phencyclidine Scrn (NEGATIVE) Ur Amphetamine Screen (NEGATIVE) U Methamphetamines Scrn (NEGATIVE) Urine MDMA Screen (NEGATIVE) U Benzodiazepines Scrn (NEGATIVE) U Cocaine Metab Screen (NEGATIVE) U Marijuana (THC) Screen (NEGATIVE) Ethyl Alcohol 249 mg/dL Medications Discontinued Medications Generic Name Dose Route Start Last Admin Trade Name Freq PRN Reason Stop Dose Admin Lorazepam 1 mg 11/19/18 18:08 11/19/18 18:13 Ativan PO 11/19/18 18:09 1 mg ONETIME ONE Administration Departure - Departure Disposition: DC/Tfer to Other 70 Clinical Impression: Alcohol abuse with intoxication Alcohol withdrawal syndrome Qualifiers: Complication of substance-induced condition: uncomplicated Qualified Code(s): F10.230 - Alcohol dependence with withdrawal, uncomplicated - Discharge Information Referrals: PCP,None [Primary Care Provider] - Forms: ED Department Discharge Additional Instructions: To [facility] for detox <Michael Couch G - Last Filed: 11/19/18 18:53> Departure - Departure Time of Disposition: 18:52 Condition: Fair - Discharge Information *PRESCRIPTION DRUG MONITORING PROGRAM REVIEWED*: No *COPY OF PRESCRIPTION DRUG MONITORING REPORT IN PATIENT MONICA: No
[2018-11-19] MEDS ORDERED: LORazepam 1 MG Tab PO ONE (18:08)
== END 2018-11-19 19:19 | disposition other institution (70) ==
LOC: JP.ED 15:11
DX: F10.230 Alcohol dependence with withdrawal, uncomplicated (principal); F10.229 Alcohol dependence with intoxication, unspecified; Y90.8 Blood alcohol level of 240 mg/100 ml or more; J45.909 Unspecified asthma, uncomplicated; F41.9 Anxiety disorder, unspecified; F32.9 Major depressive disorder, single episode, unspecified; F17.210 Nicotine dependence, cigarettes, uncomplicated; Z91.018 Allergy to other foods; Z91.040 Latex allergy status; Z91.013 Allergy to seafood
CPT/HCPCS: 36415; 80053; 80305; 80320; 85025; 99285; A9270; G0480

== ENCOUNTER 2019-04-02 10:16 | Inpatient (IN) | payer MEDICAID ==
--- NOTE | 2019-04-02 11:06 | EDM.PDOCBH ---
ED HPI GENERAL MEDICAL PROBLEM - General Chief Complaint: Drug or Alcohol Abuse Stated Complaint: DRINKING FOR PAST FEW DAYS Time Seen by Provider: 04/02/19 10:50 Source of Information: Reports: Family, Old Records, Other (social science instructor) History Limitations: Reports: Uncooperative - History of Present Illness INITIAL COMMENTS - FREE TEXT/NARRATIVE: 58 yo female chronic alcoholic is brought in by her father and social science instructor for medical clearance with a request that she be sent to [facility] on a 72 hr hold. They are ultimately hoping for a [facility] commitment for her ongoing abuse issues. Has been noncompliant with her medications. Is currently living on her own. Has expressed suicidal ideations recently. Onset: Unknown/Unsure Duration: Chronic, Waxing/Waning Location: Reports: Generalized Quality: Reports: Other (no reported pain) Severity: Severe Improves with: Reports: Other (alcohol abstinence) Worsens with: Reports: Other (alcohol use) Context: Reports: Other (see HPI) Associated Symptoms: Reports: Other (suicidal ideations ) Treatments FLOORS BUFFER: Reports: Other (see below) (none) - Related Data Allergies Allergy/AdvReac Type Severity Reaction Status Date / Time Fish Containing Products Allergy Anaphylactic Verified 04/02/19 10:36 Shock latex Allergy Rash Verified 04/02/19 10:36 nut - unspecified Allergy Anaphylactic Verified 04/02/19 10:36 Shock Home Meds: Home Meds Albuterol Sulfate [Ventolin Hfa] 1 - 2 puff INH Q4H PRN 03/19/17 [History] Doxepin [SINEquan] 75 mg PO BEDTIME 03/19/17 [History] EPINEPHrine [Epinephrine] 1 mg INJECT ASDIRECTED 03/19/17 [History] Eszopiclone [Lunesta] 2 mg PO BEDTIME #7 tab 11/08/18 [Rx] Cyanocobalamin (Vitamin B-12) [Vitamin B-12] 1,000 mcg SL DAILY 11/19/18 [ History] QUEtiapine [SEROquel] 25 mg PO BEDTIME 04/02/19 [History] Vilazodone [Viibryd] 20 mg PO DAILY 04/02/19 [History] Past Medical History HEENT History: Reports: Impaired Vision Respiratory History: Reports: Asthma 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: Neurological History: Reports: Seizure Other Neuro History: with ETOH withdrawl Psychiatric History: Reports: Addiction, Anxiety, Depression Other Psychiatric History: ADJUSTMENT DISORDER Dermatologic History: Reports: Eczema - Infectious Disease History Infectious Disease History: Reports: Chicken Pox - Past Surgical History HEENT Surgical History: Reports: Tonsillectomy Social & Family History - Tobacco Use Smoking Status *Q: Current Every Day Smoker Years of Tobacco use: 15 Packs/Tins Daily: 0.5 - Caffeine Use Caffeine Use: Reports: Coffee - Recreational Drug Use Recreational Drug Use: No ED ROS GENERAL - Review of Systems Review Of Systems: See Below (refuses to interact with examiner) Constitutional: Reports: No Symptoms HEENT: Reports: No Symptoms Respiratory: Reports: No Symptoms Cardiovascular: Reports: No Symptoms GI/Abdominal: Reports: No Symptoms : Reports: No Symptoms Musculoskeletal: Reports: No Symptoms Skin: Reports: No Symptoms Neurological: Reports: No Symptoms Psychiatric: Reports: Other (denies suicidal ideation in the ED, but told others before her arrival that she had these thoughts. ) ED EXAM, BEHAVIORAL HEALTH - Physical Exam Exam: See Below Exam Limited By: No Limitations General Appearance: Alert, WD/WN, No Apparent Distress, Other (disheveled) Eye Exam: Bilateral Eye: Normal Inspection Ears: Normal External Exam, Normal Canal, Hearing Grossly Normal, Normal TMs Nose: Normal Inspection, No Blood Throat/Mouth: Normal Inspection, Normal Oropharynx, Normal Voice, No Airway Compromise Head: Atraumatic, Normocephalic, Other (chin bruising noted) Neck: Normal Inspection Respiratory/Chest: No Respiratory Distress, Lungs Clear, Normal Breath Sounds, No Accessory Muscle Use Cardiovascular: Regular Rate, Rhythm GI/Abdominal: Normal Bowel Sounds, Soft, Non-Tender, No Distention Back Exam: Normal Inspection. No: CVA Tenderness (R), CVA Tenderness (L) Extremities: Normal Inspection, Normal Range of Motion, Non-Tender, No Pedal Edema Neurological: Alert, Normal Mood/Affect, CN II-XII Intact, Normal Cognition, No Motor/Sensory Deficits, Oriented x 3 Psychiatric: Alert, Depressed Mood, Non-Communicative, Poor Eye Contact, Uncooperative Skin Exam: Warm, Dry, Intact, Normal color, No rash COURSE, BEHAVIORAL HEALTH COMP - Course Vital Signs: Last Vital Signs Temp 36.2 C 04/02/19 10:30 Pulse 111 H 04/02/19 10:30 Resp 18 04/02/19 10:30 BP 140/80 04/02/19 10:30 Pulse Ox 97 04/02/19 10:30 Orders, Labs, Meds: Active Orders 24 hr Category Date Time Status Sodium Chloride 0.9% [Normal Saline] 1,000 ml Med 04/02/19 13:40 Active IV .BOLUS Medication Orders Sodium Chloride (Normal Saline) 1,000 mls @ 1,000 mls/hr IV .BOLUS ONE Stop: 04/02/19 14:39 Laboratory Tests 04/02/19 04/02/19 04/02/19 Range/Units 11:34 11:34 12:04 WBC 6.8 (4.5-11.0) K/uL RBC 5.20 (3.30-5.50) M/uL Hgb 15.9 H (12.0-15.0) g/dL Hct 47.1 (36.0-48.0) % MCV 91 (80-98) fL MCH 31 (27-31) pg MCHC 34 (32-36) % Plt Count 264 (150-400) K/uL VBG pH (7.350-7.450) Sodium (140-148) mmol/L Potassium (3.6-5.2) mmol/L Chloride (100-108) mmol/L Carbon Dioxide (21-32) mmol/L Anion Gap (5.0-14.0) mmol/L BUN (7-18) mg/dL Creatinine (0.6-1.0) mg/dL Est Cr Clr Drug Dosing mL/min Estimated GFR (MDRD) (>60) Glucose (74-106) mg/dL Lactic Acid (0.4-2.0) mmol/L Calcium (8.5-10.1) mg/dL Total Bilirubin (0.2-1.0) mg/dL AST (15-37) U/L ALT (12-78) U/L Alkaline Phosphatase (46-116) U/L Total Protein (6.4-8.2) g/dL Albumin (3.4-5.0) g/dL Globulin (2.3-3.5) g/dL Albumin/Globulin Ratio (1.2-2.2) TSH, Ultra Sensitive (0.358-3.740) uIU/mL Urine Color Yellow (YELLOW) Urine Appearance Clear (CLEAR) Urine pH 5.5 (5.0-8.0) Ur Specific [place] 1.010 (1.008-1.030) Urine Protein Negative (NEGATIVE) mg/dL Urine Glucose (UA) Negative (NEGATIVE) mg/dL Urine Ketones 15 H (NEGATIVE) mg/dL Urine Occult Blood Trace-intact H (NEGATIVE) Urine Nitrite Negative (NEGATIVE) Urine Bilirubin Negative (NEGATIVE) Urine Urobilinogen 0.2 (0.2-1.0) EU/dL Ur Leukocyte Esterase Negative (NEGATIVE) Urine RBC 0-5 (0-5) Urine WBC Not seen (0-5) Ur Epithelial Cells Not seen Amorphous Sediment Rare Urine Bacteria Not seen Urine Mucus Not seen Salicylates (2.0-20.0) mg/dL Urine Opiates Screen Negative (NEGATIVE) Ur Oxycodone Screen Negative (NEGATIVE) Urine Methadone Screen Negative (NEGATIVE) Ur Propoxyphene Screen Negative (NEGATIVE) Acetaminophen (10.0-30.0) ug/mL Ur Barbiturates Screen Negative (NEGATIVE) Ur Tricyclics Screen Negative (NEGATIVE) Ur Phencyclidine Scrn Negative (NEGATIVE) Ur Amphetamine Screen Negative (NEGATIVE) U Methamphetamines Scrn Negative (NEGATIVE) Urine MDMA Screen Negative (NEGATIVE) U Benzodiazepines Scrn Negative (NEGATIVE) U Cocaine Metab Screen Negative (NEGATIVE) U Marijuana (THC) Screen Negative (NEGATIVE) Ethyl Alcohol mg/dL 04/02/19 04/02/19 04/02/19 Range/Units 12:04 12:04 12:04 WBC (4.5-11.0) K/uL RBC (3.30-5.50) M/uL Hgb (12.0-15.0) g/dL Hct (36.0-48.0) % MCV (80-98) fL MCH (27-31) pg MCHC (32-36) % Plt Count (150-400) K/uL VBG pH (7.350-7.450) Sodium 138 L (140-148) mmol/L Potassium 4.0 (3.6-5.2) mmol/L Chloride 96 L (100-108) mmol/L Carbon Dioxide 20 L (21-32) mmol/L Anion Gap 26.0 H (5.0-14.0) mmol/L BUN 15 D (7-18) mg/dL Creatinine 0.9 (0.6-1.0) mg/dL Est Cr Clr Drug Dosing 50.79 mL/min Estimated GFR (MDRD) > 60 (>60) Glucose 63 L (74-106) mg/dL Lactic Acid (0.4-2.0) mmol/L Calcium 8.7 (8.5-10.1) mg/dL Total Bilirubin 0.6 (0.2-1.0) mg/dL AST 33 (15-37) U/L ALT 38 (12-78) U/L Alkaline Phosphatase 82 (46-116) U/L Total Protein 8.6 H (6.4-8.2) g/dL Albumin 4.6 (3.4-5.0) g/dL Globulin 4.0 H (2.3-3.5) g/dL Albumin/Globulin Ratio 1.2 (1.2-2.2) TSH, Ultra Sensitive 2.610 (0.358-3.740) uIU/mL Urine Color (YELLOW) Urine Appearance (CLEAR) Urine pH (5.0-8.0) Ur Specific [place] (1.008-1.030) Urine Protein (NEGATIVE) mg/dL Urine Glucose (UA) (NEGATIVE) mg/dL Urine Ketones (NEGATIVE) mg/dL Urine Occult Blood (NEGATIVE) Urine Nitrite (NEGATIVE) Urine Bilirubin (NEGATIVE) Urine Urobilinogen (0.2-1.0) EU/dL Ur Leukocyte Esterase (NEGATIVE) Urine RBC (0-5) Urine WBC (0-5) Ur Epithelial Cells Amorphous Sediment Urine Bacteria Urine Mucus Salicylates (2.0-20.0) mg/dL Urine Opiates Screen (NEGATIVE) Ur Oxycodone Screen (NEGATIVE) Urine Methadone Screen (NEGATIVE) Ur Propoxyphene Screen (NEGATIVE) Acetaminophen 0.0 L (10.0-30.0) ug/mL Ur Barbiturates Screen (NEGATIVE) Ur Tricyclics Screen (NEGATIVE) Ur Phencyclidine Scrn (NEGATIVE) Ur Amphetamine Screen (NEGATIVE) U Methamphetamines Scrn (NEGATIVE) Urine MDMA Screen (NEGATIVE) U Benzodiazepines Scrn (NEGATIVE) U Cocaine Metab Screen (NEGATIVE) U Marijuana (THC) Screen (NEGATIVE) Ethyl Alcohol 290 mg/dL 04/02/19 04/02/19 04/02/19 Range/Units 12:04 12:36 12:37 WBC (4.5-11.0) K/uL RBC (3.30-5.50) M/uL Hgb (12.0-15.0) g/dL Hct (36.0-48.0) % MCV (80-98) fL MCH (27-31) pg MCHC (32-36) % Plt Count (150-400) K/uL VBG pH 7.353 (7.350-7.450) Sodium (140-148) mmol/L Potassium (3.6-5.2) mmol/L Chloride (100-108) mmol/L Carbon Dioxide (21-32) mmol/L Anion Gap (5.0-14.0) mmol/L BUN (7-18) mg/dL Creatinine (0.6-1.0) mg/dL Est Cr Clr Drug Dosing mL/min Estimated GFR (MDRD) (>60) Glucose (74-106) mg/dL Lactic Acid 7.0 H (0.4-2.0) mmol/L Calcium (8.5-10.1) mg/dL Total Bilirubin (0.2-1.0) mg/dL AST (15-37) U/L ALT (12-78) U/L Alkaline Phosphatase (46-116) U/L Total Protein (6.4-8.2) g/dL Albumin (3.4-5.0) g/dL Globulin (2.3-3.5) g/dL Albumin/Globulin Ratio (1.2-2.2) TSH, Ultra Sensitive (0.358-3.740) uIU/mL Urine Color (YELLOW) Urine Appearance (CLEAR) Urine pH (5.0-8.0) Ur Specific [place] (1.008-1.030) Urine Protein (NEGATIVE) mg/dL Urine Glucose (UA) (NEGATIVE) mg/dL Urine Ketones (NEGATIVE) mg/dL Urine Occult Blood (NEGATIVE) Urine Nitrite (NEGATIVE) Urine Bilirubin (NEGATIVE) Urine Urobilinogen (0.2-1.0) EU/dL Ur Leukocyte Esterase (NEGATIVE) Urine RBC (0-5) Urine WBC (0-5) Ur Epithelial Cells Amorphous Sediment Urine Bacteria Urine Mucus Salicylates 3.7 (2.0-20.0) mg/dL Urine Opiates Screen (NEGATIVE) Ur Oxycodone Screen (NEGATIVE) Urine Methadone Screen (NEGATIVE) Ur Propoxyphene Screen (NEGATIVE) Acetaminophen (10.0-30.0) ug/mL Ur Barbiturates Screen (NEGATIVE) Ur Tricyclics Screen (NEGATIVE) Ur Phencyclidine Scrn (NEGATIVE) Ur Amphetamine Screen (NEGATIVE) U Methamphetamines Scrn (NEGATIVE) Urine MDMA Screen (NEGATIVE) U Benzodiazepines Scrn (NEGATIVE) U Cocaine Metab Screen (NEGATIVE) U Marijuana (THC) Screen (NEGATIVE) Ethyl Alcohol mg/dL Medications Generic Name Dose Route Start Last Admin Trade Name Freq PRN Reason Stop Dose Admin Sodium Chloride 1,000 mls @ 1,000 mls/hr 04/02/19 13:40 Normal Saline IV 04/02/19 14:39 .BOLUS ONE Discontinued Medications Generic Name Dose Route Start Last Admin Trade Name Freq PRN Reason Stop Dose Admin Lorazepam 1 mg 04/02/19 11:16 04/02/19 11:23 Ativan PO 04/02/19 11:17 1 mg ONETIME ONE Administration Naproxen 250 mg 04/02/19 11:47 04/02/19 12:01 Naprosyn PO 04/02/19 11:48 250 mg NOW STA Administration Thiamine HCl 100 mg 04/02/19 12:46 Vitamin B-1 PO 04/02/19 12:47 ONETIME ONE Medical Clearance: 04/02/19 13:59 Called [facility] @ 1400h, will admit. Departure - Departure Time of Disposition: 14:20 Disposition: Admitted As Inpatient 66 Condition: Poor Clinical Impression: Alcoholic ketoacidosis, Chronic alcohol abuse, Medical non-compliance Alcohol intoxication Qualifiers: Complication of substance-induced condition: with unspecified complication Qualified Code(s): F10.929 - Alcohol use, unspecified with intoxication, unspecified - Discharge Information *PRESCRIPTION DRUG MONITORING PROGRAM REVIEWED*: Not Applicable *COPY OF PRESCRIPTION DRUG MONITORING REPORT IN PATIENT MONICA: Not Applicable Referrals: Milena Joe NP [Primary Care Provider] - Forms: ED Department Discharge Sepsis Event Note - Evaluation Sepsis Screening Result: No Definite Risk - Focused Exam Vital Signs: Vital Signs Temp Pulse Resp BP Pulse Ox 04/02/19 10:30 36.2 C 111 H 18 140/80 97 Date Exam was Performed: 04/02/19 Time Exam was Performed: 13:59 - My Orders Last 24 Hours: My Active Orders 04/02/19 13:40 Sodium Chloride 0.9% [Normal Saline] 1,000 ml IV .BOLUS - Assessment/Plan Last 24 Hours: My Active Orders 04/02/19 13:40 Sodium Chloride 0.9% [Normal Saline] 1,000 ml IV .BOLUS
[2019-04-02] MEDS ORDERED: LORazepam 1 MG Tab PO ONE (11:16)
[2019-04-02] MEDS ORDERED: Naproxen 250 MG Tab PO STA (11:47)
[2019-04-02] MEDS ORDERED: Thiamine 100 MG Tab PO ONE (12:46)
[2019-04-02] MEDS ORDERED: Sodium Chloride 0.9% 1,000 ML IV ONE (13:40)
--- NOTE | 2019-04-02 14:27 | PCM.HP.2 ---
H&P History of Present Illness - General Date of Service: 04/02/19 Admit Problem/Dx: Admission Diagnosis/Problem Admission Diagnosis/Problem Metabolic acidosis with increased anion gap and accumulation of organic acids Source of Information: Patient, Provider, RN Notes Reviewed History Limitations: Reports: Uncooperative - History of Present Illness Initial Comments - Free Text/Narative: Ms. Mack is a 58-year-old woman who was admitted through the emergency department after she had been found extremely intoxicated by her father. She has a known history of chronic alcohol abuse as well as depression. Family had reported ongoing heavy alcohol use, patient is very vague when questioned about her alcohol use. She is noted to have very flat affect and answers questions very briefly. She has been placed on a 72-hour hold because of recent suicidal ideation expressed to family. On evaluation for medical clearance in the emergency department is noted to have lactic acidosis with elevated anion gap and lactic acid level. There is no evidence of underlying infection or sepsis. Glucose level is within normal range and she has been hemodynamically stable, except for mild resting tachycardia, as well as afebrile. - Related Data Allergies/Adverse Reactions: Allergies Allergy/AdvReac Type Severity Reaction Status Date / Time Fish Containing Products Allergy Anaphylactic Verified 04/02/19 10:36 Shock latex Allergy Rash Verified 04/02/19 10:36 nut - unspecified Allergy Anaphylactic Verified 04/02/19 10:36 Shock Home Medications: Home Meds Albuterol Sulfate [Ventolin Hfa] 1 - 2 puff INH Q4H PRN 03/19/17 [History] Doxepin [SINEquan] 75 mg PO BEDTIME 03/19/17 [History] EPINEPHrine [Epinephrine] 1 mg INJECT ASDIRECTED 03/19/17 [History] Eszopiclone [Lunesta] 2 mg PO BEDTIME #7 tab 11/08/18 [Rx] Cyanocobalamin (Vitamin B-12) [Vitamin B-12] 1,000 mcg SL DAILY 11/19/18 [ History] QUEtiapine [SEROquel] 25 mg PO BEDTIME 04/02/19 [History] Vilazodone [Viibryd] 20 mg PO DAILY 04/02/19 [History] Past Medical History HEENT History: Reports: Impaired Vision Respiratory History: Reports: Asthma 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: Neurological History: Reports: Seizure Other Neuro History: with ETOH withdrawl Psychiatric History: Reports: Addiction, Anxiety, Depression Other Psychiatric History: ADJUSTMENT DISORDER Dermatologic History: Reports: Eczema - Infectious Disease History Infectious Disease History: Reports: Chicken Pox - Past Surgical History HEENT Surgical History: Reports: Tonsillectomy Social & Family History - Tobacco Use Smoking Status *Q: Current Every Day Smoker Years of Tobacco use: 15 Packs/Tins Daily: 0.5 - Caffeine Use Caffeine Use: Reports: Coffee - Recreational Drug Use Recreational Drug Use: No H&P Review of Systems - Review of Systems: Review Of Systems: See Below General: Reports: Malaise, Weakness. Denies: Fever, Chills HEENT: Reports: No Symptoms Pulmonary: Reports: No Symptoms Cardiovascular: Reports: No Symptoms Gastrointestinal: Reports: No Symptoms Genitourinary: Reports: No Symptoms Musculoskeletal: Reports: No Symptoms Skin: Reports: No Symptoms Psychiatric: Reports: Depression, Suicidal Ideation Neurological: Reports: No Symptoms Hematologic/Lymphatic: Reports: No Symptoms Immunologic: Reports: No Symptoms Exam - Exam Exam: See Below - Vital Signs Vital Signs: Last Vital Signs Temp 97.2 F 04/02/19 10:30 Pulse 111 H 04/02/19 10:30 Resp 18 04/02/19 10:30 BP 140/80 04/02/19 10:30 Pulse Ox 97 04/02/19 10:30 Weight: 120 lb 2.431 oz - Exam Quality Assessment: DVT Prophylaxis General: Alert, Oriented, Mild Distress. No: Cooperative HEENT: Conjunctiva Clear, Hearing Intact, Mucosa Moist & [place] Mel, Normal Nasal Septum, Posterior Pharynx Clear, Pupils Equal Neck: Supple, Trachea Midline, +2 Carotid Pulse wo Bruit Lungs: Clear to Auscultation, Normal Respiratory Effort Cardiovascular: Regular Rhythm, Normal S1, Normal S2, Tachycardia. No: Systolic Murmur, Diastolic Murmur GI/Abdominal Exam: Soft, Non-Tender, No Organomegaly, No Distention Back Exam: Normal Inspection, Full Range of Motion Extremities: Non-Tender, No Pedal Edema Skin: Warm, Dry, Intact Neurological: Cranial Nerves Intact, Strength Equal Bilateral, Normal Speech, Normal Tone, Sensation Intact. No: Focal Deficit Psychiatric: Alert, Depressed, Suicidal Ideation, Other (Flat affect). No: Normal Affect, Normal Mood - Patient Data Lab Results Last 24 hrs: Laboratory Results - last 24 hr 04/02/19 04/02/19 04/02/19 Range/Units 11:34 11:34 12:04 WBC 6.8 (4.5-11.0) K/uL RBC 5.20 (3.30-5.50) M/uL Hgb 15.9 H (12.0-15.0) g/dL Hct 47.1 (36.0-48.0) % MCV 91 (80-98) fL MCH 31 (27-31) pg MCHC 34 (32-36) % Plt Count 264 (150-400) K/uL VBG pH (7.350-7.450) Sodium (140-148) mmol/L Potassium (3.6-5.2) mmol/L Chloride (100-108) mmol/L Carbon Dioxide (21-32) mmol/L Anion Gap (5.0-14.0) mmol/L BUN (7-18) mg/dL Creatinine (0.6-1.0) mg/dL Est Cr Clr Drug Dosing mL/min Estimated GFR (MDRD) (>60) Glucose (74-106) mg/dL Lactic Acid (0.4-2.0) mmol/L Calcium (8.5-10.1) mg/dL Total Bilirubin (0.2-1.0) mg/dL AST (15-37) U/L ALT (12-78) U/L Alkaline Phosphatase (46-116) U/L Total Protein (6.4-8.2) g/dL Albumin (3.4-5.0) g/dL Globulin (2.3-3.5) g/dL Albumin/Globulin Ratio (1.2-2.2) TSH, Ultra Sensitive (0.358-3.740) uIU/mL Urine Color Yellow (YELLOW) Urine Appearance Clear (CLEAR) Urine pH 5.5 (5.0-8.0) Ur Specific [place] 1.010 (1.008-1.030) Urine Protein Negative (NEGATIVE) mg/dL Urine Glucose (UA) Negative (NEGATIVE) mg/dL Urine Ketones 15 H (NEGATIVE) mg/dL Urine Occult Blood Trace-intact H (NEGATIVE) Urine Nitrite Negative (NEGATIVE) Urine Bilirubin Negative (NEGATIVE) Urine Urobilinogen 0.2 (0.2-1.0) EU/dL Ur Leukocyte Esterase Negative (NEGATIVE) Urine RBC 0-5 (0-5) Urine WBC Not seen (0-5) Ur Epithelial Cells Not seen Amorphous Sediment Rare Urine Bacteria Not seen Urine Mucus Not seen Salicylates (2.0-20.0) mg/dL Urine Opiates Screen Negative (NEGATIVE) Ur Oxycodone Screen Negative (NEGATIVE) Urine Methadone Screen Negative (NEGATIVE) Ur Propoxyphene Screen Negative (NEGATIVE) Acetaminophen (10.0-30.0) ug/mL Ur Barbiturates Screen Negative (NEGATIVE) Ur Tricyclics Screen Negative (NEGATIVE) Ur Phencyclidine Scrn Negative (NEGATIVE) Ur Amphetamine Screen Negative (NEGATIVE) U Methamphetamines Scrn Negative (NEGATIVE) Urine MDMA Screen Negative (NEGATIVE) U Benzodiazepines Scrn Negative (NEGATIVE) U Cocaine Metab Screen Negative (NEGATIVE) U Marijuana (THC) Screen Negative (NEGATIVE) Ethyl Alcohol mg/dL 04/02/19 04/02/19 04/02/19 Range/Units 12:04 12:04 12:04 WBC (4.5-11.0) K/uL RBC (3.30-5.50) M/uL Hgb (12.0-15.0) g/dL Hct (36.0-48.0) % MCV (80-98) fL MCH (27-31) pg MCHC (32-36) % Plt Count (150-400) K/uL VBG pH (7.350-7.450) Sodium 138 L (140-148) mmol/L Potassium 4.0 (3.6-5.2) mmol/L Chloride 96 L (100-108) mmol/L Carbon Dioxide 20 L (21-32) mmol/L Anion Gap 26.0 H (5.0-14.0) mmol/L BUN 15 D (7-18) mg/dL Creatinine 0.9 (0.6-1.0) mg/dL Est Cr Clr Drug Dosing 50.79 mL/min Estimated GFR (MDRD) > 60 (>60) Glucose 63 L (74-106) mg/dL Lactic Acid (0.4-2.0) mmol/L Calcium 8.7 (8.5-10.1) mg/dL Total Bilirubin 0.6 (0.2-1.0) mg/dL AST 33 (15-37) U/L ALT 38 (12-78) U/L Alkaline Phosphatase 82 (46-116) U/L Total Protein 8.6 H (6.4-8.2) g/dL Albumin 4.6 (3.4-5.0) g/dL Globulin 4.0 H (2.3-3.5) g/dL Albumin/Globulin Ratio 1.2 (1.2-2.2) TSH, Ultra Sensitive 2.610 (0.358-3.740) uIU/mL Urine Color (YELLOW) Urine Appearance (CLEAR) Urine pH (5.0-8.0) Ur Specific [place] (1.008-1.030) Urine Protein (NEGATIVE) mg/dL Urine Glucose (UA) (NEGATIVE) mg/dL Urine Ketones (NEGATIVE) mg/dL Urine Occult Blood (NEGATIVE) Urine Nitrite (NEGATIVE) Urine Bilirubin (NEGATIVE) Urine Urobilinogen (0.2-1.0) EU/dL Ur Leukocyte Esterase (NEGATIVE) Urine RBC (0-5) Urine WBC (0-5) Ur Epithelial Cells Amorphous Sediment Urine Bacteria Urine Mucus Salicylates (2.0-20.0) mg/dL Urine Opiates Screen (NEGATIVE) Ur Oxycodone Screen (NEGATIVE) Urine Methadone Screen (NEGATIVE) Ur Propoxyphene Screen (NEGATIVE) Acetaminophen 0.0 L (10.0-30.0) ug/mL Ur Barbiturates Screen (NEGATIVE) Ur Tricyclics Screen (NEGATIVE) Ur Phencyclidine Scrn (NEGATIVE) Ur Amphetamine Screen (NEGATIVE) U Methamphetamines Scrn (NEGATIVE) Urine MDMA Screen (NEGATIVE) U Benzodiazepines Scrn (NEGATIVE) U Cocaine Metab Screen (NEGATIVE) U Marijuana (THC) Screen (NEGATIVE) Ethyl Alcohol 290 mg/dL 04/02/19 04/02/19 04/02/19 Range/Units 12:04 12:36 12:37 WBC (4.5-11.0) K/uL RBC (3.30-5.50) M/uL Hgb (12.0-15.0) g/dL Hct (36.0-48.0) % MCV (80-98) fL MCH (27-31) pg MCHC (32-36) % Plt Count (150-400) K/uL VBG pH 7.353 (7.350-7.450) Sodium (140-148) mmol/L Potassium (3.6-5.2) mmol/L Chloride (100-108) mmol/L Carbon Dioxide (21-32) mmol/L Anion Gap (5.0-14.0) mmol/L BUN (7-18) mg/dL Creatinine (0.6-1.0) mg/dL Est Cr Clr Drug Dosing mL/min Estimated GFR (MDRD) (>60) Glucose (74-106) mg/dL Lactic Acid 7.0 H (0.4-2.0) mmol/L Calcium (8.5-10.1) mg/dL Total Bilirubin (0.2-1.0) mg/dL AST (15-37) U/L ALT (12-78) U/L Alkaline Phosphatase (46-116) U/L Total Protein (6.4-8.2) g/dL Albumin (3.4-5.0) g/dL Globulin (2.3-3.5) g/dL Albumin/Globulin Ratio (1.2-2.2) TSH, Ultra Sensitive (0.358-3.740) uIU/mL Urine Color (YELLOW) Urine Appearance (CLEAR) Urine pH (5.0-8.0) Ur Specific [place] (1.008-1.030) Urine Protein (NEGATIVE) mg/dL Urine Glucose (UA) (NEGATIVE) mg/dL Urine Ketones (NEGATIVE) mg/dL Urine Occult Blood (NEGATIVE) Urine Nitrite (NEGATIVE) Urine Bilirubin (NEGATIVE) Urine Urobilinogen (0.2-1.0) EU/dL Ur Leukocyte Esterase (NEGATIVE) Urine RBC (0-5) Urine WBC (0-5) Ur Epithelial Cells Amorphous Sediment Urine Bacteria Urine Mucus Salicylates 3.7 (2.0-20.0) mg/dL Urine Opiates Screen (NEGATIVE) Ur Oxycodone Screen (NEGATIVE) Urine Methadone Screen (NEGATIVE) Ur Propoxyphene Screen (NEGATIVE) Acetaminophen (10.0-30.0) ug/mL Ur Barbiturates Screen (NEGATIVE) Ur Tricyclics Screen (NEGATIVE) Ur Phencyclidine Scrn (NEGATIVE) Ur Amphetamine Screen (NEGATIVE) U Methamphetamines Scrn (NEGATIVE) Urine MDMA Screen (NEGATIVE) U Benzodiazepines Scrn (NEGATIVE) U Cocaine Metab Screen (NEGATIVE) U Marijuana (THC) Screen (NEGATIVE) Ethyl Alcohol mg/dL Result Diagrams: 04/02/19 12:04 04/02/19 12:04 Sepsis Event Note - Evaluation Sepsis Screening Result: No Definite Risk - Focused Exam Vital Signs: Vital Signs Temp Pulse Resp BP Pulse Ox 04/02/19 10:30 97.2 F 111 H 18 140/80 97 Date Exam was Performed: 04/02/19 Time Exam was Performed: 15:02 *Q Meaningful Use (ADM) - VTE Risk Assess *Q Each Risk Factor Represents 1 Point: Age 41 - 59 years Total Score 1 Point Risk Factors: 1 Each Risk Factor Represents 2 Points: None Total Score 2 Point Risk Factors: 0 Each Risk Factor Represents 3 Points: None Total Score 3 Point Risk Factors: 0 Each Risk Factor Represents 5 Points: None Total Score 5 Point Risk Factors: 0 Venous Thromboembolism Risk Factor Score *Q: 1 Problem List Initiated/Reviewed/Updated: Yes Orders Last 24hrs: Active Orders 24 hr Category Date Time Status Patient Status Manage Transfer [TRANSFER] Routine ADT 04/02/19 14:13 Ordered LACTIC ACID [CHEM] Stat Lab 04/02/19 17:30 Ordered Sodium Chloride 0.9% [Normal Saline] 1,000 ml Med 04/02/19 13:40 Active IV .BOLUS Resuscitation Status Routine Resus Stat 04/02/19 14:17 Ordered Medication Orders Sodium Chloride (Normal Saline) 1,000 mls @ 1,000 mls/hr IV .BOLUS ONE Stop: 04/02/19 14:39 Last Admin: 04/02/19 14:18 Dose: 1,000 mls/hr Assessment/Plan Comment:: ASSESSMENT AND PLAN METABOLIC ACIDOSIS-associated with elevated anion gap and elevated lactic acid. No hyperglycemia and carbon dioxide level mildly low at 20. Likely related to poor nutrition, recent alcohol use, and dehydration. -IV fluids for hydration -Recheck BMP and lactic acid level later today and in a.m. ALCOHOL ABUSE-she is at high risk for alcohol withdrawal delirium -Monitor in ICU -Gabapentin 400 mg every 8 hours for 4 days, then 200 mg every 8 hours for 4 days -Alcohol withdrawal protocol -Banana bag SUICIDAL IDEATION-history of ongoing severe depression -72-hour hold -Suicide precautions -Transfer to inpatient psychiatric facility when medically stable MAINTENANCE ISSUES -DVT prophylaxis; SCUDs -GI prophylaxis; not indicated -[place] catheter; not indicated -Nutrition; regular diet -Nicotine dependence; not required CODE STATUS-FULL CODE ADMISSION STATUS-patient will be admitted to inpatient status, expect at least a 2 night hospital stay for evaluation and management of problems as outlined above. At the time of this admission I do not reasonably expected evaluation and management of this problem will require more than a 96 hour hospital stay. DISPOSITION-anticipate discharge to home after the hospital stay. PRIMARY CARE PROVIDER-Dr. Joe - Mortality Measure Prognosis:: Good
[2019-04-02] MEDS ORDERED: Ondansetron 4 MG/2 ML SDV IV PRN (15:11)
[2019-04-02] MEDS ORDERED: Albuterol 8 GM Inhaler INH PRN (15:11)
[2019-04-02] MEDS ORDERED: Albuterol 0.083% 2.5 MG/3 ML Neb Soln NEB PRN (15:11)
[2019-04-02] MEDS ORDERED: Acetaminophen 325 MG Tab PO PRN (15:11)
[2019-04-02] MEDS ORDERED: Sodium Chloride 0.9% 1,000 ML IV SCH ×2 (15:11)
[2019-04-02] MEDS ORDERED: LORazepam 2 MG/ML SDV IV SCH (15:11)
[2019-04-02] MEDS ORDERED: Polyethylene Glycol 3350 Powder 17 GM Packet PO PRN (15:11)
[2019-04-02] MEDS ORDERED: Sodium Chloride 0.9% 10 ML Syringe FLUSH PRN (15:11)
[2019-04-02] MEDS: Gabapentin 400 MG Cap PO SCH ×2 (15:41→23:52)
[2019-04-02] MEDS ORDERED: MVI, Adult with Vitamin K 10 ML, Thiamine 100 MG, Folic Acid 1 MG, Magnesium Sulfate 2 ... IV ONE ×5 (16:00)
[2019-04-02] MEDS: LORazepam 1 MG Tab PO SCH ×2 (17:30→21:45)
[2019-04-02] MEDS: Doxepin 25 MG Cap PO SCH (20:47)
[2019-04-02] MEDS: QUEtiapine 25 MG Tab PO SCH (20:47)
[2019-04-03] MEDS: Gabapentin 400 MG Cap PO SCH ×3 (07:35→22:07)
[2019-04-03] MEDS: Folic Acid 1 MG Tab PO SCH (09:31)
[2019-04-03] MEDS: Vilazodone 20 MG Tab PO SCH (09:32)
[2019-04-03] MEDS: Thiamine 100 MG Tab PO SCH (09:32)
[2019-04-03] MEDS: Cyanocobalamin (Vitamin B12) 1,000 MCG Tab SL SCH (09:32)
--- NOTE | 2019-04-03 09:52 | PCM.PN ---
- General Info Date of Service: 04/03/19 Subjective Update: Ms. Mack is been stable since admission yesterday. Metabolic acidosis has resolved after hydration. She is showing no evidence of significant alcohol withdrawal thus far. Further information obtained from family; she has had several failed to inpatient treatments for alcohol and has been unable to control her alcohol use. She has had previous suicide attempts with drug overdose. Recent history of suicidal ideation. She continues to have a very flat affect with minimal interaction. Functional Status: Reports: Tolerating Diet, Urinating - Review of Systems Pulmonary: Reports: No Symptoms Cardiovascular: Reports: No Symptoms Gastrointestinal: Reports: No Symptoms - Patient Data Vitals - Most Recent: Last Vital Signs Temp 97.5 F 04/03/19 07:10 Pulse 97 04/03/19 07:10 Resp 18 04/03/19 07:10 BP 131/87 04/03/19 07:10 Pulse Ox 98 04/03/19 07:10 Weight - Most Recent: 120 lb 2.431 oz I&O - Last 24 Hours: Intake & Output 04/02/19 04/03/19 04/03/19 22:59 06:59 14:59 Intake Total 2682 Balance 2682 Lab Results Last 24 Hours: Laboratory Results - last 24 hr 04/02/19 04/02/19 04/02/19 Range/Units 11:34 11:34 12:04 WBC 6.8 (4.5-11.0) K/uL RBC 5.20 (3.30-5.50) M/uL Hgb 15.9 H (12.0-15.0) g/dL Hct 47.1 (36.0-48.0) % MCV 91 (80-98) fL MCH 31 (27-31) pg MCHC 34 (32-36) % Plt Count 264 (150-400) K/uL VBG pH (7.350-7.450) Sodium (140-148) mmol/L Potassium (3.6-5.2) mmol/L Chloride (100-108) mmol/L Carbon Dioxide (21-32) mmol/L Anion Gap (5.0-14.0) mmol/L BUN (7-18) mg/dL Creatinine (0.6-1.0) mg/dL Est Cr Clr Drug Dosing mL/min Estimated GFR (MDRD) (>60) Glucose (74-106) mg/dL Lactic Acid (0.4-2.0) mmol/L Calcium (8.5-10.1) mg/dL Total Bilirubin (0.2-1.0) mg/dL AST (15-37) U/L ALT (12-78) U/L Alkaline Phosphatase (46-116) U/L Total Protein (6.4-8.2) g/dL Albumin (3.4-5.0) g/dL Globulin (2.3-3.5) g/dL Albumin/Globulin Ratio (1.2-2.2) TSH, Ultra Sensitive (0.358-3.740) uIU/mL Urine Color Yellow (YELLOW) Urine Appearance Clear (CLEAR) Urine pH 5.5 (5.0-8.0) Ur Specific Weed 1.010 (1.008-1.030) Urine Protein Negative (NEGATIVE) mg/dL Urine Glucose (UA) Negative (NEGATIVE) mg/dL Urine Ketones 15 H (NEGATIVE) mg/dL Urine Occult Blood Trace-intact H (NEGATIVE) Urine Nitrite Negative (NEGATIVE) Urine Bilirubin Negative (NEGATIVE) Urine Urobilinogen 0.2 (0.2-1.0) EU/dL Ur Leukocyte Esterase Negative (NEGATIVE) Urine RBC 0-5 (0-5) Urine WBC Not seen (0-5) Ur Epithelial Cells Not seen Amorphous Sediment Rare Urine Bacteria Not seen Urine Mucus Not seen Salicylates (2.0-20.0) mg/dL Urine Opiates Screen Negative (NEGATIVE) Ur Oxycodone Screen Negative (NEGATIVE) Urine Methadone Screen Negative (NEGATIVE) Ur Propoxyphene Screen Negative (NEGATIVE) Acetaminophen (10.0-30.0) ug/mL Ur Barbiturates Screen Negative (NEGATIVE) Ur Tricyclics Screen Negative (NEGATIVE) Ur Phencyclidine Scrn Negative (NEGATIVE) Ur Amphetamine Screen Negative (NEGATIVE) U Methamphetamines Scrn Negative (NEGATIVE) Urine MDMA Screen Negative (NEGATIVE) U Benzodiazepines Scrn Negative (NEGATIVE) U Cocaine Metab Screen Negative (NEGATIVE) U Marijuana (THC) Screen Negative (NEGATIVE) Ethyl Alcohol mg/dL 04/02/19 04/02/19 04/02/19 Range/Units 12:04 12:04 12:04 WBC (4.5-11.0) K/uL RBC (3.30-5.50) M/uL Hgb (12.0-15.0) g/dL Hct (36.0-48.0) % MCV (80-98) fL MCH (27-31) pg MCHC (32-36) % Plt Count (150-400) K/uL VBG pH (7.350-7.450) Sodium 138 L (140-148) mmol/L Potassium 4.0 (3.6-5.2) mmol/L Chloride 96 L (100-108) mmol/L Carbon Dioxide 20 L (21-32) mmol/L Anion Gap 26.0 H (5.0-14.0) mmol/L BUN 15 D (7-18) mg/dL Creatinine 0.9 (0.6-1.0) mg/dL Est Cr Clr Drug Dosing 50.79 mL/min Estimated GFR (MDRD) > 60 (>60) Glucose 63 L (74-106) mg/dL Lactic Acid (0.4-2.0) mmol/L Calcium 8.7 (8.5-10.1) mg/dL Total Bilirubin 0.6 (0.2-1.0) mg/dL AST 33 (15-37) U/L ALT 38 (12-78) U/L Alkaline Phosphatase 82 (46-116) U/L Total Protein 8.6 H (6.4-8.2) g/dL Albumin 4.6 (3.4-5.0) g/dL Globulin 4.0 H (2.3-3.5) g/dL Albumin/Globulin Ratio 1.2 (1.2-2.2) TSH, Ultra Sensitive 2.610 (0.358-3.740) uIU/mL Urine Color (YELLOW) Urine Appearance (CLEAR) Urine pH (5.0-8.0) Ur Specific Weed (1.008-1.030) Urine Protein (NEGATIVE) mg/dL Urine Glucose (UA) (NEGATIVE) mg/dL Urine Ketones (NEGATIVE) mg/dL Urine Occult Blood (NEGATIVE) Urine Nitrite (NEGATIVE) Urine Bilirubin (NEGATIVE) Urine Urobilinogen (0.2-1.0) EU/dL Ur Leukocyte Esterase (NEGATIVE) Urine RBC (0-5) Urine WBC (0-5) Ur Epithelial Cells Amorphous Sediment Urine Bacteria Urine Mucus Salicylates (2.0-20.0) mg/dL Urine Opiates Screen (NEGATIVE) Ur Oxycodone Screen (NEGATIVE) Urine Methadone Screen (NEGATIVE) Ur Propoxyphene Screen (NEGATIVE) Acetaminophen 0.0 L (10.0-30.0) ug/mL Ur Barbiturates Screen (NEGATIVE) Ur Tricyclics Screen (NEGATIVE) Ur Phencyclidine Scrn (NEGATIVE) Ur Amphetamine Screen (NEGATIVE) U Methamphetamines Scrn (NEGATIVE) Urine MDMA Screen (NEGATIVE) U Benzodiazepines Scrn (NEGATIVE) U Cocaine Metab Screen (NEGATIVE) U Marijuana (THC) Screen (NEGATIVE) Ethyl Alcohol 290 mg/dL 04/02/19 04/02/19 04/02/19 Range/Units 12:04 12:36 12:37 WBC (4.5-11.0) K/uL RBC (3.30-5.50) M/uL Hgb (12.0-15.0) g/dL Hct (36.0-48.0) % MCV (80-98) fL MCH (27-31) pg MCHC (32-36) % Plt Count (150-400) K/uL VBG pH 7.353 (7.350-7.450) Sodium (140-148) mmol/L Potassium (3.6-5.2) mmol/L Chloride (100-108) mmol/L Carbon Dioxide (21-32) mmol/L Anion Gap (5.0-14.0) mmol/L BUN (7-18) mg/dL Creatinine (0.6-1.0) mg/dL Est Cr Clr Drug Dosing mL/min Estimated GFR (MDRD) (>60) Glucose (74-106) mg/dL Lactic Acid 7.0 H (0.4-2.0) mmol/L Calcium (8.5-10.1) mg/dL Total Bilirubin (0.2-1.0) mg/dL AST (15-37) U/L ALT (12-78) U/L Alkaline Phosphatase (46-116) U/L Total Protein (6.4-8.2) g/dL Albumin (3.4-5.0) g/dL Globulin (2.3-3.5) g/dL Albumin/Globulin Ratio (1.2-2.2) TSH, Ultra Sensitive (0.358-3.740) uIU/mL Urine Color (YELLOW) Urine Appearance (CLEAR) Urine pH (5.0-8.0) Ur Specific Weed (1.008-1.030) Urine Protein (NEGATIVE) mg/dL Urine Glucose (UA) (NEGATIVE) mg/dL Urine Ketones (NEGATIVE) mg/dL Urine Occult Blood (NEGATIVE) Urine Nitrite (NEGATIVE) Urine Bilirubin (NEGATIVE) Urine Urobilinogen (0.2-1.0) EU/dL Ur Leukocyte Esterase (NEGATIVE) Urine RBC (0-5) Urine WBC (0-5) Ur Epithelial Cells Amorphous Sediment Urine Bacteria Urine Mucus Salicylates 3.7 (2.0-20.0) mg/dL Urine Opiates Screen (NEGATIVE) Ur Oxycodone Screen (NEGATIVE) Urine Methadone Screen (NEGATIVE) Ur Propoxyphene Screen (NEGATIVE) Acetaminophen (10.0-30.0) ug/mL Ur Barbiturates Screen (NEGATIVE) Ur Tricyclics Screen (NEGATIVE) Ur Phencyclidine Scrn (NEGATIVE) Ur Amphetamine Screen (NEGATIVE) U Methamphetamines Scrn (NEGATIVE) Urine MDMA Screen (NEGATIVE) U Benzodiazepines Scrn (NEGATIVE) U Cocaine Metab Screen (NEGATIVE) U Marijuana (THC) Screen (NEGATIVE) Ethyl Alcohol mg/dL 04/02/19 04/02/19 04/03/19 Range/Units 20:00 20:00 05:00 WBC (4.5-11.0) K/uL RBC (3.30-5.50) M/uL Hgb (12.0-15.0) g/dL Hct (36.0-48.0) % MCV (80-98) fL MCH (27-31) pg MCHC (32-36) % Plt Count (150-400) K/uL VBG pH (7.350-7.450) Sodium 139 L (140-148) mmol/L Potassium 3.7 (3.6-5.2) mmol/L Chloride 103 (100-108) mmol/L Carbon Dioxide 24 (21-32) mmol/L Anion Gap 15.7 H (5.0-14.0) mmol/L BUN 15 (7-18) mg/dL Creatinine 0.7 (0.6-1.0) mg/dL Est Cr Clr Drug Dosing 65.30 mL/min Estimated GFR (MDRD) > 60 (>60) Glucose 169 H (74-106) mg/dL Lactic Acid 2.7 H 0.9 (0.4-2.0) mmol/L Calcium 7.7 L (8.5-10.1) mg/dL Total Bilirubin (0.2-1.0) mg/dL AST (15-37) U/L ALT (12-78) U/L Alkaline Phosphatase (46-116) U/L Total Protein (6.4-8.2) g/dL Albumin (3.4-5.0) g/dL Globulin (2.3-3.5) g/dL Albumin/Globulin Ratio (1.2-2.2) TSH, Ultra Sensitive (0.358-3.740) uIU/mL Urine Color (YELLOW) Urine Appearance (CLEAR) Urine pH (5.0-8.0) Ur Specific Weed (1.008-1.030) Urine Protein (NEGATIVE) mg/dL Urine Glucose (UA) (NEGATIVE) mg/dL Urine Ketones (NEGATIVE) mg/dL Urine Occult Blood (NEGATIVE) Urine Nitrite (NEGATIVE) Urine Bilirubin (NEGATIVE) Urine Urobilinogen (0.2-1.0) EU/dL Ur Leukocyte Esterase (NEGATIVE) Urine RBC (0-5) Urine WBC (0-5) Ur Epithelial Cells Amorphous Sediment Urine Bacteria Urine Mucus Salicylates (2.0-20.0) mg/dL Urine Opiates Screen (NEGATIVE) Ur Oxycodone Screen (NEGATIVE) Urine Methadone Screen (NEGATIVE) Ur Propoxyphene Screen (NEGATIVE) Acetaminophen (10.0-30.0) ug/mL Ur Barbiturates Screen (NEGATIVE) Ur Tricyclics Screen (NEGATIVE) Ur Phencyclidine Scrn (NEGATIVE) Ur Amphetamine Screen (NEGATIVE) U Methamphetamines Scrn (NEGATIVE) Urine MDMA Screen (NEGATIVE) U Benzodiazepines Scrn (NEGATIVE) U Cocaine Metab Screen (NEGATIVE) U Marijuana (THC) Screen (NEGATIVE) Ethyl Alcohol mg/dL 04/03/19 Range/Units 05:11 WBC (4.5-11.0) K/uL RBC (3.30-5.50) M/uL Hgb (12.0-15.0) g/dL Hct (36.0-48.0) % MCV (80-98) fL MCH (27-31) pg MCHC (32-36) % Plt Count (150-400) K/uL VBG pH (7.350-7.450) Sodium 142 (140-148) mmol/L Potassium 4.5 (3.6-5.2) mmol/L Chloride 106 (100-108) mmol/L Carbon Dioxide 26 (21-32) mmol/L Anion Gap 9.8 (5.0-14.0) mmol/L BUN 11 (7-18) mg/dL Creatinine 0.7 (0.6-1.0) mg/dL Est Cr Clr Drug Dosing 65.30 mL/min Estimated GFR (MDRD) > 60 (>60) Glucose 82 (74-106) mg/dL Lactic Acid (0.4-2.0) mmol/L Calcium 7.8 L (8.5-10.1) mg/dL Total Bilirubin (0.2-1.0) mg/dL AST (15-37) U/L ALT (12-78) U/L Alkaline Phosphatase (46-116) U/L Total Protein (6.4-8.2) g/dL Albumin (3.4-5.0) g/dL Globulin (2.3-3.5) g/dL Albumin/Globulin Ratio (1.2-2.2) TSH, Ultra Sensitive (0.358-3.740) uIU/mL Urine Color (YELLOW) Urine Appearance (CLEAR) Urine pH (5.0-8.0) Ur Specific Weed (1.008-1.030) Urine Protein (NEGATIVE) mg/dL Urine Glucose (UA) (NEGATIVE) mg/dL Urine Ketones (NEGATIVE) mg/dL Urine Occult Blood (NEGATIVE) Urine Nitrite (NEGATIVE) Urine Bilirubin (NEGATIVE) Urine Urobilinogen (0.2-1.0) EU/dL Ur Leukocyte Esterase (NEGATIVE) Urine RBC (0-5) Urine WBC (0-5) Ur Epithelial Cells Amorphous Sediment Urine Bacteria Urine Mucus Salicylates (2.0-20.0) mg/dL Urine Opiates Screen (NEGATIVE) Ur Oxycodone Screen (NEGATIVE) Urine Methadone Screen (NEGATIVE) Ur Propoxyphene Screen (NEGATIVE) Acetaminophen (10.0-30.0) ug/mL Ur Barbiturates Screen (NEGATIVE) Ur Tricyclics Screen (NEGATIVE) Ur Phencyclidine Scrn (NEGATIVE) Ur Amphetamine Screen (NEGATIVE) U Methamphetamines Scrn (NEGATIVE) Urine MDMA Screen (NEGATIVE) U Benzodiazepines Scrn (NEGATIVE) U Cocaine Metab Screen (NEGATIVE) U Marijuana (THC) Screen (NEGATIVE) Ethyl Alcohol mg/dL Med Orders - Current: Current Medications Acetaminophen (Tylenol) 650 mg PO Q4H PRN PRN Reason: Pain (Mild 1-3)/fever Albuterol (Ventolin Hfa) 0 gm INH Q4H PRN PRN Reason: breath Albuterol (Proventil Neb Soln) 2.5 mg NEB Q4H PRN PRN Reason: Shortness Of Breath/wheezing Cyanocobalamin (Vitamin B12) 1,000 mcg SL DAILY [facility] Last Admin: 04/03/19 09:32 Dose: 1,000 mcg Doxepin HCl (Sinequan) 75 mg PO BEDTIME [facility] Last Admin: 04/02/19 20:47 Dose: 75 mg Eszopiclone (Lunesta) 2 mg PO BEDTIME [facility] Last Admin: 04/02/19 20:47 Dose: 2 mg Folic Acid (Folic Acid) 1 mg PO DAILY [facility] Last Admin: 04/03/19 09:31 Dose: 1 mg Gabapentin (Neurontin) 400 mg PO Q8H [facility] Stop: 04/06/19 07:01 Last Admin: 04/03/19 07:35 Dose: 400 mg Lorazepam (Ativan) 0 mg IV ASDIRECTED JUST[facility]; Protocol Lorazepam (Ativan) 0 mg PO ASDIRECTED [facility]; Protocol Last Admin: 04/02/19 21:45 Dose: 1 mg Ondansetron HCl (Zofran) 4 mg IV Q4H PRN PRN Reason: Nausea/Vomiting Polyethylene Glycol (Miralax) 17 gm PO DAILY PRN PRN Reason: Constipation Quetiapine Fumarate (Seroquel) 25 mg PO BEDTIME [facility] Last Admin: 04/02/19 20:47 Dose: 25 mg Sodium Chloride (Saline Flush) 10 ml FLUSH ASDIRECTED PRN PRN Reason: Keep Vein Open Thiamine HCl (Vitamin B-1) 100 mg PO DAILY [facility] Last Admin: 04/03/19 09:32 Dose: 100 mg Vilazodone HCl (Viibryd) 20 mg PO DAILY [facility] Last Admin: 04/03/19 09:32 Dose: 20 mg Discontinued Medications Sodium Chloride (Normal Saline) 1,000 mls @ 1,000 mls/hr IV .BOLUS ONE Stop: 04/02/19 14:39 Last Admin: 04/02/19 14:18 Dose: 1,000 mls/hr Multivitamins/Minerals 10 ml/Thiamine HCl 100 mg/ Folic Acid 1 mg/ Magnesium Sulfate 2 gm/ Sodium Chloride 1,015.2 mls @ 100 mls/hr IV ONETIME ONE Stop: 04/03/19 02:09 Last Admin: 04/02/19 16:24 Dose: 100 mls/hr Sodium Chloride (Normal Saline) 1,000 mls @ 250 mls/hr IV ASDIRECTED JUSTO Stop: 04/02/19 21:12 Last Admin: 04/02/19 15:42 Dose: 250 mls/hr Sodium Chloride (Normal Saline) 1,000 mls @ 125 mls/hr IV ASDIRECTED [facility] Stop: 04/02/19 20:30 Last Admin: 04/02/19 19:45 Dose: 125 mls/hr Lorazepam (Ativan) 1 mg PO ONETIME ONE Stop: 04/02/19 11:17 Last Admin: 04/02/19 11:23 Dose: 1 mg Naproxen (Naprosyn) 250 mg PO NOW STA Stop: 04/02/19 11:48 Last Admin: 04/02/19 12:01 Dose: 250 mg Thiamine HCl (Vitamin B-1) 100 mg PO ONETIME ONE Stop: 04/02/19 12:47 Last Admin: 04/02/19 14:20 Dose: 100 mg - Exam Quality Assessment: DVT Prophylaxis General: Alert, Oriented, No Acute Distress. No: Cooperative Lungs: Clear to Auscultation, Normal Respiratory Effort Cardiovascular: Regular Rate, Regular Rhythm, No Murmurs GI/Abdominal Exam: Soft, Non-Tender, No Organomegaly, No Distention Extremities: Non-Tender, No Pedal Edema Sepsis Event Note - Evaluation Sepsis Screening Result: No Definite Risk - Focused Exam Vital Signs: Vital Signs Temp Pulse Resp BP Pulse Ox 04/03/19 07:10 97.5 F 97 18 131/87 98 04/03/19 06:00 91 15 120/68 94 L 04/03/19 04:00 98.5 F 98 14 129/78 95 04/03/19 02:00 101 H 19 119/77 04/03/19 00:00 97.3 F 112 H 21 H 106/63 96 04/02/19 22:00 127 H 20 108/54 L 96 Date Exam was Performed: 04/03/19 Time Exam was Performed: 09:46 - Problem List Review Problem List Initiated/Reviewed/Updated: Yes - My Orders Last 24 Hours: My Active Orders 04/02/19 14:17 Resuscitation Status Routine 04/02/19 15:00 Gabapentin [Neurontin] 400 mg PO Q8H 04/02/19 15:11 Patient Status [ADT] Routine Ambulate [RC] QID CIWAA Assessment [RC] Q4H Cardiac Monitoring [RC] Q6H Height and Weight [RC] DAILY Intake and Output [RC] QSHIFT Notify Provider Vital Signs [RC] ASDIRECTED Notify Provider [RC] PRN Oxygen Therapy [RC] PRN Peripheral IV Care [RC] . DIRECTED Pulse Oximetry [RC] CONTINUOUS RT Aerosol Therapy [RC] ASDIRECTED Up With Assistance [RC] ASDIRECTED Up to Chair [RC] QID VTE/DVT Education [RC] Per Unit Routine Vital Signs [RC] Q2H Acetaminophen [Tylenol] 650 mg PO Q4H PRN Albuterol [Proventil Neb Soln] 2.5 mg NEB Q4H PRN Albuterol [Ventolin HFA] 0 gm INH Q4H PRN LORazepam [Ativan] See Protocol IV ASDIRECTED LORazepam [Ativan] See Protocol PO ASDIRECTED Ondansetron [Zofran] 4 mg IV Q4H PRN Sodium Chloride 0.9% [Saline Flush] 10 ml FLUSH ASDIRECTED PRN polyethylene glycoL 3350 [MiraLAX] 17 gm PO DAILY PRN Peripheral IV Insertion Adult [OM.PC] Routine Sequential Compression Device [OM.PC] Per Unit Routine 04/02/19 15:12 Suicide Precautions [OM.PC] Routine 04/02/19 21:00 Doxepin [SINEquan] 75 mg PO BEDTIME Eszopiclone [Lunesta] 2 mg PO BEDTIME QUEtiapine [SEROqueL] 25 mg PO BEDTIME 04/02/19 Lunch Regular Diet [DIET] 04/03/19 09:00 Cyanocobalamin (Vitamin B12) [Vitamin B12] 1,000 mcg SL DAILY Folic Acid 1 mg PO DAILY Thiamine [Vitamin B-1] 100 mg PO DAILY Vilazodone [Viibryd] 20 mg PO DAILY 04/03/19 09:43 Convert IV to Saline Lock [OM.PC] Routine - Plan Plan:: ASSESSMENT AND PLAN METABOLIC ACIDOSIS-resolved, she is now medically stable -Saline lock IV ALCOHOL ABUSE-she is at high risk for alcohol withdrawal delirium -Monitor in ICU -Gabapentin 400 mg every 8 hours for 4 days, then 200 mg every 8 hours for 4 days -Alcohol withdrawal protocol -Banana bag SUICIDAL IDEATION-history of ongoing severe depression -72-hour hold -Suicide precautions -Transfer to inpatient psychiatric facility MAINTENANCE ISSUES -DVT prophylaxis; SCUDs -GI prophylaxis; not indicated -Calvillo catheter; not indicated -Nutrition; regular diet -Nicotine dependence; not required CODE STATUS-FULL CODE ADMISSION STATUS-patient will be admitted to inpatient status, expect at least a 2 night hospital stay for evaluation and management of problems as outlined above. At the time of this admission I do not reasonably expected evaluation and management of this problem will require more than a 96 hour hospital stay. DISPOSITION-anticipate discharge to inpatient treatment PRIMARY CARE PROVIDER-Dr. Joe
[2019-04-03] MEDS: LORazepam 1 MG Tab PO SCH (15:35)
[2019-04-03] MEDS: QUEtiapine 25 MG Tab PO SCH (20:46)
[2019-04-03] MEDS: Doxepin 25 MG Cap PO SCH (20:47)
[2019-04-04] MEDS: Gabapentin 400 MG Cap PO SCH ×3 (07:55→22:16)
[2019-04-04] MEDS: Vilazodone 20 MG Tab PO SCH (08:00)
[2019-04-04] MEDS: Folic Acid 1 MG Tab PO SCH (08:00)
[2019-04-04] MEDS: Cyanocobalamin (Vitamin B12) 1,000 MCG Tab SL SCH (08:01)
[2019-04-04] MEDS: Thiamine 100 MG Tab PO SCH (08:01)
--- NOTE | 2019-04-04 09:28 | PCM.PN ---
- General Info Date of Service: 04/04/19 Subjective Update: Ms. Mack has been stable since yesterday, vital signs have been good and she has remained afebrile. No evidence of alcohol withdrawal. Functional Status: Reports: Tolerating Diet, Urinating - Review of Systems General: Reports: No Symptoms Pulmonary: Reports: No Symptoms Cardiovascular: Reports: No Symptoms Gastrointestinal: Reports: No Symptoms Psychiatric: Reports: Depression. Denies: Mood Lability, Agitation, Hallucinations - Patient Data Vitals - Most Recent: Last Vital Signs Temp 96.0 F L 04/04/19 04:57 Pulse 78 04/04/19 05:46 Resp 16 04/04/19 05:46 BP 117/84 04/04/19 04:57 Pulse Ox 96 04/04/19 05:46 Weight - Most Recent: 121 lb 14.65 oz I&O - Last 24 Hours: Intake & Output 04/03/19 04/04/19 04/04/19 22:59 06:59 14:59 Intake Total 700 Output Total 350 1000 Balance -350 -300 Med Orders - Current: Current Medications Acetaminophen (Tylenol) 650 mg PO Q4H PRN PRN Reason: Pain (Mild 1-3)/fever Albuterol (Ventolin Hfa) 0 gm INH Q4H PRN PRN Reason: breath Albuterol (Proventil Neb Soln) 2.5 mg NEB Q4H PRN PRN Reason: Shortness Of Breath/wheezing Cyanocobalamin (Vitamin B12) 1,000 mcg SL DAILY [facility] Last Admin: 04/04/19 08:01 Dose: 1,000 mcg Doxepin HCl (Sinequan) 75 mg PO BEDTIME [facility] Last Admin: 04/03/19 20:47 Dose: 75 mg Eszopiclone (Lunesta) 2 mg PO BEDTIME [facility] Last Admin: 04/03/19 20:46 Dose: 2 mg Folic Acid (Folic Acid) 1 mg PO DAILY [facility] Last Admin: 04/04/19 08:00 Dose: 1 mg Gabapentin (Neurontin) 400 mg PO Q8H [facility] Stop: 04/06/19 07:01 Last Admin: 04/04/19 07:55 Dose: 400 mg Lorazepam (Ativan) 0 mg IV ASDIRECTED [facility]; Protocol Lorazepam (Ativan) 0 mg PO ASDIRECTED [facility]; Protocol Last Admin: 04/03/19 15:35 Dose: 1 mg Ondansetron HCl (Zofran) 4 mg IV Q4H PRN PRN Reason: Nausea/Vomiting Polyethylene Glycol (Miralax) 17 gm PO DAILY PRN PRN Reason: Constipation Quetiapine Fumarate (Seroquel) 25 mg PO BEDTIME [facility] Last Admin: 04/03/19 20:46 Dose: 25 mg Sodium Chloride (Saline Flush) 10 ml FLUSH ASDIRECTED PRN PRN Reason: Keep Vein Open Thiamine HCl (Vitamin B-1) 100 mg PO DAILY [facility] Last Admin: 04/04/19 08:01 Dose: 100 mg Vilazodone HCl (Viibryd) 20 mg PO DAILY [facility] Last Admin: 04/04/19 08:00 Dose: 20 mg Discontinued Medications Sodium Chloride (Normal Saline) 1,000 mls @ 1,000 mls/hr IV .BOLUS ONE Stop: 04/02/19 14:39 Last Admin: 04/02/19 14:18 Dose: 1,000 mls/hr Multivitamins/Minerals 10 ml/Thiamine HCl 100 mg/ Folic Acid 1 mg/ Magnesium Sulfate 2 gm/ Sodium Chloride 1,015.2 mls @ 100 mls/hr IV ONETIME ONE Stop: 04/03/19 02:09 Last Admin: 04/02/19 16:24 Dose: 100 mls/hr Sodium Chloride (Normal Saline) 1,000 mls @ 250 mls/hr IV ASDIRECTED [facility] Stop: 04/02/19 21:12 Last Admin: 04/02/19 15:42 Dose: 250 mls/hr Sodium Chloride (Normal Saline) 1,000 mls @ 125 mls/hr IV ASDIRECTED [facility] Stop: 04/02/19 20:30 Last Admin: 04/02/19 19:45 Dose: 125 mls/hr Lorazepam (Ativan) 1 mg PO ONETIME ONE Stop: 04/02/19 11:17 Last Admin: 04/02/19 11:23 Dose: 1 mg Naproxen (Naprosyn) 250 mg PO NOW STA Stop: 04/02/19 11:48 Last Admin: 04/02/19 12:01 Dose: 250 mg Thiamine HCl (Vitamin B-1) 100 mg PO ONETIME ONE Stop: 04/02/19 12:47 Last Admin: 04/02/19 14:20 Dose: 100 mg - Exam Quality Assessment: DVT Prophylaxis General: Alert, Oriented, Cooperative, Mild Distress Lungs: Clear to Auscultation, Normal Respiratory Effort Cardiovascular: Regular Rate, Regular Rhythm, No Murmurs GI/Abdominal Exam: Soft, Non-Tender, No Organomegaly, No Distention Extremities: Non-Tender, No Pedal Edema Sepsis Event Note - Evaluation Sepsis Screening Result: No Definite Risk - Focused Exam Vital Signs: Vital Signs Temp Pulse Resp BP Pulse Ox 04/04/19 05:46 78 16 96 04/04/19 04:57 96.0 F L 80 14 117/84 97 04/04/19 04:00 97.4 F 80 17 95 04/04/19 02:00 72 15 96 04/04/19 00:00 96.4 F L 83 16 117/86 96 04/03/19 22:00 77 16 125/76 96 Date Exam was Performed: 04/04/19 Time Exam was Performed: 09:19 - Problem List Review Problem List Initiated/Reviewed/Updated: Yes - My Orders Last 24 Hours: My Active Orders 04/03/19 09:00 Cyanocobalamin (Vitamin B12) [Vitamin B12] 1,000 mcg SL DAILY Folic Acid 1 mg PO DAILY Thiamine [Vitamin B-1] 100 mg PO DAILY Vilazodone [Viibryd] 20 mg PO DAILY 04/03/19 09:43 Convert IV to Saline Lock [OM.PC] Routine - Plan Plan:: ASSESSMENT AND PLAN METABOLIC ACIDOSIS-resolved, she is now medically stable -Saline lock IV ALCOHOL ABUSE-she is at high risk for alcohol withdrawal delirium. No evidence of withdrawal symptoms thus far -Monitor in ICU -Gabapentin 400 mg every 8 hours for 4 days, then 200 mg every 8 hours for 4 days -Alcohol withdrawal protocol SUICIDAL IDEATION-history of ongoing severe depression -72-hour hold -Suicide precautions -Transfer to inpatient psychiatric facility versus commitment proceedings MAINTENANCE ISSUES -DVT prophylaxis; SCUDs -GI prophylaxis; not indicated -Calvillo catheter; not indicated -Nutrition; regular diet -Nicotine dependence; not required CODE STATUS-FULL CODE ADMISSION STATUS-patient will be admitted to inpatient status, expect at least a 2 night hospital stay for evaluation and management of problems as outlined above. At the time of this admission I do not reasonably expected evaluation and management of this problem will require more than a 96 hour hospital stay. DISPOSITION-anticipate discharge to inpatient treatment versus commitment PRIMARY CARE PROVIDER-Dr. Joe
[2019-04-04] MEDS: Doxepin 25 MG Cap PO SCH (20:50)
[2019-04-04] MEDS: QUEtiapine 25 MG Tab PO SCH (20:50)
[2019-04-05] MEDS: Gabapentin 400 MG Cap PO SCH ×3 (07:59→22:03)
[2019-04-05] MEDS: Folic Acid 1 MG Tab PO SCH (08:15)
[2019-04-05] MEDS: Thiamine 100 MG Tab PO SCH (08:16)
[2019-04-05] MEDS: Vilazodone 20 MG Tab PO SCH (08:16)
[2019-04-05] MEDS: Cyanocobalamin (Vitamin B12) 1,000 MCG Tab SL SCH (08:16)
--- NOTE | 2019-04-05 09:37 | PCM.PN ---
- General Info Date of Service: 04/05/19 Subjective Update: Ms. Mack has been stable over the last 24 hours with no evidence of alcohol withdrawal. Functional Status: Reports: Tolerating Diet, Ambulating, Urinating - Review of Systems General: Reports: No Symptoms Pulmonary: Reports: No Symptoms Cardiovascular: Reports: No Symptoms Gastrointestinal: Reports: No Symptoms Psychiatric: Reports: Depression, Suicidal Ideation - Patient Data Vitals - Most Recent: Last Vital Signs Temp 98.6 F 04/05/19 03:00 Pulse 81 04/05/19 03:00 Resp 16 04/05/19 03:00 BP 139/85 04/05/19 03:00 Pulse Ox 92 L 04/05/19 03:00 Weight - Most Recent: 119 lb 7.849 oz I&O - Last 24 Hours: Intake & Output 04/04/19 04/05/19 04/05/19 22:59 06:59 14:59 Intake Total 960 Balance 960 Med Orders - Current: Current Medications Acetaminophen (Tylenol) 650 mg PO Q4H PRN PRN Reason: Pain (Mild 1-3)/fever Albuterol (Ventolin Hfa) 0 gm INH Q4H PRN PRN Reason: breath Albuterol (Proventil Neb Soln) 2.5 mg NEB Q4H PRN PRN Reason: Shortness Of Breath/wheezing Cyanocobalamin (Vitamin B12) 1,000 mcg SL DAILY [facility] Last Admin: 04/05/19 08:16 Dose: 1,000 mcg Doxepin HCl (Sinequan) 75 mg PO BEDTIME [facility] Last Admin: 04/04/19 20:50 Dose: 75 mg Eszopiclone (Lunesta) 2 mg PO BEDTIME [facility] Last Admin: 04/04/19 20:51 Dose: 2 mg Folic Acid (Folic Acid) 1 mg PO DAILY [facility] Last Admin: 04/05/19 08:15 Dose: 1 mg Gabapentin (Neurontin) 400 mg PO Q8H [facility] Stop: 04/06/19 07:01 Last Admin: 04/05/19 07:59 Dose: 400 mg Lorazepam (Ativan) 0 mg IV ASDIRECTED [facility]; Protocol Lorazepam (Ativan) 0 mg PO ASDIRECTED [facility]; Protocol Last Admin: 04/03/19 15:35 Dose: 1 mg Ondansetron HCl (Zofran) 4 mg IV Q4H PRN PRN Reason: Nausea/Vomiting Polyethylene Glycol (Miralax) 17 gm PO DAILY PRN PRN Reason: Constipation Quetiapine Fumarate (Seroquel) 25 mg PO BEDTIME [facility] Last Admin: 04/04/19 20:50 Dose: 25 mg Sodium Chloride (Saline Flush) 10 ml FLUSH ASDIRECTED PRN PRN Reason: Keep Vein Open Thiamine HCl (Vitamin B-1) 100 mg PO DAILY [facility] Last Admin: 04/05/19 08:16 Dose: 100 mg Vilazodone HCl (Viibryd) 20 mg PO DAILY [facility] Last Admin: 04/05/19 08:16 Dose: 20 mg Discontinued Medications Sodium Chloride (Normal Saline) 1,000 mls @ 1,000 mls/hr IV .BOLUS ONE Stop: 04/02/19 14:39 Last Admin: 04/02/19 14:18 Dose: 1,000 mls/hr Multivitamins/Minerals 10 ml/Thiamine HCl 100 mg/ Folic Acid 1 mg/ Magnesium Sulfate 2 gm/ Sodium Chloride 1,015.2 mls @ 100 mls/hr IV ONETIME ONE Stop: 04/03/19 02:09 Last Admin: 04/02/19 16:24 Dose: 100 mls/hr Sodium Chloride (Normal Saline) 1,000 mls @ 250 mls/hr IV ASDIRECTED [facility] Stop: 04/02/19 21:12 Last Admin: 04/02/19 15:42 Dose: 250 mls/hr Sodium Chloride (Normal Saline) 1,000 mls @ 125 mls/hr IV ASDIRECTED [facility] Stop: 04/02/19 20:30 Last Admin: 04/02/19 19:45 Dose: 125 mls/hr Lorazepam (Ativan) 1 mg PO ONETIME ONE Stop: 04/02/19 11:17 Last Admin: 04/02/19 11:23 Dose: 1 mg Naproxen (Naprosyn) 250 mg PO NOW STA Stop: 04/02/19 11:48 Last Admin: 04/02/19 12:01 Dose: 250 mg Thiamine HCl (Vitamin B-1) 100 mg PO ONETIME ONE Stop: 04/02/19 12:47 Last Admin: 04/02/19 14:20 Dose: 100 mg - Exam Quality Assessment: DVT Prophylaxis General: Alert, Oriented, Cooperative, No Acute Distress Lungs: Clear to Auscultation, Normal Respiratory Effort Cardiovascular: Regular Rate, Regular Rhythm, No Murmurs GI/Abdominal Exam: Soft, Non-Tender, No Organomegaly, No Distention Extremities: Non-Tender, No Pedal Edema Sepsis Event Note - Evaluation Sepsis Screening Result: No Definite Risk - Focused Exam Vital Signs: Vital Signs Temp Pulse Resp BP Pulse Ox 04/05/19 03:00 98.6 F 81 16 139/85 92 L Date Exam was Performed: 04/05/19 Time Exam was Performed: 09:36 - Problem List Review Problem List Initiated/Reviewed/Updated: Yes - Plan Plan:: ASSESSMENT AND PLAN METABOLIC ACIDOSIS-resolved, she is now medically stable -Saline lock IV ALCOHOL ABUSE-she is at high risk for alcohol withdrawal delirium. No evidence of withdrawal symptoms thus far -Monitor in ICU -Gabapentin 400 mg every 8 hours for 4 days, then 200 mg every 8 hours for 4 days -Alcohol withdrawal protocol SUICIDAL IDEATION-history of ongoing severe depression -72-hour hold -Suicide precautions -Transfer to inpatient psychiatric facility versus commitment proceedings MAINTENANCE ISSUES -DVT prophylaxis; SCUDs -GI prophylaxis; not indicated -Calvillo catheter; not indicated -Nutrition; regular diet -Nicotine dependence; not required CODE STATUS-FULL CODE ADMISSION STATUS-patient will be admitted to inpatient status, expect at least a 2 night hospital stay for evaluation and management of problems as outlined above. At the time of this admission I do not reasonably expected evaluation and management of this problem will require more than a 96 hour hospital stay. DISPOSITION-anticipate discharge to inpatient treatment versus commitment PRIMARY CARE PROVIDER-Dr. Joe
[2019-04-05] MEDS: QUEtiapine 25 MG Tab PO SCH (21:02)
[2019-04-05] MEDS: Doxepin 25 MG Cap PO SCH (21:02)
--- NOTE | 2019-04-06 08:49 | PCM.PN ---
- General Info Date of Service: 04/06/19 Subjective Update: Ms. Mack has been stable over the last 24 hours, she denies significant pain or discomfort. Vital signs have remained stable and she has been afebrile. Awaiting decision tomorrow concerning ongoing commitment proceedings. Functional Status: Reports: Tolerating Diet, Ambulating, Urinating - Review of Systems General: Reports: No Symptoms Pulmonary: Reports: No Symptoms Cardiovascular: Reports: No Symptoms Gastrointestinal: Reports: No Symptoms - Patient Data Vitals - Most Recent: Last Vital Signs Temp 97.7 F 04/06/19 03:00 Pulse 84 04/06/19 03:00 Resp 16 04/06/19 03:00 BP 134/86 04/06/19 03:00 Pulse Ox 95 04/06/19 03:00 Weight - Most Recent: 115 lb 11.883 oz I&O - Last 24 Hours: Intake & Output 04/05/19 04/06/19 04/06/19 22:59 06:59 14:59 Intake Total 120 Balance 120 Med Orders - Current: Current Medications Acetaminophen (Tylenol) 650 mg PO Q4H PRN PRN Reason: Pain (Mild 1-3)/fever Albuterol (Ventolin Hfa) 0 gm INH Q4H PRN PRN Reason: breath Albuterol (Proventil Neb Soln) 2.5 mg NEB Q4H PRN PRN Reason: Shortness Of Breath/wheezing Cyanocobalamin (Vitamin B12) 1,000 mcg SL DAILY [facility] Last Admin: 04/05/19 08:16 Dose: 1,000 mcg Doxepin HCl (Sinequan) 75 mg PO BEDTIME [facility] Last Admin: 04/05/19 21:02 Dose: 75 mg Eszopiclone (Lunesta) 2 mg PO BEDTIME [facility] Last Admin: 04/05/19 21:02 Dose: 2 mg Folic Acid (Folic Acid) 1 mg PO DAILY [facility] Last Admin: 04/05/19 08:15 Dose: 1 mg Lorazepam (Ativan) 0 mg IV ASDIRECTED [facility]; Protocol Lorazepam (Ativan) 0 mg PO ASDIRECTED [facility]; Protocol Last Admin: 04/03/19 15:35 Dose: 1 mg Ondansetron HCl (Zofran) 4 mg IV Q4H PRN PRN Reason: Nausea/Vomiting Polyethylene Glycol (Miralax) 17 gm PO DAILY PRN PRN Reason: Constipation Quetiapine Fumarate (Seroquel) 25 mg PO BEDTIME [facility] Last Admin: 04/05/19 21:02 Dose: 25 mg Sodium Chloride (Saline Flush) 10 ml FLUSH ASDIRECTED PRN PRN Reason: Keep Vein Open Thiamine HCl (Vitamin B-1) 100 mg PO DAILY [facility] Last Admin: 04/05/19 08:16 Dose: 100 mg Vilazodone HCl (Viibryd) 20 mg PO DAILY [facility] Last Admin: 04/05/19 08:16 Dose: 20 mg Discontinued Medications Gabapentin (Neurontin) 400 mg PO Q8H [facility] Stop: 04/06/19 07:01 Last Admin: 04/05/19 22:03 Dose: 400 mg Sodium Chloride (Normal Saline) 1,000 mls @ 1,000 mls/hr IV .BOLUS ONE Stop: 04/02/19 14:39 Last Admin: 04/02/19 14:18 Dose: 1,000 mls/hr Multivitamins/Minerals 10 ml/Thiamine HCl 100 mg/ Folic Acid 1 mg/ Magnesium Sulfate 2 gm/ Sodium Chloride 1,015.2 mls @ 100 mls/hr IV ONETIME ONE Stop: 04/03/19 02:09 Last Admin: 04/02/19 16:24 Dose: 100 mls/hr Sodium Chloride (Normal Saline) 1,000 mls @ 250 mls/hr IV ASDIRECTED [facility] Stop: 04/02/19 21:12 Last Admin: 04/02/19 15:42 Dose: 250 mls/hr Sodium Chloride (Normal Saline) 1,000 mls @ 125 mls/hr IV ASDIRECTED [facility] Stop: 04/02/19 20:30 Last Admin: 04/02/19 19:45 Dose: 125 mls/hr Lorazepam (Ativan) 1 mg PO ONETIME ONE Stop: 04/02/19 11:17 Last Admin: 04/02/19 11:23 Dose: 1 mg Naproxen (Naprosyn) 250 mg PO NOW STA Stop: 04/02/19 11:48 Last Admin: 04/02/19 12:01 Dose: 250 mg Thiamine HCl (Vitamin B-1) 100 mg PO ONETIME ONE Stop: 04/02/19 12:47 Last Admin: 04/02/19 14:20 Dose: 100 mg - Exam General: Alert, Oriented, Cooperative, No Acute Distress Lungs: Clear to Auscultation, Normal Respiratory Effort Cardiovascular: Regular Rate, Regular Rhythm, No Murmurs GI/Abdominal Exam: Soft, Non-Tender, No Organomegaly, No Distention Extremities: Non-Tender, No Pedal Edema Sepsis Event Note - Evaluation Sepsis Screening Result: No Definite Risk - Focused Exam Vital Signs: Vital Signs Temp Pulse Resp BP Pulse Ox 04/06/19 03:00 97.7 F 84 16 134/86 95 Date Exam was Performed: 04/06/19 Time Exam was Performed: 08:46 - Problem List Review Problem List Initiated/Reviewed/Updated: Yes - Plan Plan:: ASSESSMENT AND PLAN METABOLIC ACIDOSIS-resolved, she is now medically stable -Saline lock IV ALCOHOL ABUSE-No evidence of withdrawal symptoms thus far -Monitor in ICU -Gabapentin 200 mg every 8 hours for 4 days -Alcohol withdrawal protocol SUICIDAL IDEATION-history of ongoing severe depression -72-hour hold -Suicide precautions -Transfer to inpatient psychiatric facility versus commitment proceedings MAINTENANCE ISSUES -DVT prophylaxis; SCUDs -GI prophylaxis; not indicated -Calvillo catheter; not indicated -Nutrition; regular diet -Nicotine dependence; not required CODE STATUS-FULL CODE ADMISSION STATUS-patient will be admitted to inpatient status, expect at least a 2 night hospital stay for evaluation and management of problems as outlined above. At the time of this admission I do not reasonably expected evaluation and management of this problem will require more than a 96 hour hospital stay. DISPOSITION-anticipate discharge to inpatient treatment versus commitment PRIMARY CARE PROVIDER-Dr. Joe
[2019-04-06] MEDS: Folic Acid 1 MG Tab PO SCH (08:52)
[2019-04-06] MEDS: Vilazodone 20 MG Tab PO SCH (08:53)
[2019-04-06] MEDS: Thiamine 100 MG Tab PO SCH (08:53)
[2019-04-06] MEDS: Gabapentin 400 MG Cap PO SCH (08:53)
[2019-04-06] MEDS: Cyanocobalamin (Vitamin B12) 1,000 MCG Tab SL SCH (08:54)
[2019-04-06] MEDS: Ibuprofen 400 MG Tab PO PRN ×2 (09:30→15:30)
[2019-04-06] MEDS: Gabapentin 100 MG Cap PO SCH ×2 (13:58→21:02)
[2019-04-06] MEDS: Doxepin 25 MG Cap PO SCH (21:02)
[2019-04-06] MEDS: QUEtiapine 25 MG Tab PO SCH (21:02)
[2019-04-07] MEDS: Gabapentin 100 MG Cap PO SCH (05:00)
[2019-04-07] MEDS: Thiamine 100 MG Tab PO SCH (08:28)
[2019-04-07] MEDS: Folic Acid 1 MG Tab PO SCH (08:28)
[2019-04-07] MEDS: Cyanocobalamin (Vitamin B12) 1,000 MCG Tab SL SCH (08:28)
[2019-04-07] MEDS: Vilazodone 20 MG Tab PO SCH (08:28)
--- NOTE | 2019-04-07 09:11 | PCM.PN ---
- General Info Date of Service: 04/07/19 Subjective Update: No acute events overnight. There has been no evidence for alcohol withdrawal. There have been no significant behavior issues. The patient has been very flat with minimal interaction throughout the weekend. Today she is more interactive. She does not endorse depression or suicidal ideations to me this morning. Decision from the court is still pending as of this morning. Functional Status: Reports: Pain Controlled, Tolerating Diet - Review of Systems Psychiatric: Denies: Agitation - Patient Data Vitals - Most Recent: Last Vital Signs Temp 35.4 C L 04/07/19 08:00 Pulse 82 04/07/19 08:00 Resp 14 04/07/19 08:00 BP 121/79 04/07/19 08:00 Pulse Ox 95 04/07/19 08:00 Weight - Most Recent: 53.7 kg I&O - Last 24 Hours: Intake & Output 04/06/19 04/07/19 04/07/19 22:59 06:59 14:59 Intake Total 400 Balance 400 Med Orders - Current: Current Medications Acetaminophen (Tylenol) 650 mg PO Q4H PRN PRN Reason: Pain (Mild 1-3)/fever Last Admin: 04/06/19 12:05 Dose: 650 mg Albuterol (Ventolin Hfa) 0 gm INH Q4H PRN PRN Reason: breath Albuterol (Proventil Neb Soln) 2.5 mg NEB Q4H PRN PRN Reason: Shortness Of Breath/wheezing Cyanocobalamin (Vitamin B12) 1,000 mcg SL DAILY [facility] Last Admin: 04/07/19 08:28 Dose: 1,000 mcg Doxepin HCl (Sinequan) 75 mg PO BEDTIME [facility] Last Admin: 04/06/19 21:02 Dose: 75 mg Eszopiclone (Lunesta) 2 mg PO BEDTIME [facility] Last Admin: 04/06/19 21:01 Dose: 2 mg Folic Acid (Folic Acid) 1 mg PO DAILY [facility] Last Admin: 04/07/19 08:28 Dose: 1 mg Gabapentin (Neurontin) 200 mg PO Q8H [facility] Stop: 04/10/19 06:01 Last Admin: 04/07/19 05:00 Dose: 200 mg Ibuprofen (Motrin) 400 mg PO Q6H PRN PRN Reason: Pain Last Admin: 04/06/19 15:30 Dose: 400 mg Lorazepam (Ativan) 0 mg IV ASDIRECTED [facility]; Protocol Lorazepam (Ativan) 0 mg PO ASDIRECTED [facility]; Protocol Last Admin: 04/03/19 15:35 Dose: 1 mg Ondansetron HCl (Zofran) 4 mg IV Q4H PRN PRN Reason: Nausea/Vomiting Polyethylene Glycol (Miralax) 17 gm PO DAILY PRN PRN Reason: Constipation Quetiapine Fumarate (Seroquel) 25 mg PO BEDTIME [facility] Last Admin: 04/06/19 21:02 Dose: 25 mg Sodium Chloride (Saline Flush) 10 ml FLUSH ASDIRECTED PRN PRN Reason: Keep Vein Open Thiamine HCl (Vitamin B-1) 100 mg PO DAILY [facility] Last Admin: 04/07/19 08:28 Dose: 100 mg Vilazodone HCl (Viibryd) 20 mg PO DAILY [facility] Last Admin: 04/07/19 08:28 Dose: 20 mg Discontinued Medications Gabapentin (Neurontin) 400 mg PO Q8H [facility] Stop: 04/06/19 07:01 Last Admin: 04/06/19 08:53 Dose: 400 mg Sodium Chloride (Normal Saline) 1,000 mls @ 1,000 mls/hr IV .BOLUS ONE Stop: 04/02/19 14:39 Last Admin: 04/02/19 14:18 Dose: 1,000 mls/hr Multivitamins/Minerals 10 ml/Thiamine HCl 100 mg/ Folic Acid 1 mg/ Magnesium Sulfate 2 gm/ Sodium Chloride 1,015.2 mls @ 100 mls/hr IV ONETIME ONE Stop: 04/03/19 02:09 Last Admin: 04/02/19 16:24 Dose: 100 mls/hr Sodium Chloride (Normal Saline) 1,000 mls @ 250 mls/hr IV ASDIRECTED [facility] Stop: 04/02/19 21:12 Last Admin: 04/02/19 15:42 Dose: 250 mls/hr Sodium Chloride (Normal Saline) 1,000 mls @ 125 mls/hr IV ASDIRECTED [facility] Stop: 04/02/19 20:30 Last Admin: 04/02/19 19:45 Dose: 125 mls/hr Lorazepam (Ativan) 1 mg PO ONETIME ONE Stop: 04/02/19 11:17 Last Admin: 04/02/19 11:23 Dose: 1 mg Naproxen (Naprosyn) 250 mg PO NOW STA Stop: 04/02/19 11:48 Last Admin: 04/02/19 12:01 Dose: 250 mg Thiamine HCl (Vitamin B-1) 100 mg PO ONETIME ONE Stop: 04/02/19 12:47 Last Admin: 04/02/19 14:20 Dose: 100 mg - Exam Quality Assessment: No: Supplemental Oxygen General: Alert, Oriented, Cooperative, No Acute Distress Lungs: Normal Respiratory Effort GI/Abdominal Exam: Soft, No Distention Extremities: No Pedal Edema Psy/Mental Status: Alert, Normal Affect. No: Agitated Sepsis Event Note - Evaluation Sepsis Screening Result: No Definite Risk - Focused Exam Vital Signs: Vital Signs Temp Pulse Resp BP Pulse Ox 04/07/19 08:00 35.4 C L 82 14 121/79 95 04/07/19 04:00 35.9 C L 82 16 135/87 95 Date Exam was Performed: 04/07/19 Time Exam was Performed: 10:10 - Problem List Review Problem List Initiated/Reviewed/Updated: Yes - Plan Plan:: ASSESSMENT AND PLAN ALCOHOL ABUSE-No evidence of withdrawal longstanding history of heavy and episodic use. She has been through treatment multiple times and continues to abuse alcohol with evidence for unintentional self-harm while intoxicated. 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 She denies feeling depressed to me but her affect and minimal interaction through the weekend suggest severe depression. -72-hour hold -Suicide precautions -Mental health evaluation -Transfer to inpatient psychiatric facility versus commitment proceedings METABOLIC ACIDOSIS-resolved with hydration and medically stable. -Saline lock IV MAINTENANCE ISSUES -DVT prophylaxis; SCUDs -GI prophylaxis; not indicated -Calvillo catheter; not indicated -Nutrition; regular diet DISPOSITION-anticipate discharge to inpatient treatment versus commitment PRIMARY PSYCHIATRIC PROVIDER-Dr. Tatyana Bain MD
[2019-04-07] MEDS: Ibuprofen 400 MG Tab PO PRN (09:30)
--- NOTE | 2019-04-07 11:36 | PCM.DCSUM1 ---
Discharge Summary - Hospital Course Brief History: 58-year-old female with history of alcohol dependence and abuse, major depression who presented with multiple falls and weakness due to alcohol intoxication. She was admitted for management of metabolic acidosis secondary to alcohol use and further evaluation/management of her addiction and mental health issues. Diagnosis: Stroke: No - Discharge Data Discharge Date: 04/07/19 Discharge Disposition: Home, Self-Care 01 Condition: Stable - Referral to Home Health Primary Care Physician: Milena Joe NP - Discharge Diagnosis/Problem(s) (1) Alcohol abuse SNOMED Code(s): 43977467 ICD Code: F10.10 - ALCOHOL ABUSE, UNCOMPLICATED Status: Chronic (2) Alcoholic ketoacidosis SNOMED Code(s): 36293392 ICD Code: E87.2 - ACIDOSIS Status: Acute (3) Major depression SNOMED Code(s): 007185005 ICD Code: F32.9 - MAJOR DEPRESSIVE DISORDER, SINGLE EPISODE, UNSPECIFIED Status: Suspected Qualifiers: Major depression recurrence: recurrent Active/Remission status: currently active Major depression episode severity: severe Psychotic features: without psychotic features Qualified Code(s): F33.2 - Major depressive disorder, recurrent severe without psychotic features - Patient Summary/Data Consults: Consultations 04/07/19 10:32 OT Evaluation and Treatment [CONS] Routine Please Evaluate and Treat. OT Reason for Consult: Discharge Planning Pending Discharge: Yes Special Instructions: [facility] assessment This query below is only for informational purposes and is not editable. Admission Diagnosis/Problem: Metabolic acidosis with increased anion gap and accumulation of organic acids Hospital Course: Mary presented to the emergency room with weakness and intoxication after multiple falls at home. She has a long standing history of alcohol abuse and has been through treatment multiple times. Despite these attempts at treatment she has returned to drinking fairly quickly after getting home. In the emergency room she was noted to have a metabolic acidosis that was thought secondary to a starvation ketosis with her alcohol use. She was admitted to the hospital for management of this metabolic acidosis. She did endorse some suicidal ideations at the time of presentation and was admitted to the intensive care unit with suicide precautions as well. She was placed on a 72- hour hold. Overnight following admission her metabolic acidosis did resolve with hydration. There were no significant behavior issues. After she had sobered up she was very flat as far as her affect was concerned. Any sort of information was difficult to obtain with discussion at least initially. A letter of petition for commitment was sent to the court given her multiple failures and ongoing abuse with progression to self-harm due to the intoxication. She remained in the hospital over the weekend with the 72-hour hold. There is no evidence for alcohol withdrawal. Her metabolic status has remained stable after the hydration. She has been ambulating safely without assistance. She has been tolerating a regular diet. There have been no major behavior issues. At the time of discharge the plan is for the patient to go home with her parents. She will be staying there while the petition for commitment continues. If the patient were to have a relapse the plan is for her to go to a detox facility and from there into commitment to more quickly hopefully. She is stable for discharge home at this time. Her family is comfortable with the plan for her to go there while they are awaiting the commitment process. On the morning of discharge Mary did not report any suicidal ideations. She is not in total agreement with the plan but is accepting of the plan and seems to understand that she does have a significant problem with alcohol and could potentially hurt herself or others if her current trend continues. - Patient Instructions Diet: Regular Diet as Tolerated Activity: As Tolerated Driving: Do Not Drive Showering/Bathing: May Shower - Discharge Plan *PRESCRIPTION DRUG MONITORING PROGRAM REVIEWED*: Not Applicable *COPY OF PRESCRIPTION DRUG MONITORING REPORT IN PATIENT MONICA: Not Applicable Home Medications: Home Meds Albuterol Sulfate [Ventolin Hfa] 1 - 2 puff INH Q4H PRN 03/19/17 [History] Doxepin [SINEquan] 75 mg PO BEDTIME 03/19/17 [History] EPINEPHrine [Epinephrine] 1 mg INJECT ASDIRECTED 03/19/17 [History] Eszopiclone [Lunesta] 2 mg PO BEDTIME #7 tab 11/08/18 [Rx] Cyanocobalamin (Vitamin B-12) [Vitamin B-12] 1,000 mcg SL DAILY 11/19/18 [ History] QUEtiapine [SEROquel] 25 mg PO BEDTIME 04/02/19 [History] Vilazodone [Viibryd] 20 mg PO DAILY 04/02/19 [History] Oxygen Therapy Mode: Room Air Patient Handouts: Alcohol Use Disorder, Substance Use Disorder and Mental Illness Referrals: Milena Joe NP [Primary Care Provider] - - Discharge Summary/Plan Comment DC Time >30 min.: No - Patient Data Vitals - Most Recent: Last Vital Signs Temp 35.4 C L 04/07/19 08:00 Pulse 82 04/07/19 08:00 Resp 14 04/07/19 08:00 BP 121/79 04/07/19 08:00 Pulse Ox 95 04/07/19 08:00 Weight - Most Recent: 53.7 kg I&O - Last 24 hours: Intake & Output 04/06/19 04/07/19 04/07/19 22:59 06:59 14:59 Intake Total 400 240 Balance 400 240 Med Orders - Current: Current Medications Acetaminophen (Tylenol) 650 mg PO Q4H PRN PRN Reason: Pain (Mild 1-3)/fever Last Admin: 04/06/19 12:05 Dose: 650 mg Albuterol (Ventolin Hfa) 0 gm INH Q4H PRN PRN Reason: breath Albuterol (Proventil Neb Soln) 2.5 mg NEB Q4H PRN PRN Reason: Shortness Of Breath/wheezing Cyanocobalamin (Vitamin B12) 1,000 mcg SL DAILY [facility] Last Admin: 04/07/19 08:28 Dose: 1,000 mcg Doxepin HCl (Sinequan) 75 mg PO BEDTIME [facility] Last Admin: 04/06/19 21:02 Dose: 75 mg Eszopiclone (Lunesta) 2 mg PO BEDTIME [facility] Last Admin: 04/06/19 21:01 Dose: 2 mg Folic Acid (Folic Acid) 1 mg PO DAILY [facility] Last Admin: 04/07/19 08:28 Dose: 1 mg Gabapentin (Neurontin) 200 mg PO Q8H [facility] Stop: 04/10/19 06:01 Last Admin: 04/07/19 05:00 Dose: 200 mg Ibuprofen (Motrin) 400 mg PO Q6H PRN PRN Reason: Pain Last Admin: 04/07/19 09:30 Dose: 400 mg Lorazepam (Ativan) 0 mg IV ASDIRECTED [facility]; Protocol Lorazepam (Ativan) 0 mg PO ASDIRECTED [facility]; Protocol Last Admin: 04/03/19 15:35 Dose: 1 mg Ondansetron HCl (Zofran) 4 mg IV Q4H PRN PRN Reason: Nausea/Vomiting Polyethylene Glycol (Miralax) 17 gm PO DAILY PRN PRN Reason: Constipation Quetiapine Fumarate (Seroquel) 25 mg PO BEDTIME [facility] Last Admin: 04/06/19 21:02 Dose: 25 mg Sodium Chloride (Saline Flush) 10 ml FLUSH ASDIRECTED PRN PRN Reason: Keep Vein Open Thiamine HCl (Vitamin B-1) 100 mg PO DAILY [facility] Last Admin: 04/07/19 08:28 Dose: 100 mg Vilazodone HCl (Viibryd) 20 mg PO DAILY [facility] Last Admin: 04/07/19 08:28 Dose: 20 mg Discontinued Medications Gabapentin (Neurontin) 400 mg PO Q8H [facility] Stop: 04/06/19 07:01 Last Admin: 04/06/19 08:53 Dose: 400 mg Sodium Chloride (Normal Saline) 1,000 mls @ 1,000 mls/hr IV .BOLUS ONE Stop: 04/02/19 14:39 Last Admin: 04/02/19 14:18 Dose: 1,000 mls/hr Multivitamins/Minerals 10 ml/Thiamine HCl 100 mg/ Folic Acid 1 mg/ Magnesium Sulfate 2 gm/ Sodium Chloride 1,015.2 mls @ 100 mls/hr IV ONETIME ONE Stop: 04/03/19 02:09 Last Admin: 04/02/19 16:24 Dose: 100 mls/hr Sodium Chloride (Normal Saline) 1,000 mls @ 250 mls/hr IV ASDIRECTED [facility] Stop: 04/02/19 21:12 Last Admin: 04/02/19 15:42 Dose: 250 mls/hr Sodium Chloride (Normal Saline) 1,000 mls @ 125 mls/hr IV ASDIRECTED [facility] Stop: 04/02/19 20:30 Last Admin: 04/02/19 19:45 Dose: 125 mls/hr Lorazepam (Ativan) 1 mg PO ONETIME ONE Stop: 04/02/19 11:17 Last Admin: 04/02/19 11:23 Dose: 1 mg Naproxen (Naprosyn) 250 mg PO NOW STA Stop: 04/02/19 11:48 Last Admin: 04/02/19 12:01 Dose: 250 mg Thiamine HCl (Vitamin B-1) 100 mg PO ONETIME ONE Stop: 04/02/19 12:47 Last Admin: 04/02/19 14:20 Dose: 100 mg
== END 2019-04-07 12:34 | disposition home or self-care (01) | DRG 897 ==
LOC: JP.ED 10:16 → JP.ICU 14:13
PROVIDERS: ADMIT Hospitalist; ATTEND Internal Medicine
DX: F10.220 Alcohol dependence with intoxication, uncomplicated (principal); R45.851 Suicidal ideations; E87.2 Acidosis; F33.2 Major depressive disorder, recurrent severe without psychotic features; J45.909 Unspecified asthma, uncomplicated; H54.7 Unspecified visual loss; F41.9 Anxiety disorder, unspecified; F43.20 Adjustment disorder, unspecified; F17.210 Nicotine dependence, cigarettes, uncomplicated; Y90.8 Blood alcohol level of 240 mg/100 ml or more; R29.6 Repeated falls; Z90.89 Acquired absence of other organs; Z91.013 Allergy to seafood; Z91.040 Latex allergy status; Z91.018 Allergy to other foods; Z79.51 Long term (current) use of inhaled steroids; Z79.899 Other long term (current) drug therapy
CPT/HCPCS: 36415; 80048; 80053; 80305-QW; 80307; 81001; 82800; 83605; 84443; 85027; 99285; A9270-GY; J3411; J3475; J3490; J7030

== ENCOUNTER 2020-04-21 12:57 | Emergency (ER) | payer MEDICAID ==
[2020-04-21] MEDS ORDERED: Lidocaine 1% 20 ML MDV INJECT ONE (13:25)
[2020-04-21] MEDS ORDERED: Bacitracin Oint 1 GM U/D Packet TOP ONE (13:26)
--- NOTE | 2020-04-21 14:14 | EDM.PDOC ---
ED HPI GENERAL MEDICAL PROBLEM - General Chief Complaint: Laceration Stated Complaint: CUT R HAND SLICING CARROTS Time Seen by Provider: 04/21/20 14:14 Source of Information: Reports: Patient History Limitations: Reports: No Limitations - History of Present Illness INITIAL COMMENTS - FREE TEXT/NARRATIVE: pt was using a carrot slicer and it sliped and she took an area off 1/2 inch by 1 inch. tHE FLAP WAS COMPLETELY MISSING. Onset: Today, Sudden Duration: Hour(s): Location: Reports: Upper Extremity, Right, Other (THIS AREA IS ON THE THENAR ASPECT ON THE [place] ASPECT. ) Associated Symptoms: Reports: No Other Symptoms Right Hand Pain Score (Numeric/FACES): 2 - Related Data Allergies Allergy/AdvReac Type Severity Reaction Status Date / Time Fish Containing Products Allergy Severe Anaphylactic Verified 04/21/20 13:21 Shock nut - unspecified Allergy Severe Anaphylactic Verified 04/21/20 13:21 Shock latex Allergy Rash Verified 04/21/20 13:21 Home Meds: Home Meds Albuterol Sulfate [Ventolin Hfa] 1 - 2 puff INH Q4H PRN 03/19/17 [History] Doxepin [SINEquan] 75 mg PO BEDTIME 03/19/17 [History] EPINEPHrine [Epinephrine] 1 mg INJECT ASDIRECTED 03/19/17 [History] Eszopiclone [Lunesta] 2 mg PO BEDTIME #7 tab 11/08/18 [Rx] Cyanocobalamin (Vitamin B-12) [Vitamin B-12] 1,000 mcg SL DAILY 11/19/18 [History] QUEtiapine [SEROquel] 25 mg PO BEDTIME 04/02/19 [History] Vilazodone [Viibryd] 20 mg PO DAILY 04/02/19 [History] Past Medical History HEENT History: Reports: Impaired Vision Respiratory History: Reports: Asthma [employer] History: Reports: Musculoskeletal History: Reports: Fracture Other Musculoskeletal History: left humerus Neurological History: Reports: Seizure Other Neuro History: with ETOH withdrawl Psychiatric History: Reports: Addiction, Anxiety, Depression Other Psychiatric History: ADJUSTMENT DISORDER Dermatologic History: Reports: Eczema - Infectious Disease History Infectious Disease History: Reports: Chicken Pox - Past Surgical History HEENT Surgical History: Reports: Tonsillectomy Social & Family History - Tobacco Use Tobacco Use Status *Q: Light Tobacco User Years of Tobacco use: 10 Packs/Tins Daily: 0.5 - Caffeine Use Caffeine Use: Reports: None - Recreational Drug Use Recreational Drug Use: No ED ROS GENERAL - Review of Systems Review Of Systems: See Below Constitutional: Reports: No Symptoms HEENT: Reports: No Symptoms Respiratory: Reports: No Symptoms Endocrine: Reports: No Symptoms GI/Abdominal: Reports: No Symptoms Musculoskeletal: Reports: Other (LACERATION RT HAND. ) ED EXAM, SKIN/RASH Exam: See Below Text/Narrative:: PT HAS A FLAP SKIN REMOVED ON THE THENAR ASPECT ON THE RT. Exam Limited By: No Limitations General Appearance: Alert, Anxious Extremities: Other (LACERATION --FLAP REMOVED FROM THE THENAR ASPECT. THE FLAP IS COMPLETELY GONE. ) Neurological: Alert, Oriented, Normal Cognition Psychiatric: Normal Affect Course - Vital Signs Last Recorded V/S: Last Vital Signs Temp 36.3 C 04/21/20 13:19 Pulse 90 04/21/20 13:19 Resp 14 04/21/20 13:19 BP 155/100 H 04/21/20 13:19 Pulse Ox 97 04/21/20 13:19 - Orders/Labs/Meds Meds: Medications Discontinued Medications Generic Name Dose Route Start Last Admin Trade Name Freq PRN Reason Stop Dose Admin Bacitracin 1 dose 04/21/20 13:26 04/21/20 13:35 Bacitracin Oint 1 Gm U/D Packet TOP 04/21/20 13:27 1 dose ONETIME ONE Administration Lidocaine HCl 20 ml 04/21/20 13:25 04/21/20 13:35 Lidocaine 1% 20 Ml Mdv INJECT 04/21/20 13:26 20 ml ONETIME ONE Administration - Re-Assessments/Exams Free Text/Narrative Re-Assessment/Exam: 04/21/20 14:19 THE AREA WAS CLEANSED WELL INFILTRATED WITH LIDOCAINE. tHE WOUND WAS BROUGHT TOGETHER SOME WITH 5-0 CHROMIC. pT IS ADVISED THAT THIS WILL HAVE TO GRANULATE IN Departure - Departure Time of Disposition: 14:21 Disposition: Home, Self-Care 01 Condition: Fair Clinical Impression: Laceration - Discharge Information Referrals: PCP,None [Primary Care Provider] - Forms: ED Department Discharge Care Plan Goals: LEAVE PRESENT DRESSIN ON FOR THE NEXT 2 DAYS. REMOVE AND CLEAN SLIGHTLY, APPLY BACATRACIN AND REDRESS DAILY SUTURES SHOULD BE REMOVED IN 8 DAYS. AT THAT PONT SOAK DAILY AND APPLY BACATRACIN. THIS SHOULD BE FOLLOWED BY REGULAR [facility]YSIAN. Sepsis Event Note (ED) - Evaluation Sepsis Screening Result: No Definite Risk - Focused Exam Vital Signs: Vital Signs Temp Pulse Resp BP Pulse Ox 04/21/20 13:19 36.3 C 90 14 155/100 H 97
== END 2020-04-21 14:37 | disposition home or self-care (01) ==
LOC: JP.ED 12:57
DX: S61.411A Laceration without foreign body of right hand, initial encounter (principal); J45.909 Unspecified asthma, uncomplicated; Z72.0 Tobacco use; Z79.899 Other long term (current) drug therapy; Z91.013 Allergy to seafood; Z91.018 Allergy to other foods; Z91.040 Latex allergy status; W26.8XXA Contact with other sharp object(s), not elsewhere classified, initial encounter
CPT/HCPCS: 12001; 12002; 99282

== ENCOUNTER 2020-11-05 19:46 | Emergency (ER) | payer MEDICAID ==
--- NOTE | 2020-11-05 20:31 | EDM.PDOC ---
ED HPI GENERAL MEDICAL PROBLEM - General Chief Complaint: Gastrointestinal Problem Stated Complaint: MEDICAL VIA [place] Time Seen by Provider: 11/05/20 20:08 Source of Information: Reports: Patient History Limitations: Reports: No Limitations - History of Present Illness INITIAL COMMENTS - FREE TEXT/NARRATIVE: And is a 60-year-old female brought in by [facility] for evaluation of acute onset of diarrhea. The patient reports that her symptoms started out of the clear blue at 1900 hrs. and that she has had 4-5 diarrheal stools since then. She was able to provide us with both the urine and stool sample but only produced some all amount of stool. She has had no fever or chills. She denies any nausea or vomiting but did report that she had nausea and vomiting 2 days ago. She has had no loss of appetite in fact she is just completed eating a meal consisting of steak and carrots prior to the onset of diarrhea. The patient is terrified that something is wrong with her as she "never gets diarrhea". Ironically, the patient had a episode of diarrhea about a year ago for which she was seen. - Related Data Allergies Allergy/AdvReac Type Severity Reaction Status Date / Time Fish Containing Products Allergy Severe Anaphylactic Verified 04/21/20 13:21 Shock nut - unspecified Allergy Severe Anaphylactic Verified 04/21/20 13:21 Shock latex Allergy Rash Verified 04/21/20 13:21 Home Meds: Home Meds EPINEPHrine [Epinephrine] 1 mg INJECT ASDIRECTED 03/19/17 [History] QUEtiapine [SEROquel] 25 mg PO BEDTIME 04/02/19 [History] hydrOXYzine HCL [Atarax] 25 mg PO BEDTIME 11/05/20 [History] Past Medical History HEENT History: Reports: Impaired Vision Respiratory History: Reports: Asthma [employer] History: Reports: Musculoskeletal History: Reports: Fracture Other Musculoskeletal History: left humerus Neurological History: Reports: Seizure Other Neuro History: with ETOH withdrawl Psychiatric History: Reports: Addiction, Anxiety, Depression Other Psychiatric History: ADJUSTMENT DISORDER Dermatologic History: Reports: Eczema - Infectious Disease History Infectious Disease History: Reports: Chicken Pox - Past Surgical History HEENT Surgical History: Reports: Tonsillectomy Social & Family History - Tobacco Use Tobacco Use Status *Q: Current Every Day Tobacco User Years of Tobacco use: 2 Packs/Tins Daily: 0.5 - Caffeine Use Caffeine Use: Reports: Tea - Recreational Drug Use Recreational Drug Use: No ED ROS GENERAL - Review of Systems Review Of Systems: See Below Constitutional: Reports: Diaphoresis HEENT: Reports: No Symptoms Respiratory: Reports: No Symptoms Cardiovascular: Reports: No Symptoms Endocrine: Reports: No Symptoms GI/Abdominal: Reports: Diarrhea (Starting an hour prior to arrival), Nausea (2 days ago), Vomiting (2 days ago). Denies: Abdominal Pain, Decreased Appetite, Hematemesis, Hematochezia, Melena, Stool Incontinence : Reports: No Symptoms Musculoskeletal: Reports: No Symptoms Skin: Reports: No Symptoms Neurological: Reports: No Symptoms Psychiatric: Reports: Anxiety (Patient is in great fear that something seriously is wrong with her.) Hematologic/Lymphatic: Reports: No Symptoms Immunologic: Reports: Food Allergy (Multiple food allergies including fish and nuts) ED EXAM, GI/ABD - Physical Exam Exam: See Below Exam Limited By: No Limitations General Appearance: Alert, Anxious, Mild Distress Eyes: Bilateral: EOMI Throat/Mouth: Normal Oropharynx, Normal Voice, No Airway Compromise Head: Atraumatic, Normocephalic, Other (Eczema of both eyebrows and forehead) Neck: Normal Inspection, Supple, Non-Tender Respiratory/Chest: No Respiratory Distress, Lungs Clear, Normal Breath Sounds Cardiovascular: Normal Peripheral Pulses, Regular Rate, Rhythm, No Murmur GI/Abdominal Exam: Soft, Non-Tender, Abnormal Bowel Sounds (Diminished bowel sounds). No: Guarding, Rebound Extremities: Normal Inspection, Normal Range of Motion, No Pedal Edema Neurological: Alert, Oriented, Normal Cognition, No Motor/Sensory Deficits Psychiatric: Anxious (Very anxious) Skin Exam: Warm, Dry, Erythema (Eczema on forehead and both eyebrows) Course - Vital Signs Last Recorded V/S: Last Vital Signs Temp 36.9 C 11/05/20 19:54 Pulse 73 11/05/20 21:21 Resp 16 11/05/20 19:54 BP 172/94 H 11/05/20 21:21 Pulse Ox 98 11/05/20 21:21 - Orders/Labs/Meds Orders: Active Orders 24 hr Category Date Time Status C Diff [CLOS DIFFICILE PCR W/REFLEX] [RM] Stat Lab 11/05/20 20:12 Received Sodium Chloride 0.9% [Normal Saline] 1,000 ml Med 11/05/20 21:00 Active IV ASDIRECTED Sodium Chloride 0.9% [Saline Flush] Med 11/05/20 20:47 Active 10 ml FLUSH ASDIRECTED PRN Saline Lock Insert [OM.PC] Routine Oth 11/05/20 20:47 Ordered Medication Orders Sodium Chloride (Normal Saline) 1,000 mls @ 999 mls/hr IV ASDIRECTED JUSTO Last Admin: 11/05/20 21:04 Dose: 999 mls/hr Documented by: LUDA Sodium Chloride (Sodium Chloride 0.9% 10 Ml Syringe) 10 ml FLUSH ASDIRECTED PRN PRN Reason: Keep Vein Open Last Admin: 11/05/20 21:05 Dose: 10 ml Documented by: LUDA Labs: Laboratory Tests 11/05/20 11/05/20 11/05/20 Range/Units 20:22 20:22 22:15 WBC 8.2 (4.5-11.0) K/uL RBC 4.73 (3.30-5.50) M/uL Hgb 13.1 D (12.0-15.0) g/dL Hct 36.9 (36.0-48.0) % MCV 78 L (80-98) fL MCH 28 (27-31) pg MCHC 36 (32-36) % Plt Count 349 (150-400) K/uL Neut % (Auto) 67.3 H (36-66) % Lymph % (Auto) 17.5 L (24-44) % [place] % (Auto) 9.8 H (2-6) % Eos % (Auto) 4.7 H (2-4) % Baso % (Auto) 0.7 (0-1) % Sodium 120 L 126 L (140-148) mmol/L Potassium 3.8 (3.6-5.2) mmol/L Chloride 86 L (100-108) mmol/L Carbon Dioxide 28 (21-32) mmol/L Anion Gap 9.8 (5.0-14.0) mmol/L BUN 15 (7-18) mg/dL Creatinine 0.6 (0.6-1.0) mg/dL Est Cr Clr Drug Dosing 74.30 mL/min Estimated GFR (MDRD) > 60 (>60) Glucose 91 (74-106) mg/dL Calcium 8.5 (8.5-10.1) mg/dL Total Bilirubin 0.4 (0.2-1.0) mg/dL AST 17 (15-37) U/L ALT 25 (12-78) U/L Alkaline Phosphatase 88 (46-116) U/L Total Protein 7.5 (6.4-8.2) g/dL Albumin 3.6 (3.4-5.0) g/dL Globulin 3.9 H (2.3-3.5) g/dL Albumin/Globulin Ratio 0.9 L (1.2-2.2) Meds: Medications Generic Name Dose Route Start Last Admin Trade Name Freq PRN Reason Stop Dose Admin Sodium Chloride 1,000 mls @ 999 mls/hr 11/05/20 21:00 11/05/20 21:04 Normal Saline IV 999 mls/hr ASDIRECTED JUSTO Administration Sodium Chloride 10 ml 11/05/20 20:47 11/05/20 21:05 Sodium Chloride 0.9% 10 Ml Syringe FLUSH 10 ml ASDIRECTED PRN Administration Keep Vein Open - Re-Assessments/Exams Free Text/Narrative Re-Assessment/Exam: 11/05/20 20:48 I reviewed the patient's labs showing a CBC with a leukocyte count of 8.2, hemoglobin of 13.1, hematocrit of 36.9 and a platelet count of 349,000. Comprehensive metabolic panel was unremarkable except for sodium of 120, chloride of 86, potassium 3.8 with a bicarbonate of 28, BUN of 15 with a creatinine of 0.6, and a glucose of 91. Because of the hyponatremia, the patient was bolused with a liter of IV normal saline. We will recheck her sodium after the bolus. This likely represents a dehydration state with excess free water intake. Moreover, given the patient's symptoms with nausea and vomiting 2 days ago and diarrhea today, this is likely a viral gastroenteritis given the normal CBC. She has not had any subsequent nausea or vomiting so she likely will not need an antiemetic. I will have her follow the BRAT diet until the diarrhea resolves at which point she can restart dairy with yogurt to replenish the healthy gut karissa. There is no indication that the patient requires hospitalization at this time as she remains vitally stable. I did reassure her that this is likely a viral gastroenteritis and will likely pass in the course of the next couple of days. 11/05/20 22:39 repeat sodium after the infusion of normal saline is now 126. This is much better but also points to the fact that there is probably an excess of free water that is being ingested. I recommend the patient drink electrolyte rich solution like Gatorade Zero or propel. At this time I believe she is suitable for discharge home in satisfactory condition. Indications return to the ED were discussed. Departure - Departure Time of Disposition: 22:40 Disposition: Home, Self-Care 01 Clinical Impression: Hyponatremia, Diarrhea, Gastroenteritis - Discharge Information Instructions: Viral Gastroenteritis, Adult, [id number], Hyponatremia, D ehydration, Adult, [id number] Referrals: PCP,None [Primary Care Provider] - Forms: ED Department Discharge Care Plan Goals: Your work-up is shown that you have a viral gastroenteritis and are somewhat dehydrated. Because of this your serum sodium level has dropped necessitating the need for some IV fluids with sodium chloride. I recommend to diminish the diarrhea to follow the BRAT diet which consists of bananas, rice, applesauce, and toast which are easier to digest and cause less diarrhea. Once the diarrhea is gone you may restart with dairy like yogurt to replenish the healthy gut bacteria. This is important because a provide nutrients that your body requires. In addition or in substitution you may also use one of the [id number] probiotics. My recommendation is using Florajen. For the hyponatremia, this is likely due to excess free water ingestion so I would recommend drinking electrolyte rich fluids like Gatorade Zero or Propel Zero. Sepsis Event Note (ED) - Evaluation Sepsis Screening Result: No Definite Risk - Focused Exam Vital Signs: Vital Signs Temp Pulse Resp BP Pulse Ox 11/05/20 21:21 73 172/94 H 98 11/05/20 19:54 36.9 C 77 16 186/95 H 98 - Problem List & Annotations (1) Hyponatremia SNOMED Code(s): 69065502 Code(s): E87.1 - HYPO-OSMOLALITY AND HYPONATREMIA Status: Acute Priority: Medium Current Visit: Yes (2) Diarrhea SNOMED Code(s): 92748781 Code(s): R19.7 - DIARRHEA, UNSPECIFIED Status: Acute Priority: Medium Current Visit: Yes (3) Gastroenteritis SNOMED Code(s): 00685376 Code(s): K52.9 - NONINFECTIVE GASTROENTERITIS AND COLITIS, UNSPECIFIED Status: Acute Priority: Medium Current Visit: Yes - Problem List Review Problem List Initiated/Reviewed/Updated: Yes - My Orders Last 24 Hours: My Active Orders 11/05/20 20:12 C Diff [CLOS DIFFICILE PCR W/REFLEX] [RM] Stat 11/05/20 20:47 Sodium Chloride 0.9% [Saline Flush] 10 ml FLUSH ASDIRECTED PRN Saline Lock Insert [OM.PC] Routine 11/05/20 21:00 Sodium Chloride 0.9% [Normal Saline] 1,000 ml IV ASDIRECTED - Assessment/Plan Last 24 Hours: My Active Orders 11/05/20 20:12 C Diff [CLOS DIFFICILE PCR W/REFLEX] [RM] Stat 11/05/20 20:47 Sodium Chloride 0.9% [Saline Flush] 10 ml FLUSH ASDIRECTED PRN Saline Lock Insert [OM.PC] Routine 11/05/20 21:00 Sodium Chloride 0.9% [Normal Saline] 1,000 ml IV ASDIRECTED
[2020-11-05] MEDS ORDERED: Sodium Chloride 0.9% 10 ML Syringe FLUSH PRN (20:47)
[2020-11-05] MEDS ORDERED: Sodium Chloride 0.9% 1,000 ML IV SCH (21:00)
== END 2020-11-05 23:02 | disposition home or self-care (01) ==
LOC: JP.ED 19:46
DX: K52.9 Noninfective gastroenteritis and colitis, unspecified (principal); E87.1 Hypo-osmolality and hyponatremia; Z91.013 Allergy to seafood; Z91.010 Allergy to peanuts; Z91.048 Other nonmedicinal substance allergy status; Z72.0 Tobacco use
CPT/HCPCS: 36415; 80053; 84295; 85025; 87493; 99284; J7030

== ENCOUNTER 2020-11-09 23:04 | Emergency (ER) | payer MEDICAID ==
--- NOTE | 2020-11-09 23:34 | EDM.PDOC ---
ED HPI GENERAL MEDICAL PROBLEM - General Chief Complaint: Gastrointestinal Problem Stated Complaint: MEDICAL VIA [place] Time Seen by Provider: 11/09/20 23:15 Source of Information: Reports: Patient, EMS History Limitations: Reports: No Limitations - History of Present Illness INITIAL COMMENTS - FREE TEXT/NARRATIVE: 60-year-old female with 2 hours of diarrhea, became very anxious and came in by ambulance. However she now feels better and has changed her mind and is thinking about just calling her dad for a ride. She has no fever, no abdominal pain, no other symptoms. She was in 4 days ago with similar symptoms and it resolved after couple hours. She has not had a drink in 2-1/2 years. Onset: Sudden Duration: Hour(s): (Diarrhea for the last 3 to 4 hours) Associated Symptoms: Reports: No Other Symptoms - Related Data Allergies Allergy/AdvReac Type Severity Reaction Status Date / Time Fish Containing Products Allergy Severe Anaphylactic Verified 11/09/20 23:25 Shock nut - unspecified Allergy Severe Anaphylactic Verified 11/09/20 23:25 Shock latex Allergy Rash Verified 11/09/20 23:25 Home Meds: Home Meds EPINEPHrine [Epinephrine] 1 mg INJECT ASDIRECTED 03/19/17 [History] QUEtiapine [SEROquel] 25 mg PO BEDTIME 04/02/19 [History] hydrOXYzine HCL [Atarax] 25 mg PO BEDTIME 11/05/20 [History] Past Medical History HEENT History: Reports: Impaired Vision Respiratory History: Reports: Asthma [employer] History: Reports: Musculoskeletal History: Reports: Fracture Other Musculoskeletal History: left humerus Neurological History: Reports: Seizure Other Neuro History: with ETOH withdrawl Psychiatric History: Reports: Addiction, Anxiety, Depression Other Psychiatric History: ADJUSTMENT DISORDER Dermatologic History: Reports: Eczema - Infectious Disease History Infectious Disease History: Reports: Chicken Pox - Past Surgical History HEENT Surgical History: Reports: Tonsillectomy Social & Family History - Tobacco Use Tobacco Use Status *Q: Current Every Day Tobacco User Years of Tobacco use: 2 Packs/Tins Daily: 0.5 - Caffeine Use Caffeine Use: Reports: Tea - Recreational Drug Use Recreational Drug Use: No ED ROS GENERAL - Review of Systems Review Of Systems: See Below Constitutional: Denies: Fever, Chills Respiratory: Denies: Shortness of Breath Cardiovascular: Denies: Chest Pain GI/Abdominal: Reports: Diarrhea. Denies: Abdominal Pain, Nausea, Vomiting Skin: Reports: Other (Widespread erythematous rash which is chronic) Neurological: Denies: Headache Psychiatric: Reports: Anxiety ED EXAM, GENERAL - Physical Exam Exam: See Below Exam Limited By: No Limitations General Appearance: Alert, Anxious Eye Exam: Bilateral Eye: Normal Inspection Head: Atraumatic Respiratory/Chest: No Respiratory Distress GI/Abdominal: Soft, Non-Tender Neurological: Alert, Oriented Psychiatric: Anxious Course - Vital Signs Last Recorded V/S: Last Vital Signs Temp 97.7 F 11/09/20 23:29 Pulse 82 11/09/20 23:29 Resp 16 11/09/20 23:29 BP 192/98 H 11/09/20 23:29 Pulse Ox 96 11/09/20 23:29 - Re-Assessments/Exams Free Text/Narrative Re-Assessment/Exam: 11/10/20 02:47 Shortly after arrival the patient had a loose stool but not diarrhea, and insisted on leaving without any further work-up. Departure - Departure Time of Disposition: 23:41 Disposition: Home, Self-Care 01 Clinical Impression: Diarrhea Qualifiers: Diarrhea type: unspecified type Qualified Code(s): R19.7 - Diarrhea, unspecified - Discharge Information Instructions: Diarrhea, Adult, [id number] Referrals: PCP,Unknown [Primary Care Provider] - Forms: ED Department Discharge Care Plan Goals: Stay hydrated, increase diet and activity as tolerated and continue your regular medications. Return anytime if diarrhea is persistent and you develop weakness, pain, fever or other concerns. Sepsis Event Note (ED) - Evaluation Sepsis Screening Result: No Definite Risk - Focused Exam Vital Signs: Vital Signs Temp Pulse Resp BP Pulse Ox 11/09/20 23:29 97.7 F 82 16 192/98 H 96 11/09/20 23:11 97.7 F 82 16 192/98 H 96
== END 2020-11-09 23:41 | disposition home or self-care (01) ==
LOC: JP.ED 23:04
DX: R19.7 Diarrhea, unspecified (principal); Z91.013 Allergy to seafood; Z91.018 Allergy to other foods; Z91.040 Latex allergy status; Z72.0 Tobacco use
CPT/HCPCS: 99283

== ENCOUNTER 2022-01-19 07:39 | Day surgery (SDC) | payer MEDICAID ==
[2022-01-19] MEDS ORDERED: Sodium Chloride 0.9% 10 ML Syringe FLUSH PRN (08:30)
== END 2022-01-19 09:10 | disposition home or self-care (01) ==
LOC: JP.SDS 07:39
PROVIDERS: ATTEND Ophthalmology
DX: H26.9 Unspecified cataract (principal); J45.909 Unspecified asthma, uncomplicated; E66.9 Obesity, unspecified; Z91.040 Latex allergy status; Z91.030 Bee allergy status; Z91.018 Allergy to other foods; Z68.24 Body mass index [BMI] 24.0-24.9, adult
CPT/HCPCS: 66984; J3490; V2632

== ENCOUNTER 2022-03-09 08:02 | Day surgery (SDC) | payer MEDICAID ==
[2022-03-09] MEDS ORDERED: Sodium Chloride 0.9% 10 ML Syringe FLUSH PRN (08:30)
== END 2022-03-09 09:15 | disposition home or self-care (01) ==
LOC: JP.SDS 08:02
PROVIDERS: ATTEND Ophthalmology
DX: H26.9 Unspecified cataract (principal); J45.909 Unspecified asthma, uncomplicated; F17.200 Nicotine dependence, unspecified, uncomplicated; Z86.718 Personal history of other venous thrombosis and embolism; Z91.040 Latex allergy status; Z91.013 Allergy to seafood; Z79.899 Other long term (current) drug therapy
CPT/HCPCS: J3490; V2632